=== PATIENT | female | born 1935 | race Caucasian/White ===

== ENCOUNTER → 2018-03-23 | Outpatient (CLI) | payer MEDICARE, MEDICAID ==
[2018-03-23 11:32] LABS: BASOPHILS % (AUTO) 1 % (0-10); EOSINOPHILS # (AUTO) 0.1 10^3/uL (0.0-0.3); EOSINOPHILS % (AUTO) 1 % (0-10); HEMATOCRIT 39 % (35-52); HEMOGLOBIN 13.6 G/DL (11.5-16.0); LYMPHOCYTES # (AUTO) 1.7 X 10^3 (1.0-4.0); LYMPHOCYTES % (AUTO) 26 % (12-44); MEAN CORPUSCULAR HEMOGLOBIN 33 PG (25-34); MEAN CORPUSCULAR HGB CONC 35 G/DL (32-36); MEAN CORPUSCULAR VOLUME 92 FL (80-99); MEAN PLATELET VOLUME 9.7 FL (7.4-10.4); MONOCYTES # (AUTO) 0.6 X 10^3 (0.0-1.0); MONOCYTES % (AUTO) 9 % (0-12); NEUTROPHILS # (AUTO) 4.2 X 10^3 (1.8-7.8); NEUTROPHILS % (AUTO) 63 % (42-75); PLATELET COUNT 306 10^3/uL (130-400); RED BLOOD COUNT 4.18 10^6/uL (4.35-5.85); RED CELL DISTRIBUTION WIDTH 12.8 % (10.0-14.5); WHITE BLOOD COUNT 6.6 10^3/uL (4.3-11.0)
[2018-03-23 11:45] LABS: CALCIUM 9.8 MG/DL (8.5-10.1); CREATININE SERUM 1.19 MG/DL (0.60-1.30); POTASSIUM 4.6 MMOL/L (3.6-5.0)
[2018-03-23 12:14] LABS: ERYTHROCYTE SEDIMENTATION RATE 47 MM/HR (0-30)
== END ==
LOC: LAB 11:07
PROVIDERS: ATTEND Nurse Practitioner
DX: E11.621 Type 2 diabetes mellitus with foot ulcer (principal); L97.514 Non-pressure chronic ulcer of other part of right foot with necrosis of bone
CPT/HCPCS: 36415; 80048; 83036; 85025; 85652

== ENCOUNTER → 2018-03-23 | Outpatient (CLI) | payer MEDICARE, OTHER, MEDICAID | LOC: WOUNDCARE 08:17 | PROVIDERS: ATTEND Nurse Practitioner | DX: E11.621 Type 2 diabetes mellitus with foot ulcer (principal); L97.514 Non-pressure chronic ulcer of other part of right foot with necrosis of bone | CPT/HCPCS: 11044; 87070; 87075; 87205 ==

== ENCOUNTER → 2018-03-30 | Outpatient (CLI) | payer MEDICARE, OTHER, MEDICAID | LOC: WOUNDCARE 10:44 | PROVIDERS: ATTEND Nurse Practitioner | DX: E11.621 Type 2 diabetes mellitus with foot ulcer (principal); L97.514 Non-pressure chronic ulcer of other part of right foot with necrosis of bone | CPT/HCPCS: 11042 ==

== ENCOUNTER → 2018-04-15 | Outpatient (CLI) | payer MEDICARE, OTHER, MEDICAID | LOC: WOUNDCARE 11:27 | PROVIDERS: ATTEND Nurse Practitioner | DX: E11.621 Type 2 diabetes mellitus with foot ulcer (principal); L97.514 Non-pressure chronic ulcer of other part of right foot with necrosis of bone; I70.235 Atherosclerosis of native arteries of right leg with ulceration of other part of foot | CPT/HCPCS: 11042 ==

== ENCOUNTER → 2018-04-22 | Outpatient (CLI) | payer MEDICARE, OTHER, MEDICAID | LOC: WOUNDCARE 10:56 | PROVIDERS: ATTEND Surgery | DX: E11.621 Type 2 diabetes mellitus with foot ulcer (principal); I70.235 Atherosclerosis of native arteries of right leg with ulceration of other part of foot; L97.514 Non-pressure chronic ulcer of other part of right foot with necrosis of bone | CPT/HCPCS: 99213 ==

== ENCOUNTER → 2018-04-29 | Outpatient (CLI) | payer MEDICARE, OTHER, MEDICAID | LOC: WOUNDCARE 10:47 | PROVIDERS: ATTEND Surgery | DX: E11.621 Type 2 diabetes mellitus with foot ulcer (principal); I70.235 Atherosclerosis of native arteries of right leg with ulceration of other part of foot; L97.514 Non-pressure chronic ulcer of other part of right foot with necrosis of bone | CPT/HCPCS: 99212 ==

== ENCOUNTER → 2018-05-06 | Outpatient (CLI) | payer MEDICARE, OTHER, MEDICAID | LOC: WOUNDCARE 10:35 | PROVIDERS: ATTEND Nurse Practitioner | DX: L97.512 Non-pressure chronic ulcer of other part of right foot with fat layer exposed (principal); I70.235 Atherosclerosis of native arteries of right leg with ulceration of other part of foot; E11.621 Type 2 diabetes mellitus with foot ulcer | CPT/HCPCS: 99212 ==

== ENCOUNTER → 2018-05-20 | Outpatient (CLI) | payer MEDICARE, OTHER, MEDICAID | LOC: WOUNDCARE 11:03 | PROVIDERS: ATTEND Nurse Practitioner | DX: E11.621 Type 2 diabetes mellitus with foot ulcer (principal); I70.235 Atherosclerosis of native arteries of right leg with ulceration of other part of foot; L97.512 Non-pressure chronic ulcer of other part of right foot with fat layer exposed | CPT/HCPCS: 99212 ==

== ENCOUNTER → 2018-06-24 | Outpatient (CLI) | payer MEDICARE, MEDICAID | LOC: LAB 11:53 | PROVIDERS: ATTEND Nurse Practitioner | DX: E11.621 Type 2 diabetes mellitus with foot ulcer (principal); L97.512 Non-pressure chronic ulcer of other part of right foot with fat layer exposed; I70.235 Atherosclerosis of native arteries of right leg with ulceration of other part of foot | CPT/HCPCS: 36415; 83036 ==

== ENCOUNTER → 2018-06-24 | Outpatient (CLI) | payer MEDICARE, OTHER, MEDICAID | LOC: WOUNDCARE 10:52 | PROVIDERS: ATTEND Nurse Practitioner | DX: L97.512 Non-pressure chronic ulcer of other part of right foot with fat layer exposed (principal); I70.235 Atherosclerosis of native arteries of right leg with ulceration of other part of foot; E11.621 Type 2 diabetes mellitus with foot ulcer | CPT/HCPCS: 97597 ==

== ENCOUNTER → 2018-06-29 | Outpatient (CLI) | payer MEDICARE, MEDICAID | LOC: RAD 08:40 | PROVIDERS: ATTEND Nurse Practitioner | DX: E11.621 Type 2 diabetes mellitus with foot ulcer (principal); L97.512 Non-pressure chronic ulcer of other part of right foot with fat layer exposed; I70.235 Atherosclerosis of native arteries of right leg with ulceration of other part of foot; Z53.8 Procedure and treatment not carried out for other reasons ==

== ENCOUNTER → 2018-07-01 | Outpatient (CLI) | payer MEDICARE, MEDICAID | LOC: WOUNDCARE 10:45 | PROVIDERS: ATTEND Nurse Practitioner | DX: E11.621 Type 2 diabetes mellitus with foot ulcer (principal); I70.235 Atherosclerosis of native arteries of right leg with ulceration of other part of foot; L97.512 Non-pressure chronic ulcer of other part of right foot with fat layer exposed | CPT/HCPCS: 99212 ==

== ENCOUNTER → 2018-07-22 | Outpatient (CLI) | payer MEDICARE, MEDICAID | LOC: WOUNDCARE 10:36 | PROVIDERS: ATTEND Nurse Practitioner | DX: E11.621 Type 2 diabetes mellitus with foot ulcer (principal); I70.235 Atherosclerosis of native arteries of right leg with ulceration of other part of foot; L97.512 Non-pressure chronic ulcer of other part of right foot with fat layer exposed | CPT/HCPCS: 99213 ==

== ENCOUNTER → 2018-08-05 | Outpatient (CLI) | payer MEDICARE, MEDICAID | LOC: WOUNDCARE 10:58 | PROVIDERS: ATTEND Nurse Practitioner | DX: E11.621 Type 2 diabetes mellitus with foot ulcer (principal); L97.512 Non-pressure chronic ulcer of other part of right foot with fat layer exposed; I70.235 Atherosclerosis of native arteries of right leg with ulceration of other part of foot | CPT/HCPCS: 99213 ==

== ENCOUNTER → 2018-08-11 | Outpatient (CLI) | payer MEDICARE, MEDICAID ==
[~2018-08-11] VITALS: Ht 172.7 cm; Wt 75.3 kg
[~2018-08-11] MED LIST: ALBU18HF2 IH; AMLO5TAB7 PO; APIX5TAB PO; ASPI-586 PO; ATOR80TA76 PO; CATHETER FLUSH 10 ML SYR IV PRN; CHOL100045 PO; CLOP75TA28 PO; DILT180C PO; DOXY100C2 PO; ESOM40CA52 PO; INSU100V SQ; LEVO50TA6 PO; LISI-556 PO; METF500T8 PO; NORT25CA PO; OMEG1CAP58 PO; REGADENOSON 0.4 MG/5 ML SYR (LEXISCAN) IV ONE; VITA100T8 PO
[2018-08-11 09:40] VITALS: BP 154/91
[2018-08-11 09:41] VITALS: BP 145/88
--- NOTE | 2018-08-11 16:31 | STRESS TEST ---
DATE OF SERVICE: 08/11/2018 LEXISCAN MYOVIEW STRESS TEST REPORT Baseline heart rate is 96. Baseline blood pressure 154/91. Baseline EKG is sinus rhythm with occasional APCs with no ischemic changes. In summary, the patient received 10.16 mCi of technetium-99 Myoview and the resting images were obtained. Then, the patient received 0.4 mg of Lexiscan followed by 30.1 mCi of technetium-99 Myoview. Throughout the test, there were no EKG changes. The resting and stress images were reviewed and compared in the short axis, horizontal long axis, and vertical long axis views. Review of the images showed good radiotracer uptake, breast attenuation with mild decreased uptake at the mid to apical anterolateral wall with subtle reversibility. SSS is 4, SDS 2, TID value 1.37, which is elevated for this patient's age. On the gated images, the left ventricle appeared to be in normal size with normal contractility. Calculated ejection fraction 52%. CONCLUSION: 1. The patient tolerated Lexiscan well. 2. Transient ischemic dilatation with TID value 1.37. 3. Normal left ventricular size with breast attenuation, mild ischemia involving the mid to apical anterolateral wall. Job ID: [id number] DocumentID: [id number] Dictated Date: 08/11/2018 15:19:14 Lathe Hand Date: 08/11/2018 16:31:05 Dictated By: GURWINDER CHINCHILLA MD
== END ==
LOC: CARD 08:03
PROVIDERS: ATTEND Internal Medicine Cardiovascular Disease
DX: E11.9 Type 2 diabetes mellitus without complications (principal); I10 Essential (primary) hypertension; E78.2 Mixed hyperlipidemia; I73.9 Peripheral vascular disease, unspecified
CPT/HCPCS: 78452; 93017; 93306

== ENCOUNTER 2018-08-18 07:58 | Day surgery (SDC) | payer MEDICARE, OTHER, MEDICAID ==
[~2018-08-18] VITALS: Ht 172.7 cm; Wt 75.3 kg
[2018-08-18] VITALS (10 sets, daily range): BP systolic 97–162; BP diastolic 73–100
[2018-08-18] MEDS ORDERED: HEParin (CATH LAB) 2,000 ML IV ONE (08:04)
[2018-08-18] MEDS ORDERED: LIDOCAINE 1% INJ 20 ML 20 ML VIAL ONE (08:04)
[2018-08-18] MEDS ORDERED: NS IV 1000 ML 1,000 ML ONE (08:04)
[2018-08-18 08:28] LABS: HEMOGLOBIN 12.2 G/DL (11.5-16.0); MEAN PLATELET VOLUME 9.9 FL (7.4-10.4); RED BLOOD COUNT 3.88 10^6/uL (4.35-5.85); RED CELL DISTRIBUTION WIDTH 13.1 % (10.0-14.5); WHITE BLOOD COUNT 7.5 10^3/uL (4.3-11.0)
--- NOTE | 2018-08-18 08:36 | Diagnostic Imaging Report ---
INDICATION: abn stress, non healing wound, htn, dm COMPARISON: None FINDINGS: Single frontal view of the chest demonstrates normal heart size and pulmonary vascularity. The lungs are well aerated and clear. No large pleural effusion or pneumothorax is seen. The visualized osseous structures show no acute abnormalities. There is calcified aortic atherosclerosis. IMPRESSION: 1. No acute cardiopulmonary process. Dictated by: Dictated on workstation # [id number]
[2018-08-18 08:43] LABS: PROTHROMBIN TIME PATIENT 13.4 SEC (12.2-14.7)
[2018-08-18 08:47] LABS: ALANINE AMINOTRANSFERASE 12 U/L (0-55); ALKALINE PHOSPHATASE 84 U/L (40-136); BILIRUBIN,TOTAL 0.7 MG/DL (0.1-1.0); BUN/CREATININE RATIO 17; CALCIUM 9.5 MG/DL (8.5-10.1); CARBON DIOXIDE 28 MMOL/L (21-32); CHLORIDE 99 MMOL/L (98-107); CHOLESTEROL 120 MG/DL (< 200); CREATININE SERUM 0.86 MG/DL (0.60-1.30); GFR ESTIMATED > 60; GLUCOSE 239 MG/DL (70-105); HDL CHOLESTEROL 38 MG/DL (40-60); POTASSIUM 3.3 MMOL/L (3.6-5.0); SODIUM 141 MMOL/L (135-145); TOTAL PROTEIN 7.8 GM/DL (6.4-8.2); TRIGLYCERIDES 165 MG/DL (<150); VLDL CHOLESTEROL 33 MG/DL (5-40)
[2018-08-18] MEDS ORDERED: OMEG1CAP58 PO (09:24)
[2018-08-18] MEDS ORDERED: DILT180C PO (09:25)
[2018-08-18] MEDS ORDERED: ESOM40CA52 PO (09:25)
[2018-08-18] MEDS ORDERED: ATOR80TA76 PO (09:25)
[2018-08-18] MEDS ORDERED: DOXY100C2 PO (09:26)
[2018-08-18] MEDS ORDERED: LEVO50TA6 PO (09:27)
[2018-08-18] MEDS ORDERED: AMLO5TAB7 PO (09:27)
[2018-08-18] MEDS ORDERED: ASPI-586 PO (09:28)
[2018-08-18] MEDS ORDERED: VITA100T8 PO (09:28)
[2018-08-18] MEDS ORDERED: NORT25CA PO (09:28)
[2018-08-18] MEDS ORDERED: CHOL100045 PO (09:29)
[2018-08-18] MEDS ORDERED: INSU100V SQ (09:30)
[2018-08-18] MEDS ORDERED: NS IV 1000 ML 1,000 ML IV SCH ×2 (09:30→12:17)
[2018-08-18] MEDS ORDERED: LISI-556 PO (09:31)
[2018-08-18] MEDS ORDERED: ALBU18HF2 IH (09:31)
[2018-08-18] MEDS ORDERED: METF500T8 PO (09:31)
[2018-08-18] MEDS ORDERED: APIX5TAB PO (09:32)
--- NOTE | 2018-08-18 09:51 | Cardiac Procedure Note-CS/ASA ---
Pre-Procedure Note Pre-Op Procedure Note H&P Reviewed The H&P was reviewed, patient examined and no changes noted. Date H&P Reviewed: Aug 18, 2018 Time H&P Reviewed: 09:51 Conscious Sedation Pre-Proced Time 09:51 ASA Score 3 For ASA 3 and 4: Consider anesthesia and medical clearance. Also, for patients with a history of failed moderate sedation consider anesthesia. Airway Lungs Heart ASA score ASA 1: a normal healthy patient ASA 2: a patient with a mild systemic disease (mid diabetes, controlled hypertension, obesity x ASA 3: a patient with a severe systemic disease that limits activity (angina , COPD, prior Myocardial infarction) ASA 4: a patient with an incapacitating disease that is a constant threat to life (CHF, renal failure) ASA 5: a moribund patient not expected to survive 24 hrs. (ruptured aneurysm) ASA 6: a declared brain patient whose organs are being harvested. For emergent operations, add the letter E after the classification Mallampati Classification Grade 3 Sedation Plan Analgesia, Amnesia, Plan communicated to team members, Discussed options with patient/fam, Discussed risks with patient/fam The patient is an appropriate candidate to undergo the planned procedure, sedation, and anesthesia. The patient immediately re-assessed prior to indication. GURWINDER CHINCHILLA MD Aug 18, 2018 09:51
[2018-08-18] MEDS ORDERED: MIDAZOLAM 5 MG/5 ML (VERSED) VIAL ONE (09:56)
[2018-08-18] MEDS ORDERED: fentaNYL INJECTION 100 MCG/2 ML AMP ONE ×2 (09:56→11:31)
[2018-08-18] MEDS ORDERED: HEParin 1000 UNIT/ML (10ML VIAL) FOR BOLUS ONE (10:35)
[2018-08-18] MEDS ORDERED: NITRO DRIP 25000 MCG/D5W 250 ML IV ONE (11:29)
[2018-08-18] MEDS ORDERED: MIDAZOLAM 2 MG/2 ML (VERSED) VIAL ONE (11:58)
[2018-08-18] MEDS ORDERED: CLOPIDOGREL 300 MG (PLAVIX) TABLET PO ONE (12:20)
[2018-08-18] MEDS ORDERED: ASPIRIN 325 MG (5 GR) TABLET ONE (12:20)
--- NOTE | 2018-08-18 12:29 | Cardiac Cath Report ---
Cardiac Cath Report Physician (s)/Liquor Commissioner (s) Physician GURWINDER CHINCHILLA MD Pre-Procedure Diagnosis Pre-Procedure Diagnosis: Coronary artery disease, peripheral arterial disease Post-Procedure Note Procedure Start Date: Aug 18, 2018 Name of Procedure: Left heart catheterization Bilateral lower extremity runoff Third order Additional imaging with selective angiogram to the anterior tibial artery and popliteal and peroneal artery Balloon angioplasty to the anterior tibial artery Balloon angioplasty to the peroneal artery Findings/Procedure Note PROCEDURE NOTE: After explaining the procedure to the patient, all pros and cons were explained , all questions were answered. The patient signed the consent and then she was placed on the cardiac catheterization laboratory. Groin was prepped SL fashion local anesthesia was used. Sheath placed in the left femoral artery. Xavier right and left catheter were used to access the coronary system. Pigtail was used to access the left ventricular cavity. Pressure was measured no left ventricular gram was done, pullback LV to aorta was done. Pigtail was placed in the abdominal aorta above the bifurcation and bilateral runoff to the lower extremities were done Patient was given 5000 units of heparin, I had difficulties time crossing from the left groin to the right iliac artery, the successful catheter was UF, Glidewire was used then I advanced straight catheter to the popliteal artery and did angiogram to the right lower extremity then exchanged the sheath over a stork wire into a long 6 [place] sheath. I was able to advance command 14 wire to the anterior tibial artery that was totally occluded, multiple angioplasty were done, no significant improvement, actually initially there was no flow in the anterior tibial artery reintroduce command 18 wire and did balloon angioplasty again with 2.5 then 3.0 balloon improvement in the flow, still have some haziness at the proximal portion of the anterior tibial artery beyond the midportion the artery is occluded. The peroneal artery has sluggish flow, I was able to advance the balloon to the distal peroneal artery. Injected through the balloon and showed disease distally, without significant improvement distally. The balloon was pulled back and angiogram showed no complication. The peroneal artery has a small thrombus at its ostium. I will continue with anticoagulation at this time and monitor closely. The sheath was exchanged again into short 6 [place]i sheath, placed the pigtail catheter back in the abdominal aorta and the small injection showed no complication. ACT was 190 after a total of 8000 units of heparin At the end of the procedure the sheath was removed. Closure device was used FINDINGS: Hemodynamics LV 147/7, end-diastolic pressure of 7 Aorta 144/65 mean of 97 ANATOMY: Left Main has mild disease Left Anterior Descending has 90 percent lesion at the midportion at a trifurcation point involving diagonal and septal branches Left Circumflex has mild disease nonobstructive disease Right Coronory Artery has mild disease nonobstructive disease Left lower extremity: Tortuous artery with mild left common iliac artery disease , the SFA is patent with calcified artery, below the trifurcation it appear to have small vessel disease severe disease Right lower extremity: Tortuous artery, total occlusion of the anterior tibial artery, successful balloon angioplasty with improvement in the artery at its ostium and proximally, distally the artery is still occluded. Severe stenosis at the distal peroneal artery, no significant improvement after angioplasty. The posterior tibial artery has also severe disease which would be treated medically CONCLUSION: 1. 90 percent stenosis at the mid LAD at a trifurcation point involving diagonal and septal branches 2. Total occlusion of the right anterior tibial artery proximally, balloon angioplasty improved the proximal portion, unable to do angioplasty to the distal anterior tibial artery 3. Severe stenosis at the distal right peroneal artery, angioplasty was done, there was small thrombus at the ostium of the peroneal artery 4. Severe stenosis at the distal right posterior tibial artery 5. Heavily calcified SFA bilaterally, severe stenosis below the trifurcation at the left lower extremity DISCUSSION AND RECOMMENDATION: I will continue maximizing medical therapy, patient will need to have an intervention to the LAD which I prefer to refer her to a tertiary care center for evaluation Hospital course Patient was admitted to the floor, started on IV fluid, has been feeling well, I discussed with her the management plan recommended intervention on the LAD with close monitoring to her peripheral arterial disease. She is maintained on aspirin, Eliquis, she will require to be on Plavix once she has the LAD stent. Patient expressed that she is ready and prefer to go as soon as possible to [place]. Arrangement were made with Dr. Daugherty to transfer her to [facility]. Final diagnosis Nonhealing foot ulcer Peripheral arterial disease Coronary artery disease Hypertension Hyperlipidemia Anesthesia Type: Conscious Sedation Estimated blood loss (mL): 50 ml Contrast Amount: 114 ml Total Radiation Dose: 719 mGy Post-Procedure Diagnosis Post-operative diagnosis: Nonhealing foot ulcer Coronary artery disease Peripheral arterial disease Hypertension Hyperlipidemia Diabetes mellitus GURWINDER CHINCHILLA MD Aug 18, 2018 12:29
[2018-08-18] MEDS ORDERED: RT-ALBUTEROL SULF 2.5 MG/3 ML PRE-MIX VIAL IH PRN (12:30)
[2018-08-18] MEDS ORDERED: PATIENT MAY USE OWN MEDS, ALL PO SCH (12:30)
[2018-08-18] MEDS ORDERED: CLOP75TA28 PO (15:13)
[2018-08-18] MEDS ORDERED: NON-FORMULARY MEDICATION 1 EA EA (Insulin Lispro (Humalog) 10 UNIT) SQ SCH (16:00)
[2018-08-18] MEDS ORDERED: inSUlin ASPART (NovoLOG) 1 UNIT/0.01 ML (CHARGE PER UNIT) SC SCH (16:00)
[2018-08-18] MEDS ORDERED: ATORVASTATIN 80 MG (LIPITOR) TABLET PO SCH (21:00)
[2018-08-18] MEDS ORDERED: NORTRIPTYLINE 25 MG (PAMELOR) CAP PO SCH (21:00)
[2018-08-18] MEDS ORDERED: APIXABAN 5 MG (ELIQUIS) TABLET PO SCH (21:00)
[2018-08-18] MEDS ORDERED: NON-FORMULARY MEDICATION 1 EA EA (Amlodipine Besylate 5 MG) PO SCH (21:00)
[2018-08-18] MEDS ORDERED: Doxycycline Hyclate 100 MG CAPSULE PO SCH (21:00)
[2018-08-18] MEDS ORDERED: amLODIPine 5 MG (NORVASC) TAB PO SCH (21:00)
[2018-08-19] MEDS ORDERED: PANTOPRAZOLE 40 MG (PROTONIX) TAB PO SCH (07:00)
[2018-08-19] MEDS ORDERED: OMEGA 3 (FISH OIL) 1000 MG CAP PO SCH (07:00)
[2018-08-19] MEDS ORDERED: NON-FORMULARY MEDICATION 1 EA EA (Esomeprazole Magnesium 40 MG) PO SCH (09:00)
[2018-08-19] MEDS ORDERED: ASPIRIN E.C. 81 MG (ECOTRIN) TAB PO SCH (09:00)
[2018-08-19] MEDS ORDERED: CLOPIDOGREL 75 MG (PLAVIX) TABLET PO SCH (09:00)
[2018-08-19] MEDS ORDERED: DILTIAZEM 180 MG (CARDIZEM CD) CAP PO SCH (09:00)
[2018-08-19] MEDS ORDERED: lisINopril 5 MG (PRINIVIL) TABLET PO SCH (09:00)
[2018-08-19] MEDS ORDERED: NON-FORMULARY MEDICATION 1 EA EA (Diltiazem HCl (Diltiazem 24Hr ER) 180 MG) PO SCH (09:00)
[2018-08-19] MEDS ORDERED: LEVOTHYROXINE 50 MCG (LEVOTHROID) TAB PO SCH (09:00)
== END 2018-08-18 16:45 | disposition short-term general hospital (02) ==
LOC: CATH 07:58 → ICU 14:50 → CATH 16:45
PROVIDERS: ATTEND Internal Medicine Cardiovascular Disease
DX: L97.509 Non-pressure chronic ulcer of other part of unspecified foot with unspecified severity (principal); I25.10 Atherosclerotic heart disease of native coronary artery without angina pectoris; I70.203 Unspecified atherosclerosis of native arteries of extremities, bilateral legs; I10 Essential (primary) hypertension; E78.5 Hyperlipidemia, unspecified; E11.621 Type 2 diabetes mellitus with foot ulcer; Z79.4 Long term (current) use of insulin; Z79.899 Other long term (current) drug therapy; Z79.01 Long term (current) use of anticoagulants; R09.89 Other specified symptoms and signs involving the circulatory and respiratory systems
CPT/HCPCS: 36415; 71045; 75716; 80053; 80061; 82962; 85027; 85610; 85730; 87081; 93458

== ENCOUNTER → 2018-08-26 | Outpatient (CLI) | payer MEDICARE, OTHER, MEDICAID ==
[~2018-08-26] MED LIST changes: -CATHETER FLUSH 10 ML SYR IV PRN; -REGADENOSON 0.4 MG/5 ML SYR (LEXISCAN) IV ONE
== END ==
LOC: WOUNDCARE 14:24
PROVIDERS: ATTEND Orthopaedic Surgery Hand Surgery
DX: E11.621 Type 2 diabetes mellitus with foot ulcer (principal); E11.52 Type 2 diabetes mellitus with diabetic peripheral angiopathy with gangrene; I70.235 Atherosclerosis of native arteries of right leg with ulceration of other part of foot; L97.518 Non-pressure chronic ulcer of other part of right foot with other specified severity
CPT/HCPCS: 99213

== ENCOUNTER 2018-09-07 12:14 | Emergency (ER) | payer MEDICARE, OTHER, MEDICAID ==
[~2018-09-07] VITALS: Ht 172.7 cm; Wt 73.5 kg
--- NOTE | 2018-09-07 14:06 | Diagnostic Imaging Report ---
Clinical indication: The patient fell going to bathroom last night and now has left foot pain. Range of motion is intact. Patient states foot hurts all over. Exam: X-ray of the left foot, 3 views. Comparison: None. Findings: There is diffuse osteopenia. There is a curvilinear sclerotic line seen overlying the anterior aspect of the talar head/neck region. It appears as though this is related to overlapping bony cortical regions, but a sclerotic fracture line cannot be completely excluded. There is also a sclerotic area on the inferior aspect of the calcaneus seen on lateral view and a fracture line cannot be completely excluded. There is hypertrophic calcaneal spur at the Achilles attachment. The spurring of the dorsal midfoot. There is joint space narrowing of the talonavicular region. There is spurring of the first MTP joint. Impression: 1: There are sclerotic lines seen involving the anterior aspect of the talar head/neck junction region and calcaneus on lateral view. These areas may be related to bony excrescence and overlapping bony structures, but a sclerotic fracture line cannot be completely excluded. If there is continued concern for fracture, then CT scan would better evaluate. 2: There is degenerative disease of the foot and ankle. Dictated by: Dictated on workstation # [id number]
--- NOTE | 2018-09-07 14:34 | Diagnostic Imaging Report ---
INDICATION: Fall and pain in left ribs. TIME OF EXAMINATION: 02:31 p.m. FINDINGS: Multiple views of the left ribs were obtained. No displaced rib fracture is seen. No parenchymal contusion, effusion or pneumothorax is seen. IMPRESSION: No displaced rib fractures detected. Dictated by: Dictated on workstation # [id number]
--- NOTE | 2018-09-07 14:50 | ED Lower Extremity ---
General Chief Complaint: Lower Extremity Stated Complaint: FALL;L FOOT PAIN Nursing Triage Note: PT ARRIVED POV WITH DAUGHTER TO ED ET BROUGHT BACK TO ED IN WC. PT STATES SHE FELL GOING TO BATHROOM LAST NIGHT ET SHE NOW HAS LEFT FOOT PAIN. ROM INTACT Nursing Sepsis Screen: No Definite Risk History of Present Illness Date Seen by Provider: Sep 07, 2018 Time Seen by Provider: 13:15 Initial Comments 82-year-old female presents for left foot pain. She reports last evening that she tripped in her doorway getting up to go to the bathroom. She sustained an injury to her left foot and left ribs. She is recently been hospitalized for cardiac procedures. In addition she wears a rehabilitation shoe on her right foot for a healing diabetic ulcer. She denies any head injury at the time of her fall or loss of consciousness. She is on Eliquis. She uses a walker or wheelchair at all times. Onset: this morning Pain/Injury Location: left foot Method of Injury: fell Modifying Factors: Improves With Rest Allergies and Home Medications Allergies Coded Allergies: No Allergy Information Available (Unverified , 04/05/18) Home Medications Albuterol Sulfate 18 Gm Hfa.aer.ad, 2 PUFF IH PRN, (Reported) Amlodipine Besylate 5 Mg Tablet, 5 MG PO HS, (Reported) Apixaban 5 Mg Tablet, 5 MG PO BID, (Reported) Aspirin 81 Mg Tablet.dr, 81 MG PO DAILY, (Reported) Atorvastatin Calcium 80 Mg Tablet, 80 MG PO HS, (Reported) Cholecalciferol (Vitamin D3) 1,000 Unit Tablet, 1,000 UNIT PO DAILY, (Reported) Clopidogrel Bisulfate 75 Mg Tablet, 75 MG PO DAILY Prescribed by: GURWINDER CHINCHILLA on 08/18/18 1513 Diltiazem HCl 180 Mg Cap.er.24h, 180 MG PO DAILY, (Reported) Doxycycline Hyclate 100 Mg Capsule, 100 MG PO BID, (Reported) Esomeprazole Magnesium 40 Mg Capsule.dr, 40 MG PO DAILY, (Reported) Insulin Lispro 100 Unit/1 Ml Vial, 10 UNIT SQ TIDAC, (Reported) Levothyroxine Sodium 50 Mcg Tablet, 50 MCG PO DAILY, (Reported) Lisinopril 5 Mg Tablet, 5 MG PO DAILY, (Reported) Metformin HCl 500 Mg Tab.er.24h, 1,000 MG PO BID, (Reported) Nortriptyline HCl 25 Mg Capsule, 25 MG PO HS, (Reported) [place]-3 Fatty Acids/Fish Oil 1 Each Capsule, 1 EACH PO DAILY, (Reported) Vitamin E Mixed 100 Unit Tablet, 100 UNIT PO DAILY, (Reported) Patient Home Medication List Home Medication List Reviewed: Yes Review of Systems Constitutional: no symptoms reported, see HPI Respiratory: see HPI, other (left anterior rib pain, no crepitus or ecchymosis noted) Musculoskeletal: see HPI, joint pain (left foot) All Other Systems Reviewed Negative Unless Noted: Yes Past Oobynot-Lxsjsy-Znkzyz Hx Past Med/Social Hx: Reviewed Nursing Past Med/Soc Hx Patient Social History Type Used: Cigarettes Former Smoker, Quit: Aug 18, 1962 Recent Foreign Travel: No Contact w/Someone Who Travel: No Recent Infectious Disease Expo: No Physical Abuse: No Sexual Abuse: No Mistreated: No Immunizations Up To Date Date of Influenza Vaccine: Jun 28, 2018 Past Medical History Hysterectomy, Orthopedic Atrial Fibrillation, High Cholesterol, Hypertension Physical Exam Vital Signs Vital Signs - First Documented 09/07/18 12:45 Temp 98.7 Pulse 98 Resp 18 B/P (MAP) 148/74 (98) Pulse Ox 98 O2 Delivery Room Air Capillary Refill : Less Than 3 Seconds Height, Weight, BMI Height: 5'8.00" Weight: 162lbs. 0.0oz. 73.698517ql; 25.2 BMI Method:Stated General Appearance: WD/WN, no apparent distress Neck: non-tender, full range of motion, supple, normal inspection Cardiovascular: normal peripheral pulses, regular rate, rhythm, no murmur, other (pedal pulses 2+ and symmetric) Respiratory: No chest non-tender; lungs clear, normal breath sounds, no respiratory distress, no accessory muscle use, other (tenderness to palpation anterior left chest wall) Gastrointestinal: normal bowel sounds, non tender, soft Ankles: left ankle normal inspection, left ankle normal range of motion, left ankle no evidence of injury, left ankle soft tissue tenderness Feet: left foot normal inspection, left foot normal range of motion, left foot soft tissue tenderness Neurologic/Psychiatric: no motor/sensory deficits, alert, normal mood/affect, oriented x 3 Skin: normal color, warm/dry Progress/Results/Core Measures Results/Orders My Orders Orders - ALLA ENCARNACION Foot, Left, 3 Views (09/07/18 13:05) Ribs, Left 2-3 Views (09/07/18 13:53) Vital Signs/I&O 09/07/18 09/07/18 12:45 14:54 Temp 98.7 98.3 Pulse 98 81 Resp 18 18 B/P (MAP) 148/74 (98) 136/72 (93) Pulse Ox 98 100 O2 Delivery Room Air Room Air Blood Pressure Mean: 98 Diagnostic Imaging Diagonstic Imaging: Xray Plain Films/CT/US/NM/MRI: other (left ribs) Comments NAME: FILI NEGRETE [facility] REC#: [id number] PT STATUS: REG ER : 1935 PHYSICIAN: ALLA ENCARNACION ADMIT DATE: 09/07/18/ER Draft Date of Exam:09/07/18 RIBS, LEFT 2-3 VIEWS INDICATION: Fall and pain in left ribs. TIME OF EXAMINATION: 02:31 p.m. FINDINGS: Multiple views of the left ribs were obtained. No displaced rib fracture is seen. No parenchymal contusion, effusion or pneumothorax is seen. IMPRESSION: No displaced rib fractures detected. Dictated on workstation # [id number] Dict: 09/07/18 1428 Trans: 09/07/18 1433 [facility] [id number] Interpreted by: TENZIN PALOMARES MD Electronically signed by: Diagonstic Imaging: Xray Plain Films/CT/US/NM/MRI: ankle Comments NAME: FILI NEGRETE [facility] REC#: [id number] PT STATUS: REG ER : 1935 PHYSICIAN: ALLA ENCARNACION ADMIT DATE: 09/07/18/ER Draft Date of Exam:09/07/18 FOOT, LEFT, 3 VIEWS Clinical indication: The patient fell going to bathroom last night and now has left foot pain. Range of motion is intact. Patient states foot hurts all over. Exam: X-ray of the left foot, 3 views. Comparison: None. Findings: There is diffuse osteopenia. There is a curvilinear sclerotic line seen overlying the anterior aspect of the talar head/neck region. It appears as though this is related to overlapping bony cortical regions, but a sclerotic fracture line cannot be completely excluded. There is also a sclerotic area on the inferior aspect of the calcaneus seen on lateral view and a fracture line cannot be completely excluded. There is hypertrophic calcaneal spur at the Achilles attachment. The spurring of the dorsal midfoot. There is joint space narrowing of the talonavicular region. There is spurring of the first MTP joint. Impression: 1: There are sclerotic lines seen involving the anterior aspect of the talar head/neck junction region and calcaneus on lateral view. These areas may be related to bony excrescence and overlapping bony structures, but a sclerotic fracture line cannot be completely excluded. If there is continued concern for fracture, then CT scan would better evaluate. 2: There is degenerative disease of the foot and ankle. Dictated on workstation # [id number] Dict: 09/07/18 1337 Trans: 09/07/18 1406 CV [id number] Interpreted by: YURI VELA MD Electronically signed by: Reviewed: Reviewed by Me Departure Impression Primary Impression: Fall Qualified Codes: W19.XXXA - Unspecified fall, initial encounter Additional Impression: Ankle sprain Qualified Codes: S93.492A - Sprain of other ligament of left ankle, initial encounter Disposition: 01 HOME, SELF-CARE Condition: Improved Departure-Patient Inst. Decision time for Depature: 14:20 Referrals: NO,LOCAL PHYSICIAN (PCP/Family) Primary Care Physician Patient Instructions: Ankle Sprain (DC) Add. Discharge Instructions: Ice and elevate left ankle. Use Osvaldo wrap for support. You may take Tylenol 650 mg every 6 hours as needed for pain. Follow-up with your primary care provider if symptoms are not improving or worsen. Return to emergency department for new, acute injuries. All discharge instructions reviewed with patient and/or family. Voiced understanding. ALLA ENCARNACION Sep 07, 2018 14:50
[2018-09-07 14:54] VITALS: BP 136/72
== END 2018-09-07 14:55 | disposition home or self-care (01) ==
LOC: EDUNIT# 12:14 → ER 12:15
DX: S93.492A Sprain of other ligament of left ankle, initial encounter (principal); R07.81 Pleurodynia; E11.621 Type 2 diabetes mellitus with foot ulcer; L97.519 Non-pressure chronic ulcer of other part of right foot with unspecified severity; I48.91 Unspecified atrial fibrillation; I10 Essential (primary) hypertension; E78.00 Pure hypercholesterolemia, unspecified; Z79.82 Long term (current) use of aspirin; Z79.01 Long term (current) use of anticoagulants; Z79.4 Long term (current) use of insulin; Z87.891 Personal history of nicotine dependence; W01.0XXA Fall on same level from slipping, tripping and stumbling without subsequent striking against object, initial encounter; Y92.002 Bathroom of unspecified non-institutional (private) residence as the place of occurrence of the external cause
CPT/HCPCS: 71100; 73630

== ENCOUNTER → 2018-09-07 | Outpatient (CLI) | payer MEDICARE, OTHER, MEDICAID | LOC: WOUNDCARE 10:52 | PROVIDERS: ATTEND Nurse Practitioner | DX: E11.621 Type 2 diabetes mellitus with foot ulcer (principal); L97.518 Non-pressure chronic ulcer of other part of right foot with other specified severity; E11.52 Type 2 diabetes mellitus with diabetic peripheral angiopathy with gangrene; I70.361 Atherosclerosis of unspecified type of bypass graft(s) of the extremities with gangrene, right leg | CPT/HCPCS: 99213 ==

== ENCOUNTER → 2018-09-28 | Outpatient (CLI) | payer MEDICARE, OTHER, MEDICAID | LOC: WOUNDCARE 10:48 | PROVIDERS: ATTEND Nurse Practitioner | DX: E11.621 Type 2 diabetes mellitus with foot ulcer (principal); L97.518 Non-pressure chronic ulcer of other part of right foot with other specified severity; E11.52 Type 2 diabetes mellitus with diabetic peripheral angiopathy with gangrene; I70.361 Atherosclerosis of unspecified type of bypass graft(s) of the extremities with gangrene, right leg | CPT/HCPCS: 99212 ==

== ENCOUNTER → 2018-10-07 | Outpatient (CLI) | payer MEDICARE, OTHER, MEDICAID ==
[2018-10-07 14:34] LABS: BASOPHILS % (AUTO) 0 % (0-10); EOSINOPHILS # (AUTO) 0.1 10^3/uL (0.0-0.3); EOSINOPHILS % (AUTO) 0 % (0-10); HEMATOCRIT 34 % (35-52); HEMOGLOBIN 10.9 G/DL (11.5-16.0); LYMPHOCYTES # (AUTO) 1.3 X 10^3 (1.0-4.0); LYMPHOCYTES % (AUTO) 9 % (12-44); MEAN CORPUSCULAR HEMOGLOBIN 30 PG (25-34); MEAN CORPUSCULAR HGB CONC 32 G/DL (32-36); MEAN CORPUSCULAR VOLUME 92 FL (80-99); MEAN PLATELET VOLUME 9.3 FL (7.4-10.4); MONOCYTES % (AUTO) 7 % (0-12); NEUTROPHILS # (AUTO) 12.2 X 10^3 (1.8-7.8); NEUTROPHILS % (AUTO) 84 % (42-75); PLATELET COUNT 482 10^3/uL (130-400); RED BLOOD COUNT 3.65 10^6/uL (4.35-5.85); RED CELL DISTRIBUTION WIDTH 14.2 % (10.0-14.5); WHITE BLOOD COUNT 14.6 10^3/uL (4.3-11.0)
[2018-10-07 15:18] LABS: BAND NEUTROPHILS 1 %; BASOPHILS % (MANUAL) 0 %; EOSINOPHILS % (MANUAL) 1 %; LYMPHOCYTES % (MANUAL) 6 %; MONOCYTES % (MANUAL) 6 %; NEUTROPHILS % (MANUAL) 86 %; RBC MORPH NORMAL
== END ==
LOC: LAB 14:19
PROVIDERS: ATTEND Internal Medicine Cardiovascular Disease
DX: E11.9 Type 2 diabetes mellitus without complications (principal); E78.2 Mixed hyperlipidemia; I10 Essential (primary) hypertension; I73.9 Peripheral vascular disease, unspecified
CPT/HCPCS: 36415; 85007; 85027

== ENCOUNTER 2018-10-14 09:02 | Inpatient (IN) | payer MEDICARE, OTHER, MEDICAID ==
[~2018-10-14] VITALS: Ht 172.7 cm; Wt 73.7 kg
[2018-10-14] MEDS ORDERED: LOPERAMIDE 2 MG (IMODIUM) CAP PO PRN (09:15)
[2018-10-14] MEDS ORDERED: DOCUSATE SODIUM 100 MG (COLACE) CAP PO PRN (09:15)
[2018-10-14] MEDS ORDERED: CALCIUM CARBONATE 500 MG (TUMS) TAB.CHEW PO PRN (09:15)
[2018-10-14] MEDS ORDERED: ACETAMINOPHEN 500 MG TAB (TYLENOL) PO PRN (09:15)
[2018-10-14] MEDS ORDERED: MELATONIN 3 MG TABLET PO PRN (09:15)
[2018-10-14] MEDS ORDERED: diphenhydrAMINE 25 MG TAB (BENADRYL) PO PRN (09:15)
[2018-10-14] MEDS ORDERED: ONDANSETRON 4 MG/2 ML (SDV) Z0FRAN IVP PRN (09:15)
[2018-10-14 09:47] LABS: BASOPHILS % (AUTO) 0 % (0-10); EOSINOPHILS % (AUTO) 0 % (0-10); HEMATOCRIT 30 % (35-52); HEMOGLOBIN 9.5 G/DL (11.5-16.0); LYMPHOCYTES % (AUTO) 7 % (12-44); MEAN CORPUSCULAR HEMOGLOBIN 30 PG (25-34); MEAN CORPUSCULAR HGB CONC 32 G/DL (32-36); MEAN CORPUSCULAR VOLUME 92 FL (80-99); MEAN PLATELET VOLUME 8.8 FL (7.4-10.4); MONOCYTES # (AUTO) 0.8 X 10^3 (0.0-1.0); MONOCYTES % (AUTO) 6 % (0-12); NEUTROPHILS # (AUTO) 12.5 X 10^3 (1.8-7.8); NEUTROPHILS % (AUTO) 87 % (42-75); PLATELET COUNT 643 10^3/uL (130-400); RED BLOOD COUNT 3.22 10^6/uL (4.35-5.85); RED CELL DISTRIBUTION WIDTH 14.8 % (10.0-14.5); WHITE BLOOD COUNT 14.3 10^3/uL (4.3-11.0)
[2018-10-14] MEDS ORDERED: PIPERACILLIN/TAZO 4.5 GM/NS 100 ML IV NR ×2 (10:00)
--- NOTE | 2018-10-14 10:00 | NUR ---
FILI CADEN admitted to room 429-1, with an admitting diagnosis of WOUND TO RIGHT GREAT TOE, on 10/14/[address] JARA'S OFFICE via W/C, accompanied by DAUGHTER.FILI NEGRETE introduced to surroundings, call light, bed controls, phone, TV, temperature control, lights, meal times, smoking policy, visitor policy, side rail policy, bathrooms and showers. Patient Rights given to patient in the handbook.FILI NEGRETE verbalizes understanding that [facility] is not responsible for the loss or damage to any personal effects or valuables that are kept in the patients posession during their hospitalization. The following Patient Care Plans were discussed with the PT: Discharge Planning, PAIN CONTROL,IV MEDS AND IV THERAPY, and TESTS AND PROCEDURES. FILI NEGRETE verbalizes understanding of Interdisciplinary Patient Education. Patient and/or family were informed about the Rapid Response Team and its purpose.
[2018-10-14 10:07] LABS: ALANINE AMINOTRANSFERASE 15 U/L (0-55); ALBUMIN 3.5 GM/DL (3.2-4.5); ALKALINE PHOSPHATASE 114 U/L (40-136); BILIRUBIN,TOTAL 0.4 MG/DL (0.1-1.0); BUN/CREATININE RATIO 17; CARBON DIOXIDE 25 MMOL/L (21-32); CHLORIDE 104 MMOL/L (98-107); GFR ESTIMATED > 60; GLUCOSE 230 MG/DL (70-105); POTASSIUM 3.4 MMOL/L (3.6-5.0); SODIUM 139 MMOL/L (135-145); TOTAL PROTEIN 7.2 GM/DL (6.4-8.2)
[2018-10-14 10:08] LABS: ANISOCYTOSIS SLIGHT; BAND NEUTROPHILS 0 %; BASOPHILS % (MANUAL) 0 %; EOSINOPHILS % (MANUAL) 0 %; LYMPHOCYTES % (MANUAL) 4 %; MONOCYTES % (MANUAL) 5 %; NEUTROPHILS % (MANUAL) 91 %; POIKILOCYTOSIS SLIGHT
[2018-10-14 10:09] LABS: ELLIPT/OVALOCYTES SLIGHT
--- NOTE | 2018-10-14 10:27 | History & Physical-Hospitalist ---
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 Saenz's office. She was sent over for definitive treatment for diabetic foot ulcer with infection and gangrene that was in need of some sort of amputation. He recommended vascular evaluation and would be available to do any type of surgery on the fat when Dr. Tolbert was consulted and knew the patient very well since unsuccessfully performed peripheral revascularization through stent and intervention who then was referred to [facility] who could not be successful at the intervention either so a right below the knee amputation was recommended by multiple physicians and Dr. Garcia so recommended general surgery to perform this since it was above the ankle for his podiatry specialty. Patient is a very poor historian she obviously has some sort of memory deficit versus dementia and I obtained most of the information by reviewing her home medication. At this current time patient does report pain but she has had some side effects from pain medication in the past that makes her sleep walk and become confused. I spoke with who will see her in consultation for bloody stools that she is reporting and arrange for right below the knee amputation on Thursday. Source: patient Exam Limitations: other (dementia) Date Seen 10/14/18 Time Seen by a Provider: 10:30 Attending Physician Flores Nava DO PCP No,Local Physician Referring Physician Date of Admission Oct 14, 2018 at 09:11 Home Medications & Allergies Home Medications Reviewed patient Home Medication Reconciliation performed by pharmacy medication reconciliations sterile supply technician and/or nursing. Patients Allergies have been reviewed. Allergies Allergies Coded Allergies No Allergy Information Available (Unverified04/05/18) Past Bcrkjpo-Jefevg-Cvcqvb Hx Past Med/Social Hx: Reviewed Nursing Past Med/Soc Hx, Reviewed and Corrections made Patient Social History Marrital Status: single Alcohol Use: Denies Use Smoking Status: Former Smoker Former Smoker, Quit: Aug 18, 1962 Type Used: Cigarettes Recent Foreign Travel: No Contact w/other who traveled: No Immunizations Up To Date Date of Influenza Vaccine: Jun 28, 2018 Past Medical History Surgeries: Hysterectomy, Orthopedic Respiratory: Asthma, COPD Cardiac: Atrial Fibrillation, Coronary Artery Disease, High Cholesterol, Hypertension, Valvular Heart Disease Neurological: Dementia, Neuropathy Genitourinary: Bladder Infection Gastrointestinal: Chronic Constipation Musculoskeletal: Arthritis Endocrine: Diabetes, Insulin dep, Hypothyroidsim Family History Hypertension Review of Systems Constitutional: see HPI, dizziness, weakness EENTM: no symptoms reported Respiratory: no symptoms reported Cardiovascular: no symptoms reported Gastrointestinal: loss of appetite, melena Genitourinary: no symptoms reported Musculoskeletal: joint pain Skin: no symptoms reported Psychiatric/Neurological: No Symptoms Reported All Other Systems Reviewed Negative Unless Noted: Yes Physical Exam Physical Exam Vital Signs Vital Signs - First Documented 10/14/18 12:00 Temp 97.0 Pulse 98 Resp 18 B/P (MAP) 164/84 (110) Pulse Ox 98 O2 Delivery Room Air Capillary Refill : Height, Weight, BMI Height: 5'8.00" Weight: 162lbs. 0.0oz. 73.286973tw; 25.2 BMI Method:Stated General Appearance: No Apparent Distress, WD/WN, Chronically ill Eyes: Bilateral Eye Normal Inspection, Bilateral Eye PERRL HEENT: PERRL/EOMI, Normal ENT Inspection, Pharynx Normal Neck: Full Range of Motion, Normal Inspection, Non Tender, Supple, Carotid Bruit Respiratory: Chest Non Tender, Lungs Clear, Normal Breath Sounds, No Accessory Muscle Use, No Respiratory Distress Cardiovascular: Regular Rate, Rhythm, No Edema, No Gallop, No JVD, Normal Peripheral Pulses, Systolic Murmur, Irregularly Irregular Gastrointestinal: Normal Bowel Sounds, No Organomegaly, No Pulsatile Mass, Non Tender, Soft Back: Normal Inspection, No CVA Tenderness, No Vertebral Tenderness Extremity: Normal Capillary Refill, Normal Inspection, Normal Range of Motion, Non Tender, No Calf Tenderness, No Pedal Edema, Pedal Edema (left), Other (dark area of right first toe that extendes down the medial side of the right food with blister to plantar aspect of right medial foot. multiple healing scabs to bilateral LE) Neurologic/Psychiatric: Alert, No Motor/Sensory Deficits, Normal Mood/Affect, Disoriented Skin: Normal Color, Warm/Dry Lymphatic: No Adenopathy Results Results/Procedures Labs Laboratory Tests 10/14/18 09:40 Patient resulted labs reviewed. Assessment/Plan Admission Diagnosis Assessment: Right acute infected diabetic ulcer of the right foot with gangrene in need of below the knee amputation due to unsuccessful intervention for vascular compromise Chronic atrial fibrillation on anticoagulation Valvular heart disease with systolic murmur Hypertension Diabetes mellitus Hyperlipidemia Anemia Bloody stools consulting general surgery Hypothyroidism Dementia Plan: Appreciate Dr. Garcia help with below the knee amputation Thursday and evaluation of bloody stools Hold anticoagulation in preparation for amputation Blood sugar checks Check labs IV antibiotics Home meds otherwise Pain control Admission Status: Inpatient Order (span 2 midnights) Reason for Inpatient Admission: Gangrenous right foot with acute infection will require 5 days of hospital stay Diagnosis/Problems Diagnosis/Problems (1) Gangrene of right foot Status: Acute (2) Diabetes mellitus Status: Chronic Qualifiers: Diabetes mellitus type: type 2 Diabetes mellitus buttermaker continuous churn insulin use: with buttermaker continuous churn use Diabetes mellitus complication status: with circulatory complication Diabetes mellitus complication detail: with other circulatory complications Qualified Codes: E11.59 - Type 2 diabetes mellitus with other circulatory complications; Z79.4 - buttermaker continuous churn (current) use of insulin (3) Atrial fibrillation Status: Chronic Qualifiers: Atrial fibrillation type: chronic Qualified Codes: I48.2 - Chronic atrial fibrillation (4) Hypertension Status: Chronic Qualifiers: Hypertension type: essential hypertension Qualified Codes: I10 - Essential (primary) hypertension (5) Hyperlipemia Status: Chronic Qualifiers: Hyperlipidemia type: mixed hyperlipidemia Qualified Codes: E78.2 - Mixed hyperlipidemia (6) Hypothyroidism (7) Anemia Status: Acute Qualifiers: Anemia type: iron deficiency Iron deficiency anemia type: chronic blood loss Qualified Codes: D50.0 - Iron deficiency anemia secondary to blood loss ( chronic) (8) Melena Status: Acute (9) COPD (chronic obstructive pulmonary disease) Status: Chronic Qualifiers: COPD type: unspecified COPD Qualified Codes: J44.9 - Chronic obstructive pulmonary disease, unspecified (10) CHF (congestive heart failure) Status: Chronic Qualifiers: Heart failure type: unspecified Heart failure chronicity: unspecified Qualified Codes: I50.9 - Heart failure, unspecified (11) Right foot ulcer Status: Acute Qualifiers: Non-pressure ulcer stage: with necrosis of bone Qualified Codes: L97.514 - Non-pressure chronic ulcer of other part of right foot with necrosis of bone JAMEL ELMORE A MEDICAL STUDENT 10/14/18 1033: History of Present Illness HPI/Chief Complaint This is an 82 year old female with Hx of HTN and DM who was a direct admit from Dr Saenz for right foot ulcer. Pt states that this has been progressivly worsening over the last 13 months. Pt states it started as a blister of her right first toe and has continued to spread and worsen and become darker. Pt states she saw a wound care doctor in [place]. Pt states the pain is a 10/10 and that nothing makes the pain better or worse. Pt states she has tried IBU which has not helped. Pt also c/o GI bleed that she states has been going on, pt states over the weekend she noticed some red blood in the toilet and states that she has episodes of this. Pt also states that she has felt slightly SOB this last week. Pt denies any fever, chills, CP, LIMON, abd pain, N/V/D, constipation, cough. Source: patient Exam Limitations: no limitations Time Seen by a Provider: 10:05 Home Medications & Allergies Allergies Codeine Past Nqnasaf-Fbnodw-Otovrk Hx Patient Social History Alcohol Use: Denies Use Smoking Status: Former Smoker Family History Diabetes Review of Systems Constitutional: no symptoms reported; No chills, No fever EENTM: No ear pain, No throat pain Respiratory: short of breath (occasional) Gastrointestinal: No abdominal pain, No constipation, No diarrhea, No nausea, No vomiting Physical Exam Physical Exam General Appearance: No Apparent Distress, WD/WN Eyes: Bilateral Eye EOMI Neck: Full Range of Motion Respiratory: Lungs Clear, Normal Breath Sounds, No Accessory Muscle Use, No Respiratory Distress Cardiovascular: Systolic Murmur, Other (2+ DP of right foot) Gastrointestinal: Non Tender, Soft Extremity: Pedal Edema (left), Other (dark area of right first toe that extendes down the medial side of the right food with blister to plantar aspect of right medial foot. multiple healing scabs to bilateral LE) Neurologic/Psychiatric: Alert, Oriented x3 Assessment/Plan Assessment and Plan Right foot ulcer 1/3 - will start pt on IV Abx Peripheral Arterial disease 1/3 - will obtain US or RLE to assess arterial flow Gas Gangrene 1/3 - Start pt on IV abx Anemia 1/3 - suspected to be secondary to GI bleed and anticoagulation History of diabetes 1/3 - will start pt on sliding scale insulin History of Afib 1/3 - currently stable DVT prophylaxis 1/3 - SCD except on RLE FLORES NAVA DO Oct 14, 2018 10:27 JAMEL ELMORE MEDICAL STUDENT Oct 14, 2018 10:33
[2018-10-14] MEDS ORDERED: ENOXAPARIN 40 MG/0.4 ML (LOVENOX) SYR SC SCH (10:30)
[2018-10-14] MEDS ORDERED: VANCOMYCIN INJECTION 1,500 MG in NS IV 500 ML 500 ML IV NR (10:30)
--- NOTE | 2018-10-14 10:43 | NUR ---
VANCOMYCIN DOSING SCR 0.7 (USED 1.0); CRCL ~ 43; BOLUS VANC 20 MG/KG X 74 KG ~ 1500 MG THEN VANC 15 MG/KG ~ 1250 MG Q24H CHECK TROUGH LEVEL 10/16 AT 0930 HOLD DOSE AND CONTACT PHARMACY IF LEVEL IS GREATER THAN 20
[2018-10-14] MEDS: HYDROcodone/APAP 5 MG/325 MG (LORTAB) TAB PO PRN ×3 (10:52→20:56)
[2018-10-14] MEDS: NS IV 1000 ML 1,000 ML IV SCH ×2 (10:52→23:33)
[2018-10-14] MEDS: inSUlin ASPART (NovoLOG) 1 UNIT/0.01 ML (CHARGE PER UNIT) SC SCH ×3 (11:17→20:56)
[2018-10-14] MEDS ORDERED: INSU100I23 SQ (11:49)
[2018-10-14] MEDS ORDERED: CLOP75TA69 PO (11:49)
[2018-10-14] MEDS ORDERED: FERR-84 PO (11:53)
[2018-10-14] MEDS ORDERED: CHOL20003 PO (11:53)
[2018-10-14] MEDS ORDERED: ACET-2267 PO (11:53)
[2018-10-14] MEDS ORDERED: ASCO-262 PO (11:53)
[2018-10-14] MEDS ORDERED: PYRI100T2 PO (11:53)
[2018-10-14] MEDS ORDERED: VITA200C60 PO (11:53)
[2018-10-14] MEDS ORDERED: IBUP-30 PO (11:53)
--- NOTE | 2018-10-14 11:55 | Diagnostic Imaging Report ---
Right lower extremity arterial Doppler. Indication: Right foot ulcer. Spectral color flow imaging of the arterial system of the right lower extremity was performed. There are no prior studies available for comparison. There is fairly good arterial blood flow in the common femoral, superficial femoral and popliteal arteries. Biphasic waveforms were seen and there is no abrupt alteration of the velocities to suggest a hemodynamically significant stenosis. However the waveform does change to monophasic in the trifurcation arteries. There is no abrupt alteration of velocities but I suspect that there is some diminished arterial blood flow to the right lower extremity due to trifurcation disease. If further imaging is desired, then CT of the aorta with bilateral runoffs would be recommended. 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 Recommendations as above. Dictated by: Dictated on workstation # [id number]
[2018-10-14] MEDS ORDERED: RT-ALBUINH IH (11:56)
[2018-10-14 12:00] VITALS: BP 164/84
--- NOTE | 2018-10-14 12:01 | NUR ---
Pt is Jain but does not have a local arc air operator and has not been able to attend adventist at home because of health issues. Children Counselor responded to a request through RN. Pt spoke of her ongoing health issues related to diabetes and has been told that at least part of her foot will need to be amputated. She expressed acceptance of this and a desire to get it over with. She has many children and grandchildren. A daughter lives with ehr and helps care for her. Pt spoke of her daily prayer life and a sense of God;s presence with her. Children Counselor listened, provided encouragement, affirmed and offered prayer.
[2018-10-14] MEDS ORDERED: PANTOPRAZOLE 40 MG (PROTONIX) TAB PO NR (12:15)
--- NOTE | 2018-10-14 12:32 | Diagnostic Imaging Report ---
INDICATION: COPD PA and lateral chest Heart size and pulmonary vascularity are normal. Lungs are clear. There are no effusions or pneumothoraces. IMPRESSION: Negative chest. Dictated by: Dictated on workstation # [id number]
[2018-10-14] MEDS: fentaNYL INJECTION 100 MCG/2 ML AMP IVP PRN ×2 (12:36→18:04)
[2018-10-14] MEDS ORDERED: LACTATED RINGERS 1,000 ML IV PRN (12:42)
--- NOTE | 2018-10-14 12:49 | Diagnostic Imaging Report ---
Clinical indication: Patient had a blister on the foot that would not heal. Great toe is effected. Exam: X-ray of the right foot, AP lateral views. Comparison: None. Findings: There is diffuse osteopenia and vascular calcification seen. There is no bony erosive or destructive process seen on this exam. There is dressing or bandage seen adjacent to the first toe. There is soft tissue swelling in the region of the first toe and first distal metatarsal region. There is no radiodense foreign object. There is moderately hypertrophic spurs involving the dorsal midfoot and hypertrophic calcaneal spurs at the plantar and Achilles attachment. Impression: 1: There is no acute fracture or dislocation. 2: There is no bony erosive or destructive process. 3: There is soft tissue swelling adjacent to the first toe and distal first metatarsal region. There is no radiodense foreign object. 4: Degenerative disease of the right foot and ankle. Dictated by: Dictated on workstation # [id number]
--- NOTE | 2018-10-14 13:23 | NUR ---
HAD A LIST FAXED OVER FROM [facility] IN [facility]. 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 SHE STATES SHE USES 10 UNITS WITH MEALS IF HER BLOOD SUGAR IS ABOVE 150, IF IT IS BELOW 150 SHE DOES NOT USE INSULIN. SHE ALSO STATES SHE TAKES SOME OTC MEDICATIONS BUT NOT ASPIRIN. ASPIRIN WAS NOT LISTED TO THE MED LIST FROM [facility] EITHER SO I DID NOT INCLUDE IT ON THE MED REC. [facility] FILLED: 10-07-18 PLAVIX 75MG DAILY #90 (NOT ON [facility] MED LIST BUT FAIRLY NEW SCRIPT) 09-22-18 LEVOTHYROXINE 50MCG DAILY #30 09-22-18 METFORMIN ER 500MG 2 TABS BID #360 09-22-18 HUMALOG KWIKPEN 10 UNITS PLUS SLIDING SCALE TID MAX 50 (USES 10 FOR BS>150) 09-20-18 LISINOPRIL 5MG EVENING #90 09-03-18 ESOMEPRAZOLE 40MG DAILY #90 07-19-18 ELIQUIS 5MG BID #180 07-09-18 AMLODIPINE 5MG EVENING #90 06-24-18 ATORVASTATIN 80MG HS #90 06-11-18 DILTIAZEM ER 180MG CAP DAILY #90 06-11-18 NORTRIPTYLINE 25MG HS #90 PROAIR NO ON FILE BUT IS ON [facility] MED LIST PRN OTC MEDS: ADVIL PRN TYLENOL PRN VITAMIN C DAILY VITAMIN D DAILY IRON DAILY FISH OIL DAILY (LISTED LOVAZA ON [facility] LIST HOWEVER LOVAZA NOT FILLED RECENTLY) B 6 DAILY VITAMIN E DAILY
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
[2018-10-14] MEDS: ALPRAZolam 0.25 MG (XANAX) TAB PO PRN (13:52)
[2018-10-14] MEDS: RT-ALBUTEROL/IPRATROPIUM 3 ML (DUONEB) VIAL INH SCH ×2 (15:20→20:01)
[2018-10-14 16:31] VITALS: BP 159/74
[2018-10-14] MEDS: PIPERACILLIN SODIUM/TAZOBACTAM 4.5 GM in NS (IVPB) 100 ML IV SCH (16:40)
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
[2018-10-14 19:40] VITALS: BP 147/78
[2018-10-14] MEDS ORDERED: NON-FORMULARY MEDICATION 1 EA EA (Insulin Lispro (Humalog Kwikpen) 10 UNIT) SQ PRN (20:00)
[2018-10-14] MEDS ORDERED: inSUlin ASPART (NovoLOG) 1 UNIT/0.01 ML (CHARGE PER UNIT) SC PRN (20:15)
[2018-10-14] MEDS: lisINopril 5 MG (PRINIVIL) TABLET PO SCH (20:52)
[2018-10-14] MEDS: amLODIPine 5 MG (NORVASC) TAB PO SCH (20:52)
[2018-10-14] MEDS: NORTRIPTYLINE 25 MG (PAMELOR) CAP PO SCH (20:52)
[2018-10-14] MEDS ORDERED: NON-FORMULARY MEDICATION 1 EA EA (Amlodipine Besylate 5 MG) PO SCH (21:00)
[2018-10-15] VITALS (7 sets, daily range): BP systolic 140–179; BP diastolic 75–85
[2018-10-15] MEDS: PIPERACILLIN SODIUM/TAZOBACTAM 4.5 GM in NS (IVPB) 100 ML IV SCH ×4 (00:12→23:18)
[2018-10-15] MEDS: HYDROcodone/APAP 5 MG/325 MG (LORTAB) TAB PO PRN ×4 (03:13→18:17)
[2018-10-15] MEDS: PANTOPRAZOLE 40 MG (PROTONIX) TAB PO SCH (06:16)
[2018-10-15] MEDS: LEVOTHYROXINE 50 MCG (LEVOTHROID) TAB PO SCH (06:16)
[2018-10-15] MEDS: inSUlin ASPART (NovoLOG) 1 UNIT/0.01 ML (CHARGE PER UNIT) SC SCH ×4 (06:16→20:54)
[2018-10-15 06:53] LABS: BASOPHILS % (AUTO) 0 % (0-10); EOSINOPHILS # (AUTO) 0.1 10^3/uL (0.0-0.3); EOSINOPHILS % (AUTO) 1 % (0-10); HEMATOCRIT 28 % (35-52); HEMOGLOBIN 8.9 G/DL (11.5-16.0); LYMPHOCYTES # (AUTO) 1.3 X 10^3 (1.0-4.0); LYMPHOCYTES % (AUTO) 11 % (12-44); MEAN CORPUSCULAR HEMOGLOBIN 30 PG (25-34); MEAN CORPUSCULAR HGB CONC 32 G/DL (32-36); MEAN CORPUSCULAR VOLUME 92 FL (80-99); MEAN PLATELET VOLUME 9.2 FL (7.4-10.4); MONOCYTES # (AUTO) 0.8 X 10^3 (0.0-1.0); MONOCYTES % (AUTO) 6 % (0-12); NEUTROPHILS # (AUTO) 10.1 X 10^3 (1.8-7.8); NEUTROPHILS % (AUTO) 82 % (42-75); PLATELET COUNT 625 10^3/uL (130-400); RED BLOOD COUNT 3.01 10^6/uL (4.35-5.85); WHITE BLOOD COUNT 12.3 10^3/uL (4.3-11.0)
[2018-10-15] MEDS: NS IV 1000 ML 1,000 ML IV SCH ×2 (07:00→21:02)
[2018-10-15 07:18] LABS: ALANINE AMINOTRANSFERASE 12 U/L (0-55); ALKALINE PHOSPHATASE 90 U/L (40-136); BILIRUBIN,TOTAL 0.4 MG/DL (0.1-1.0); BUN/CREATININE RATIO 12; CALCIUM 8.5 MG/DL (8.5-10.1); CARBON DIOXIDE 23 MMOL/L (21-32); CHLORIDE 104 MMOL/L (98-107); CREATININE SERUM 0.65 MG/DL (0.60-1.30); GFR ESTIMATED > 60; GLUCOSE 167 MG/DL (70-105); POTASSIUM 3.3 MMOL/L (3.6-5.0); SODIUM 139 MMOL/L (135-145); TOTAL PROTEIN 6.4 GM/DL (6.4-8.2)
[2018-10-15] MEDS ORDERED: NON-FORMULARY MEDICATION 1 EA EA (Esomeprazole Magnesium 40 MG) PO SCH (09:00)
[2018-10-15] MEDS: RT-ALBUTEROL/IPRATROPIUM 3 ML (DUONEB) VIAL INH SCH ×3 (09:30→19:42)
--- NOTE | 2018-10-15 10:00 | NUR ---
PT REPORTS TO THIS NURSE THAT SHE HAS NO HEAT IN HOUSE EXCEPT KITCHEN STOVE. SOCIAL SERVICE CONSULT INITIATED.
--- NOTE | 2018-10-15 10:13 | Progress Note-Hospitalist ---
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 Saenz's office. She was sent over for definitive treatment for diabetic foot ulcer with infection and gangrene that was in need of some sort of amputation. He recommended vascular evaluation and would be available to do any type of surgery on the fat when Dr. Tolbert was consulted and knew the patient very well since unsuccessfully performed peripheral revascularization through stent and intervention who then was referred to [facility] who could not be successful at the intervention either so a right below the knee amputation was recommended by multiple physicians and Dr. Garcia so recommended general surgery to perform this since it was above the ankle for his podiatry specialty. Patient is a very poor historian she obviously has some sort of memory deficit versus dementia and I obtained most of the information by reviewing her home medication. At this current time patient does report pain but she has had some side effects from pain medication in the past that makes her sleep walk and become confused. I spoke with who will see her in consultation for bloody stools that she is reporting and arrange for right below the knee amputation on Thursday. Subjective/Events-last exam Patient doing well today Doesn't have any pain Spoke with Dr. Tolbert and he recommended placing back on antiplatelet agents due to her recent stent placed in the LAD August this year Ready for right below the knee amputation on Thursday We'll obtain EGD and colonoscopy on Thursday also to evaluate the source of the GI bleeding Stop anticoagulation orally and placed on DVT prophylaxis for Lovenox and she is immobile Objective Exam Vital Signs Vital Signs Date Time Temp Pulse Resp B/P (MAP) Pulse Ox O2 Delivery O2 Flow Rate FiO2 10/15/18 09:30 93 Nasal Cannula 2.00 10/15/18 08:00 97.8 97 18 157/77 (103) Capillary Refill : General Appearance: No Apparent Distress, WD/WN, Chronically ill Respiratory: Chest Non Tender, Lungs Clear, Normal Breath Sounds, No Accessory Muscle Use, No Respiratory Distress Cardiovascular: No Edema, No Gallop, No JVD, Normal Peripheral Pulses, Systolic Murmur, Irregularly Irregular Extremity: Other (gangrene right foot) Neurologic/Psychiatric: Alert, Oriented x3, No Motor/Sensory Deficits, Normal Mood/Affect Results/Procedures Lab Laboratory Tests 10/15/18 06:15 Patient resulted labs reviewed. Assessment/Plan Assessment and Plan Assess & Plan/Chief Complaint Assessment: Right acute infected diabetic ulcer of the right foot with gangrene in need of below the knee amputation due to unsuccessful intervention for vascular compromise Chronic atrial fibrillation on anticoagulation CAD w/stent placed 08/29 so must remain on antiplatelet meds Valvular heart disease with systolic murmur Hypertension Diabetes mellitus Hyperlipidemia Anemia Bloody stools consulting general surgery Hypothyroidism Dementia Plan: Gentle IV fluids Empiric IV antibiotics Lovenox DVT prophylaxis and discontinue oral anticoagulation preparation for right [id number] amputation on Thursday Endoscopy for Thursday Maintain antiplatelet agents due to recent stent placed August of this year by Dr. 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 of insulin (3) Atrial fibrillation Status: Chronic Qualifiers: Atrial fibrillation type: chronic Qualified Codes: I48.2 - Chronic atrial fibrillation (4) Hypertension Status: Chronic Qualifiers: Hypertension type: essential hypertension Qualified Codes: I10 - Essential (primary) hypertension (5) Hyperlipemia Status: Chronic Qualifiers: Hyperlipidemia type: mixed hyperlipidemia Qualified Codes: E78.2 - Mixed hyperlipidemia (6) Hypothyroidism Status: Chronic Qualifiers: Hypothyroidism type: acquired Qualified Codes: E03.9 - Hypothyroidism, unspecified (7) Anemia Status: Acute Qualifiers: Anemia type: iron deficiency Iron deficiency anemia type: chronic blood loss Qualified Codes: D50.0 - Iron deficiency anemia secondary to blood loss ( chronic) (8) Melena Status: Acute (9) COPD (chronic obstructive pulmonary disease) Status: Chronic Qualifiers: COPD type: unspecified COPD Qualified Codes: J44.9 - Chronic obstructive pulmonary disease, unspecified (10) CHF (congestive heart failure) Status: Chronic Qualifiers: Heart failure type: unspecified Heart failure chronicity: unspecified Qualified Codes: I50.9 - Heart failure, unspecified (11) Right foot ulcer Status: Acute Qualifiers: Non-pressure ulcer stage: with necrosis of bone Qualified Codes: L97.514 - Non-pressure chronic ulcer of other part of right foot with necrosis of bone (12) Presence of stent in coronary artery in patient with coronary artery disease Status: Chronic Clinical Quality Measures DVT/VTE Risk/Contraindication: Risk Factor Score Per Nursin RFS Level Per Nursing on Admit: 4+=Very High JAMEL ELMORE MEDICAL STUDENT 10/15/18 1148: Subjective Subjective/Events-last exam Pt states she has no pain in her foot currently. Surgery on her foot currently scheduled for 10/18/18 Objective Exam General Appearance: No Apparent Distress, WD/WN Respiratory: Lungs Clear, Normal Breath Sounds, No Respiratory Distress Cardiovascular: Regular Rate, Rhythm Assessment/Plan Assessment and Plan Assess & Plan/Chief Complaint Right foot ulcer 1/3 - will start pt on IV Abx 10/15 - continue Vanc and Zosyn Peripheral Arterial disease 10/14 - will obtain US or RLE to assess arterial flow 10/15 - US showed diminised arterial flow to R lower extremity due to trifurcation disease, no evidence of hemodynamically significant stenosis Gas Gangrene 3 - Start pt on IV abx 10/15 - surgery scheduled for right foot on 10/18 Anemia 10/14 - suspected to be secondary to GI bleed and anticoagulation 10/15 - will continue to moniter History of diabetes 10/14 - will start pt on sliding scale insulin 10/15 - will continue meds History of Afib 10/14 - currently stable 10/15 - currently stable DVT prophylaxis 10/14 - SCD except on RLE 10/14 - continue CHUCK NAVA DO Oct 15, 2018 10:13 JAMEL ELMORE MEDICAL STUDENT Oct 15, 2018 11:48
--- NOTE | 2018-10-15 10:22 | Progress Note ---
Subjective Time Seen by a Provider: 09:52 Subjective/Events-last exam Pt seen and examined, denies abdominal pain and has not seen any more bleeding from rectum. She states the pain in her foot is improved. Review of Systems General: No Chills, No Night Sweats Pulmonary: No Dyspnea, No Cough Cardiovascular: No: Chest Pain, Palpitations Gastrointestinal: No: Nausea, Vomiting, Diarrhea Objective Exam Vital Signs Date Time Temp Pulse Resp B/P (MAP) Pulse Ox O2 Delivery O2 Flow Rate FiO2 10/15/18 09:30 93 Nasal Cannula 2.00 10/15/18 03:10 98.8 103 20 165/84 (111) 95 Nasal Cannula 2.00 10/15/18 00:20 97.7 98 20 156/76 (102) 93 Room Air 10/14/18 20:02 85 Room Air 10/14/18 20:00 Nasal Cannula 2.00 10/14/18 19:40 99.2 104 20 147/78 (101) 91 Room Air 10/14/18 16:31 98.9 100 20 159/74 (102) 91 Room Air 10/14/18 14:11 98 Room Air 10/14/18 12:00 97.0 98 18 164/84 (110) 98 Room Air I & O 10/15/18 07:00 Intake Total 2075 ml Output Total 1300 ml Balance 775 ml Capillary Refill : General Appearance: No Apparent Distress, Chronically ill HEENT: PERRL/EOMI, Pharynx Normal Respiratory: Chest Non Tender, Lungs Clear, Normal Breath Sounds, No Accessory Muscle Use, No Respiratory Distress Cardiovascular: No Edema, Systolic Murmur, Irregularly Irregular Gastrointestinal: normal bowel sounds, non tender, soft, no organomegaly, no pulsatile mass Extremity: No Calf Tenderness, Pedal Edema (left), Other (dark area of right first toe that extendes down the medial side of the right food with blister to plantar aspect of right medial foot. multiple healing scabs to bilateral LE) Neurologic/Psychiatric: Alert, No Motor/Sensory Deficits, machine stoppage frequency checker II-XII Norm as Tested Results Lab Laboratory Tests 10/14/18 11:11: Glucometer 217H 10/14/18 16:31: Glucometer 166H 10/14/18 20:50: Glucometer 255H 10/15/18 06:08: Glucometer 192H 10/15/18 06:15: White Blood Count 12.3H, Red Blood Count 3.01L, Hemoglobin 8.9L, Hematocrit 28L , Mean Corpuscular Volume 92, Mean Corpuscular Hemoglobin 30, Mean Corpuscular Hemoglobin Concent 32, Red Cell Distribution Width 15.0H, Platelet Count 625H, Mean Platelet Volume 9.2, Neutrophils (%) (Auto) 82H, Lymphocytes (%) (Auto) 11L , Monocytes (%) (Auto) 6, Eosinophils (%) (Auto) 1, Basophils (%) (Auto) 0, Neutrophils # (Auto) 10.1H, Lymphocytes # (Auto) 1.3, Monocytes # (Auto) 0.8, Eosinophils # (Auto) 0.1, Basophils # (Auto) 0.0, Sodium Level 139, Potassium Level 3.3L, Chloride Level 104, Carbon Dioxide Level 23, Anion Gap 12, Blood Urea Nitrogen 8, Creatinine 0.65, Estimat Glomerular Filtration Rate > 60, BUN/ Creatinine Ratio 12, Glucose Level 167H, Calcium Level 8.5, Corrected Calcium 9.3, Total Bilirubin 0.4, Aspartate Amino Transf (AST/SGOT) 18, Alanine Aminotransferase (ALT/SGPT) 12, Alkaline Phosphatase 90, Total Protein 6.4, Albumin 3.0L Assessment/Plan Assessment/Plan Assessment/Plan Anemia GI Bleed Wet Gangrene right foot CAD, DM, HTN Plan is to D/C Eliquis today and plan to do EGD/Colonscopy and Right BKA on Thursday. Unfortunately she will need to stay on ASA and Plavix because of the stent in her LAD. She will bleed more than normal from her BKA because we must keep her on some of the anti-coagulation. Will get consent today. Prep will be sent to pharmacy to be entered into computer. I have already discussed with the pt the upper and lower endoscopy and went over risks and complications; not limited to pain, bleeding, infection and possible intestinal rupture. We also discussed the BKA a little bit; most of the same risks, plus scar, damage to vessels and need for further procedure. Clinical Quality Measures DVT/VTE Risk/Contraindication: Risk Factor Score Per Nursin RFS Level Per Nursing on Admit: 4+=Very High KIKE JACOBO DO Oct 15, 2018 10:22
[2018-10-15] MEDS ORDERED: VANCOMYCIN 1250 MG/NS 250 ML IVPB IV SCH ×2 (10:30)
--- NOTE | 2018-10-15 11:00 | NUR ---
CONSENT FOR THURSDAY OR DONE. SURGERY SCHEDULED.
[2018-10-15] MEDS: ENOXAPARIN 40 MG/0.4 ML (LOVENOX) SYR SC SCH (11:55)
[2018-10-15] MEDS: CLOPIDOGREL 75 MG (PLAVIX) TABLET PO SCH (11:56)
--- NOTE | 2018-10-15 12:00 | NUR ---
HYDROCODONE PO FOR FOOT PAIN.
[2018-10-15] MEDS ORDERED: KCL 10 MEQ TAB (MICRO K) PO NR (12:30)
--- NOTE | 2018-10-15 13:38 | Cardiology Progress Note ---
Subjective Date Seen by Provider: Oct 15, 2018 Time Seen by Provider: 13:36 Subjective/Events-last exam patient is laying down in bed, still having pain in her toe. No chest pain Review of Systems General: No Chills, No Night Sweats, No Fatigue, No Malaise, No Appetite, No Other HEENT: No Head Aches, No Visual Changes, No Eye Pain, No Ear Pain, No Dysphasia , No Sinus Congestion, No Post Nasal Drip, No Sore Throat, No Other Pulmonary: Dyspnea; No Cough, No Pleuritic Chest Pain, No Other Cardiovascular: No: Chest Pain, Palpitations, Orthopnea, Paroxysmal Noc. Dyspnea, Edema, Lt Headedness, Other Objective-Cardiology Exam Last Set of Vital Signs Vital Signs 10/15/18 10/15/18 08:00 09:30 Temp 97.8 Pulse 97 Resp 18 B/P (MAP) 157/77 (103) Pulse Ox 93 O2 Delivery Nasal Cannula O2 Flow Rate 2.00 Capillary Refill : I&O Intake and Output 10/15/18 00:00 Intake Total 1325 ml Output Total 200 ml Balance 1125 ml Intake Oral 710 ml IV Total 615 ml Output Urine Total 200 ml Daily Weight Change No General: Alert, Oriented X3, Cooperative HEENT: Atraumatic, PERRLA Neck: Supple, No JVD, No Thyromegaly Lungs: Clear to Auscultation, Normal Air Movement Heart: Regular Rate, Normal S1, Normal S2, No Murmurs Abdomen: Normal Bowel Sounds, Soft, No Tenderness, No Hepatosplenomegaly, No Masses Extremities: No Clubbing, No Cyanosis, No Edema, Normal Pulses, No Tenderness/ Swelling Skin: No Rashes, No Breakdown, No Significant Lesion Neuro: Normal Gait, Normal Speech, Strength at 5/5 X4 Ext, Normal Tone, Sensation Intact Psych/Mental Status: Mental Status NL, Mood NL Results Lab Laboratory Tests 10/15/18 06:15 A/P-Cardiology Admission Diagnosis Gangrene of toe Peripheral arterial disease Coronary artery disease Hypertension Assessment/Plan Nonhealing foot ulcer on the first great toe of the right leg for the past 10- 11 months. Severe peripheral arterial disease, underwent unsuccessful intervention to the anterior tibial artery, had atherectomy and balloon angioplasty to the right peroneal and posterior tibial artery, still progressed into full necrosis and gangrene of her right toe, having significant pain. scheduled for right BKA on Thursday Coronary artery disease, status post drug-eluting stent deployment using 2 stents to the LAD Promus Premier 3.012 mm and 3.58 mm, done by Dr. Clements. Patient is on aspirin and Eliquis and Plavix. Continue to monitor Aortic stenosis murmur, no significant gradient across the aortic valve during coronary angiogram Patient is maintained on Eliquis, probably had atrial fibrillation, currently in sinus rhythm with frequent APCs. Not sure about her history. I will try to obtain copy of her records. Hypertension, maintained on multiple medication, monitor blood pressure Hyperlipidemia, maintained on Crestor and Zetia, continue to monitor lipids Moderate bilateral carotid stenosis, diffuse atherosclerotic plaques will need to have workup done in the future regarding her carotids Diabetes mellitus, followed and managed by primary care physician History of heart disease. Questionable GI bleed on aggressive anticoagulation. I will send her to the emergency room for evaluation. Okay for stopping Eliquis for 48 hours prior to the procedure, I recommend maintaining the patient on aspirin and Plavix due to the recent LAD stent deployment. Risk of bleeding is higher. Overall patient is considered at intermediate to high risk for perioperative cardiovascular complications, decision regarding the surgery, risks versus benefits is deferred to the surgeon Clinical Quality Measures DVT/VTE Risk/Contraindication: Risk Factor Score Per Nursin RFS Level Per Nursing on Admit: 4+=Very High GURWINDER CHINCHILLA MD Oct 15, 2018 13:38
--- NOTE | 2018-10-15 14:25 | NUR ---
PRE-OP NASAL MRSA SWAB DONE.
[2018-10-15] MEDS: lisINopril 5 MG (PRINIVIL) TABLET PO SCH (20:14)
[2018-10-15] MEDS: NORTRIPTYLINE 25 MG (PAMELOR) CAP PO SCH (20:14)
[2018-10-15] MEDS: amLODIPine 5 MG (NORVASC) TAB PO SCH (20:14)
[2018-10-15] MEDS: fentaNYL INJECTION 100 MCG/2 ML AMP IVP PRN (20:19)
[2018-10-15] MEDS: ALPRAZolam 0.25 MG (XANAX) TAB PO PRN (20:54)
[2018-10-16 04:17] VITALS: BP 134/76
[2018-10-16] MEDS: LEVOTHYROXINE 50 MCG (LEVOTHROID) TAB PO SCH (05:36)
[2018-10-16] MEDS: PANTOPRAZOLE 40 MG (PROTONIX) TAB PO SCH (05:36)
[2018-10-16] MEDS: inSUlin ASPART (NovoLOG) 1 UNIT/0.01 ML (CHARGE PER UNIT) SC SCH ×4 (05:36→20:33)
[2018-10-16] MEDS: KCL 10 MEQ TAB (MICRO K) PO SCH (05:36)
[2018-10-16] MEDS: RT-ALBUTEROL/IPRATROPIUM 3 ML (DUONEB) VIAL INH SCH ×3 (07:07→20:04)
[2018-10-16 08:00] VITALS: BP 157/71
[2018-10-16] MEDS ORDERED: TROUGH ORDER-PHARMACY XX NR (09:30)
[2018-10-16] MEDS: CLOPIDOGREL 75 MG (PLAVIX) TABLET PO SCH (09:34)
[2018-10-16] MEDS: HYDROcodone/APAP 5 MG/325 MG (LORTAB) TAB PO PRN ×2 (09:35→18:54)
[2018-10-16] MEDS: NS IV 1000 ML 1,000 ML IV SCH (09:37)
[2018-10-16] MEDS: PIPERACILLIN SODIUM/TAZOBACTAM 4.5 GM in NS (IVPB) 100 ML IV SCH ×3 (09:38→23:25)
[2018-10-16] MEDS: ASPIRIN 81 MG CHEW (CHILDREN'S ASA) PO SCH (10:29)
[2018-10-16] MEDS: ENOXAPARIN 40 MG/0.4 ML (LOVENOX) SYR SC SCH (10:29)
[2018-10-16] MEDS: VANCOMYCIN 1,750 MG/NS 500 ML IVPB IV SCH ×2 (10:29)
--- NOTE | 2018-10-16 10:47 | Cardiology Progress Note ---
Subjective Date Seen by Provider: Oct 16, 2018 Time Seen by Provider: 10:45 Subjective/Events-last exam patient is in bed, still having pain in her foot. Generalized weakness Review of Systems General: No Chills, No Night Sweats, No Fatigue, No Malaise, No Appetite, No Other HEENT: No Head Aches, No Visual Changes, No Eye Pain, No Ear Pain, No Dysphasia , No Sinus Congestion, No Post Nasal Drip, No Sore Throat, No Other Pulmonary: No Dyspnea, No Cough, No Pleuritic Chest Pain, No Other Cardiovascular: No: Chest Pain, Palpitations, Orthopnea, Paroxysmal Noc. Dyspnea, Edema, Lt Headedness, Other Objective-Cardiology Exam Last Set of Vital Signs Vital Signs 10/16/18 08:00 Temp 97.6 Pulse 107 Resp 18 B/P (MAP) 157/71 (99) Pulse Ox 92 O2 Delivery Nasal Cannula O2 Flow Rate 2.00 Capillary Refill : Less Than 3 Seconds I&O Intake and Output 10/16/18 00:00 Intake Total 3302.5 ml Output Total 2250 ml Balance 1052.5 ml Intake Oral 1840 ml IV Total 1462.5 ml Output Urine Total 2250 ml General: Alert, Oriented X3, Cooperative HEENT: Atraumatic, PERRLA Neck: Supple, No JVD, No Thyromegaly Lungs: Clear to Auscultation, Normal Air Movement Heart: Regular Rate, Normal S1, Normal S2, Other (systolic murmur at the left sternal border) Abdomen: Normal Bowel Sounds, Soft, No Tenderness, No Hepatosplenomegaly, No Masses Extremities: Other (gangrenous foot, absent pulse) Skin: Other (gangrenous foot and wet gangrene on the heel) Neuro: Normal Speech, Normal Tone, Sensation Intact Psych/Mental Status: Mental Status NL, Mood NL Results Lab Laboratory Tests Test 10/15/18 11:23 10/15/18 15:53 10/15/18 20:48 10/16/18 05:35 Range/Units Glucometer 222 H 92 202 H 184 H 70-110 MG/DL Test 10/16/18 09:25 Range/Units Vancomycin Level Trough 8.2 L 10.0-20.0 UG/ML A/P-Cardiology Admission Diagnosis Gangrene of toe Peripheral arterial disease Coronary artery disease Hypertension Assessment/Plan Nonhealing foot ulcer on the first great toe of the right leg for the past 10- 11 months. Severe peripheral arterial disease, underwent unsuccessful intervention to the anterior tibial artery, had atherectomy and balloon angioplasty to the right peroneal and posterior tibial artery, still progressed into full necrosis and gangrene of her right toe, having significant pain. scheduled for right BKA on Thursday Coronary artery disease, status post drug-eluting stent deployment using 2 stents to the LAD Promus Premier 3.012 mm and 3.58 mm, done by Dr. Clements. Patient is on aspirin and Eliquis and Plavix. Continue to monitor Aortic stenosis murmur, no significant gradient across the aortic valve during coronary angiogram Patient is maintained on Eliquis, probably had atrial fibrillation, currently in sinus rhythm with frequent APCs. Not sure about her history. I will try to obtain copy of her records. Hypertension, maintained on multiple medication, monitor blood pressure Hyperlipidemia, maintained on Crestor and Zetia, continue to monitor lipids Moderate bilateral carotid stenosis, diffuse atherosclerotic plaques will need to have workup done in the future regarding her carotids Diabetes mellitus, followed and managed by primary care physician History of heart disease. Questionable GI bleed on aggressive anticoagulation. I will send her to the emergency room for evaluation. Okay for stopping Eliquis for 48 hours prior to the procedure, I recommend maintaining the patient on aspirin and Plavix due to the recent LAD stent deployment. Risk of bleeding is higher. Overall patient is considered at intermediate to high risk for perioperative cardiovascular complications, decision regarding the surgery, risks versus benefits is deferred to the surgeon Clinical Quality Measures DVT/VTE Risk/Contraindication: Risk Factor Score Per Nursin RFS Level Per Nursing on Admit: 4+=Very High GURWINDER CHINCHILLA MD Oct 16, 2018 10:47
--- NOTE | 2018-10-16 11:41 | Progress Note-Hospitalist ---
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 Saenz's office. She was sent over for definitive treatment for diabetic foot ulcer with infection and gangrene that was in need of some sort of amputation. He recommended vascular evaluation and would be available to do any type of surgery on the fat when Dr. Tolbert was consulted and knew the patient very well since unsuccessfully performed peripheral revascularization through stent and intervention who then was referred to [facility] who could not be successful at the intervention either so a right below the knee amputation was recommended by multiple physicians and Dr. Garcia so recommended general surgery to perform this since it was above the ankle for his podiatry specialty. Patient is a very poor historian she obviously has some sort of memory deficit versus dementia and I obtained most of the information by reviewing her home medication. At this current time patient does report pain but she has had some side effects from pain medication in the past that makes her sleep walk and become confused. I spoke with who will see her in consultation for bloody stools that she is reporting and arrange for right below the knee amputation on Thursday. Subjective/Events-last exam Patient doing well Family at the bedside today Sees a nurse practitioner who works at [facility] Tick out of IV accidentally Patient appears to have very poor recall but appears to be baseline Iron level X so will initiate iron infusions Set for colon prep tomorrow for EGD and colonoscopy and right below the knee amputation Denies any pain except for the right gangrenous foot Review of Systems General: Fatigue Musculoskeletal: leg pain Neurological: Confusion Objective Exam Vital Signs Vital Signs Date Time Temp Pulse Resp B/P (MAP) Pulse Ox O2 Delivery O2 Flow Rate FiO2 10/16/18 08:00 97.6 107 18 157/71 (99) 92 Nasal Cannula 2.00 Capillary Refill : Less Than 3 Seconds General Appearance: No Apparent Distress, WD/WN, Chronically ill Respiratory: Chest Non Tender, Lungs Clear, Normal Breath Sounds, No Accessory Muscle Use, No Respiratory Distress Cardiovascular: No Edema, No Gallop, No JVD, Normal Peripheral Pulses, Systolic Murmur, Irregularly Irregular Neurologic/Psychiatric: Alert, No Motor/Sensory Deficits, Normal Mood/Affect, Disoriented Results/Procedures Lab Patient resulted labs reviewed. Assessment/Plan Assessment and Plan Assess & Plan/Chief Complaint Assessment: Right acute infected diabetic ulcer of the right foot with gangrene in need of below the knee amputation due to unsuccessful intervention for vascular compromise Chronic atrial fibrillation on anticoagulation holding for surgery CAD w/stent placed 08/29 so must remain on antiplatelet meds Valvular heart disease with systolic murmur Hypertension Diabetes mellitus Hyperlipidemia Anemia iron def Bloody stools consulting general surgery Hypothyroidism Dementia Plan: Gentle IV fluids Empiric IV antibiotics Lovenox DVT prophylaxis and discontinue oral anticoagulation preparation for right cocov-qcq-ando amputation on Thursday Endoscopy for Thursday Maintain antiplatelet agents due to recent stent placed August of this year by Dr. Didi Rendon infusion Diagnosis/Problems Diagnosis/Problems (1) Gangrene of right foot Status: Acute (2) Diabetes mellitus Status: Chronic Qualifiers: Diabetes mellitus type: type 2 Diabetes mellitus usp insulin use: with usp use Diabetes mellitus complication status: with circulatory complication Diabetes mellitus complication detail: with other circulatory complications Qualified Codes: E11.59 - Type 2 diabetes mellitus with other circulatory complications; Z79.4 - alf (current) use of insulin (3) Atrial fibrillation Status: Chronic Qualifiers: Atrial fibrillation type: chronic Qualified Codes: I48.2 - Chronic atrial fibrillation (4) Hypertension Status: Chronic Qualifiers: Hypertension type: essential hypertension Qualified Codes: I10 - Essential (primary) hypertension (5) Hyperlipemia Status: Chronic Qualifiers: Hyperlipidemia type: mixed hyperlipidemia Qualified Codes: E78.2 - Mixed hyperlipidemia (6) Hypothyroidism Status: Chronic Qualifiers: Hypothyroidism type: acquired Qualified Codes: E03.9 - Hypothyroidism, unspecified (7) Anemia Status: Acute Qualifiers: Anemia type: iron deficiency Iron deficiency anemia type: chronic blood loss Qualified Codes: D50.0 - Iron deficiency anemia secondary to blood loss ( chronic) (8) Melena Status: Acute (9) COPD (chronic obstructive pulmonary disease) Status: Chronic Qualifiers: COPD type: unspecified COPD Qualified Codes: J44.9 - Chronic obstructive pulmonary disease, unspecified (10) CHF (congestive heart failure) Status: Chronic Qualifiers: Heart failure type: unspecified Heart failure chronicity: unspecified Qualified Codes: I50.9 - Heart failure, unspecified (11) Right foot ulcer Status: Acute Qualifiers: Non-pressure ulcer stage: with necrosis of bone Qualified Codes: L97.514 - Non-pressure chronic ulcer of other part of right foot with necrosis of bone (12) Presence of stent in coronary artery in patient with coronary artery disease Status: Chronic Clinical Quality Measures DVT/VTE Risk/Contraindication: Risk Factor Score Per Nursin RFS Level Per Nursing on Admit: 4+=Very High CHUCK NAVA DO Oct 16, 2018 11:41
[2018-10-16 12:00] VITALS: BP 154/77
[2018-10-16] MEDS: ALPRAZolam 0.25 MG (XANAX) TAB PO PRN ×2 (13:04→20:33)
[2018-10-16] MEDS: IRON SUCROSE 200 MG/10 ML (VENOFER) VIAL IV SCH (13:16)
--- NOTE | 2018-10-16 13:53 | Progress Note ---
Subjective Date Seen by a Provider: Oct 16, 2018 Time Seen by a Provider: 11:11 Subjective/Events-last exam patient with right foot pain. she states she is doing about the same as yesterday. hgb slight drop 9.5 to 8.9. Denies n/v fever sweats chills shortness of breath or chest pain. Objective Exam Vital Signs Date Time Temp Pulse Resp B/P (MAP) Pulse Ox O2 Delivery O2 Flow Rate FiO2 10/16/18 08:00 97.6 107 18 157/71 (99) 92 Nasal Cannula 2.00 10/16/18 07:07 94 Nasal Cannula 6.00 10/16/18 04:17 99.4 106 20 134/76 (95) 92 Nasal Cannula 2.00 10/15/18 23:42 99.1 91 16 140/81 (100) 92 Nasal Cannula 2.00 10/15/18 20:15 Nasal Cannula 0.50 10/15/18 20:00 99.0 105 18 157/75 (102) 93 Nasal Cannula 2.00 10/15/18 19:42 95 Nasal Cannula 2.00 10/15/18 16:00 98.9 96 18 179/85 (116) 96 Nasal Cannula 2.00 10/15/18 16:00 94 Nasal Cannula 2.00 I & O 10/16/18 07:00 Intake Total 2802.5 ml Output Total 1450 ml Balance 1352.5 ml Capillary Refill : Less Than 3 Seconds General Appearance: No Apparent Distress, WD/WN, Chronically ill HEENT: PERRL/EOMI, Pharynx Normal Respiratory: Chest Non Tender, Lungs Clear, Normal Breath Sounds, No Accessory Muscle Use, No Respiratory Distress Cardiovascular: Irregularly Irregular Gastrointestinal: normal bowel sounds, non tender, soft, no organomegaly, no pulsatile mass Extremity: Other (gangrene right foot) Neurologic/Psychiatric: Alert, No Motor/Sensory Deficits, Normal Mood/Affect, Disoriented Skin: Warm/Dry (gangrene change to right foot) Results Lab Laboratory Tests 10/15/18 15:53: Glucometer 92 10/15/18 20:48: Glucometer 202H 10/16/18 05:35: Glucometer 184H 10/16/18 09:25: Vancomycin Level Trough 8.2L 10/16/18 11:14: Glucometer 195H Assessment/Plan Assessment/Plan Assessment/Plan Anemia GI Bleed Wet Gangrene right foot CAD, DM, HTN Plan is to D/C Wanda and plan to do EGD/Colonscopy and Right BKA on Thursday. She will need to stay on ASA and Plavix because of the stent in her LAD. She will bleed more than normal from her BKA because we must keep her on some of the anti-coagulation. No new changes No family at bedside. Clinical Quality Measures DVT/VTE Risk/Contraindication: Risk Factor Score Per Nursin RFS Level Per Nursing on Admit: 4+=Very High MARCE PADRON DO Oct 16, 2018 13:52
[2018-10-16 15:35] VITALS: BP 138/80
[2018-10-16] MEDS: RT-ALBUTEROL SULF 2.5 MG/3 ML PRE-MIX VIAL IH PRN (19:10)
[2018-10-16 19:21] VITALS: BP 151/87
[2018-10-16] MEDS: NORTRIPTYLINE 25 MG (PAMELOR) CAP PO SCH (20:33)
[2018-10-16] MEDS: lisINopril 5 MG (PRINIVIL) TABLET PO SCH (20:33)
[2018-10-16] MEDS: amLODIPine 5 MG (NORVASC) TAB PO SCH (20:33)
[2018-10-16 23:30] VITALS: BP 149/80
[2018-10-17] VITALS (19 sets, daily range): BP systolic 100–159; BP diastolic 46–96
[2018-10-17] MEDS: RT-ALBUTEROL SULF 2.5 MG/3 ML PRE-MIX VIAL IH PRN (04:36)
[2018-10-17 05:31] LABS: ABG BASE EXCESS 1.9 MMOL/L (-2.5-2.5); ABG OXYGEN SATURATION 96 % (94-100); ABG PCO2 39 MMHG (35-45); ABG PH 7.44 (7.37-7.43); ABG PO2 66 MMHG (79-93); ABG TCO2 27.1 MMOL/L (21.0-31.0)
[2018-10-17 05:40] LABS: ALLENS TEST POSITIVE; INSPIRED O2 10; PATIENT TEMP 97.6; VENTILATOR YES
--- NOTE | 2018-10-17 05:59 | Pulmonary Consultation ---
History of Present Illness History of Present Illness Date of Consultation 10/17/18 05:54 Time Seen by Provider: 06:03 Date of Admission Reason for Visit: right foot gangrene Allergies and Home Medications Allergies Coded Allergies: codeine (Verified Allergy, Unknown, 10/16/18) Home Medications Acetaminophen 500 Mg Tablet, 1,000 MG PO Q6H PRN for PAIN-MILD, (Reported) Albuterol Sulfate 1 Puff Puff, 2 PUFF IH Q4H PRN for SHORTNESS OF BREATH, ( Reported) 1 PUFF = 90 MCG Amlodipine Besylate 5 Mg Tablet, 5 MG PO HS, (Reported) Apixaban 5 Mg Tablet, 5 MG PO BID, (Reported) Ascorbate Calcium 500 Mg Tablet, 500 MG PO DAILY, (Reported) Atorvastatin Calcium 80 Mg Tablet, 80 MG PO HS, (Reported) Cholecalciferol (Vitamin D3) 2,000 Unit Capsule, 2,000 UNIT PO DAILY, (Reported) Clopidogrel Bisulfate 75 Mg Tablet, 75 MG PO DAILY, (Reported) Diltiazem HCl 180 Mg Cap.er.24h, 180 MG PO DAILY, (Reported) LAST FILLED #90 06-11-18 Esomeprazole Magnesium 40 Mg Capsule.dr, 40 MG PO DAILY, (Reported) Ferrous Sulfate 325 Mg Tablet, 325 MG PO DAILY, (Reported) Ibuprofen 200 Mg Tablet, 200 MG PO Q4H PRN for PAIN-MILD, (Reported) Insulin Lispro 100 Unit/1 Ml Insuln.pen, 10 UNIT SQ TIDAC PRN for BS > 150, ( Reported) Levothyroxine Sodium 50 Mcg Tablet, 50 MCG PO DAILY, (Reported) Lisinopril 5 Mg Tablet, 5 MG PO HS, (Reported) Metformin HCl 500 Mg Tab.er.24h, 1,000 MG PO BID, (Reported) TAKES 2 (500MG) TABLETS Nortriptyline HCl 25 Mg Capsule, 25 MG PO HS, (Reported) LAST FILLED #90 06-11-18 [place]-3 Fatty Acids/Fish Oil 1 Each Capsule, 1 CAP PO DAILY, (Reported) Pyridoxine HCl 100 Mg Tablet, 100 MG PO DAILY, (Reported) Vitamin E (Dl,Tocopheryl Acet) 200 Unit Capsule, 200 UNIT PO DAILY, (Reported) Past Gkwhntp-Wmmatf-Qeuhon Hx Past Med/Social Hx: Reviewed Nursing Past Med/Soc Hx, Reviewed and Corrections made Patient Social History Alcohol Use: Denies Use Recreational Drug Use: No Smoking Status: Former Smoker Type Used: Cigarettes Former Smoker, Quit: Aug 18, 1962 Recent Foreign Travel: No Contact w/Someone Who Travel: No Immunizations Up To Date Date of Influenza Vaccine: Jun 28, 2018 Past Medical History Surgeries: Yes Hysterectomy, Orthopedic Respiratory: No Cardiac: Yes Atrial Fibrillation, Coronary Artery Disease, High Cholesterol, Hypertension, Valvular Heart Disease Neurological: Yes Dementia, Neuropathy Genitourinary: No Bladder Infection Gastrointestinal: No Chronic Constipation Musculoskeletal: Yes Arthritis Endocrine: Yes Diabetes, Insulin dep, Hypothyroidsim HEENT: Yes (BLOODY NOSE) 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 0.0oz. 76.728813xc; 25.1 BMI Method:Stated Exam Exam Vital Signs Date Time Temp Pulse Resp B/P (MAP) Pulse Ox O2 Delivery O2 Flow Rate FiO2 10/17/18 05:10 97.3 96 24 146/89 (108) 91 High Flow N/C 10.00 10/17/18 05:04 97 10/17/18 04:34 86 Nasal Cannula 6.00 10/16/18 23:30 97.1 92 18 149/80 (103) 94 Nasal Cannula 6.00 10/16/18 20:06 89 Nasal Cannula 4.00 10/16/18 20:00 Nasal Cannula 4.00 10/16/18 19:21 98.2 112 18 151/87 (108) 91 Nasal Cannula 4.00 10/16/18 19:10 87 Nasal Cannula 4.00 10/16/18 15:35 96.7 94 14 138/80 (99) 90 Nasal Cannula 4.00 10/16/18 15:26 90 Nasal Cannula 4.00 10/16/18 12:00 97.2 93 20 154/77 (102) Nasal Cannula 2.00 10/16/18 08:00 97.6 107 18 157/71 (99) 92 Nasal Cannula 2.00 10/16/18 08:00 Nasal Cannula 4.00 10/16/18 07:07 94 Nasal Cannula 6.00 I & O 10/17/18 06:59 Intake Total 3067.5 ml Output Total 1000 ml Balance 2067.5 ml Height & Weight Height: 5'8.00" Weight: 169lbs. 0.0oz. 76.165761dc; 25.1 BMI Method:Stated General Appearance: No Apparent Distress, WD/WN, Chronically ill HEENT: PERRL/EOMI, Pharynx Normal Respiratory: Chest Non Tender, Lungs Clear, Normal Breath Sounds, No Accessory Muscle Use, No Respiratory Distress Cardiovascular: Irregularly Irregular Gastrointestinal: normal bowel sounds, non tender, soft, no organomegaly, no pulsatile mass Extremity: Other (gangrene right foot) Neurologic/Psychiatric: Alert, No Motor/Sensory Deficits, Normal Mood/Affect, Disoriented Skin: Warm/Dry (gangrene change to right foot) Results Lab Laboratory Tests 10/15/18 06:15 Assessment/Plan Assessment/Plan Acute Respiratory distress -Transfer to ICU -GIve 40mg of Lasix x1 -Give 125solumedrol X 1 -Check ABG, CXR -Check troponin, EKG COPDAE -increase SVN to Q6 -add advair -solumedrol 125mg X 1 Moderate to severe aortic stenosis -Cardiology following Pulmonary HTN group II Afib - -Pt has been anticoagulated -Cardiology following IDDM LILLIAN GONZALES DO Oct 17, 2018 05:59
[2018-10-17] MEDS ORDERED: FUROSEMIDE 40 MG/4 ML INJ (LASIX) IVP ONE (06:00)
[2018-10-17] MEDS ORDERED: methylPREDNISolone 40 MG/ML (Solu-MEDROL) VIAL IV ONE (06:00)
--- NOTE | 2018-10-17 06:05 | NUR ---
At 0420 this RN entered pt room to take 4am VS. Pt was slumped down in bed so this RN got assistance to help boost pt in bed. VS taken were 98.1 91 16 159/80 83% on 6L NC. This RN called RT at 0428 to attempt breathing treatment as pt did sound wheezy. RT gave breathing tx and started high flow NC with 10L o2. Pt O2 sats continue to stay at 91%. Dr. Selby called by this RN at [phone] to report this information, this RN received TORB to send pt to ICU and consult Dr. Cartwright. [facility] called at 0445 to get a bed for pt. 0500 pt brought up to ICU via bed/cart and report given to ICU nurse. ICU nurse to consult with Dr. Cartwright as he is on the floor already. 0559 this RN attempted to call pt daughter Teresa and left a voicemail with number to call back.
--- NOTE | 2018-10-17 06:28 | NUR ---
This RN received call back from pt daughter Teresa who was informed of pt condition upon being transferred up to ICU.
[2018-10-17 06:31] LABS: BASOPHILS % (AUTO) 0 % (0-10); EOSINOPHILS # (AUTO) 0.1 10^3/uL (0.0-0.3); EOSINOPHILS % (AUTO) 1 % (0-10); HEMATOCRIT 27 % (35-52); HEMOGLOBIN 8.5 G/DL (11.5-16.0); LYMPHOCYTES # (AUTO) 1.4 X 10^3 (1.0-4.0); LYMPHOCYTES % (AUTO) 10 % (12-44); MEAN CORPUSCULAR HEMOGLOBIN 30 PG (25-34); MEAN CORPUSCULAR HGB CONC 32 G/DL (32-36); MEAN CORPUSCULAR VOLUME 93 FL (80-99); MEAN PLATELET VOLUME 9.2 FL (7.4-10.4); MONOCYTES # (AUTO) 1.2 X 10^3 (0.0-1.0); MONOCYTES % (AUTO) 9 % (0-12); NEUTROPHILS # (AUTO) 11.5 X 10^3 (1.8-7.8); NEUTROPHILS % (AUTO) 81 % (42-75); PLATELET COUNT 607 10^3/uL (130-400); RED BLOOD COUNT 2.87 10^6/uL (4.35-5.85); WHITE BLOOD COUNT 14.1 10^3/uL (4.3-11.0)
[2018-10-17] MEDS ORDERED: methylPREDNISolone 40 MG/ML (Solu-MEDROL) VIAL ONE (06:33)
[2018-10-17] MEDS ORDERED: FUROSEMIDE 40 MG/4 ML INJ (LASIX) ONE (06:33)
[2018-10-17] MEDS ORDERED: methylPREDNISolone 125 MG (Solu-MEDROL) VIAL ONE (06:39)
[2018-10-17] MEDS: LEVOTHYROXINE 50 MCG (LEVOTHROID) TAB PO SCH (06:43)
[2018-10-17] MEDS: KCL 10 MEQ TAB (MICRO K) PO SCH (06:43)
[2018-10-17] MEDS: inSUlin ASPART (NovoLOG) 1 UNIT/0.01 ML (CHARGE PER UNIT) SC SCH ×4 (06:43→21:38)
[2018-10-17] MEDS: PANTOPRAZOLE 40 MG (PROTONIX) TAB PO SCH (06:44)
[2018-10-17 06:56] LABS: ALANINE AMINOTRANSFERASE 9 U/L (0-55); ALKALINE PHOSPHATASE 116 U/L (40-136); BILIRUBIN,TOTAL 0.3 MG/DL (0.1-1.0); BUN/CREATININE RATIO 10; CALCIUM 8.6 MG/DL (8.5-10.1); CARBON DIOXIDE 22 MMOL/L (21-32); CHLORIDE 102 MMOL/L (98-107); CREATININE SERUM 0.69 MG/DL (0.60-1.30); GFR ESTIMATED > 60; GLUCOSE 166 MG/DL (70-105); MAGNESIUM 1.2 MG/DL (1.8-2.4); PHOSPHORUS 2.9 MG/DL (2.3-4.7); POTASSIUM 3.4 MMOL/L (3.6-5.0); SODIUM 138 MMOL/L (135-145); TOTAL PROTEIN 6.3 GM/DL (6.4-8.2)
[2018-10-17] MEDS ORDERED: RT-ALBUTEROL/IPRATROPIUM 3 ML (DUONEB) VIAL INH PRN (07:30)
[2018-10-17] MEDS ORDERED: RT-ADVAIR HFA 115/21 MCG PER PUFF IH SCH (08:00)
[2018-10-17] MEDS: CLOPIDOGREL 75 MG (PLAVIX) TABLET PO SCH (08:22)
[2018-10-17] MEDS: PIPERACILLIN SODIUM/TAZOBACTAM 4.5 GM in NS (IVPB) 100 ML IV SCH ×2 (08:22→17:17)
[2018-10-17] MEDS: ASPIRIN 81 MG CHEW (CHILDREN'S ASA) PO SCH (08:23)
[2018-10-17 08:24] LABS: BILIRUBIN,URINE NEGATIVE (NEGATIVE); CLARITY,URINE CLEAR; COLOR,URINE YELLOW; GLUCOSE, URINE (UA) NEGATIVE (NEGATIVE); KETONES,URINE NEGATIVE (NEGATIVE); LEUKOCYTE ESTERASE ,URINE NEGATIVE (NEGATIVE); NITRITE,URINE NEGATIVE (NEGATIVE); PH,URINE 5 (5-9); PROTEIN,URINE 2+ (NEGATIVE); UROBILINOGEN,URINE NORMAL (NORMAL)
[2018-10-17 08:30] LABS: BACTERIA,URINE MODERATE /HPF; WBC,URINE RARE /HPF
[2018-10-17] MEDS: MAGNESIUM 1 GM/100 ML IVPB 100 ML IV SCH ×4 (08:40→11:37)
[2018-10-17] MEDS: POTASSIUM CL 10MEQ/50ML IVPB 50 ML IV SCH ×2 (08:40→09:57)
--- NOTE | 2018-10-17 08:42 | Cardiology Progress Note ---
Subjective Date Seen by Provider: Oct 17, 2018 Time Seen by Provider: 08:37 Subjective/Events-last exam patient is in bed, transfer to intensive care unit secondary to acute respiratory failure and shortness of breath, still having some dyspnea, denied any chest pain Review of Systems General: No Chills, No Night Sweats; Fatigue; No Malaise, No Appetite, No Other HEENT: No Head Aches, No Visual Changes, No Eye Pain, No Ear Pain, No Dysphasia , No Sinus Congestion, No Post Nasal Drip, No Sore Throat, No Other Pulmonary: Dyspnea; No Cough, No Pleuritic Chest Pain, No Other Cardiovascular: Edema; No: Chest Pain, Palpitations, Orthopnea, Paroxysmal Noc. Dyspnea, Lt Headedness, Other Objective-Cardiology Exam Last Set of Vital Signs Vital Signs 10/17/18 05:10 Temp 97.3 Pulse 96 Resp 24 B/P (MAP) 146/89 (108) Pulse Ox 91 O2 Delivery High Flow N/C O2 Flow Rate 10.00 Capillary Refill : Less Than 3 Seconds I&O Intake and Output 10/17/18 00:00 Intake Total 3317.5 ml Output Total 1300 ml Balance 2017.5 ml Intake Oral 1700 ml IV Total 1617.5 ml Output Urine Total 1300 ml General: Alert, Oriented X3, Cooperative, Moderate Distress HEENT: Atraumatic, PERRLA Neck: Supple, No Thyromegaly Lungs: Normal Air Movement, Other (bilateral wheezing, rhonchi) Heart: Regular Rate, Normal S1, Normal S2, Other (systolic murmur at the left sternal border) Abdomen: Normal Bowel Sounds, Soft, No Tenderness, No Hepatosplenomegaly, No Masses Extremities: Other (gangrenous foot, absent pulse) Skin: Other (gangrenous foot and wet gangrene on the heel) Neuro: Normal Speech, Normal Tone, Sensation Intact Psych/Mental Status: Mental Status NL, Mood NL Results Lab Laboratory Tests 10/17/18 06:04 A/P-Cardiology Admission Diagnosis Gangrene of toe Peripheral arterial disease Coronary artery disease Hypertension Assessment/Plan Acute respiratory failure, transferred to intensive care unit, started on IV Lasix and Solu-Medrol, still having wheezing. Still having some shortness of breath. Continue with diuretics and monitor. Next Nonhealing foot ulcer on the first great toe of the right leg for the past 10- 11 months. Severe peripheral arterial disease, underwent unsuccessful intervention to the anterior tibial artery, had atherectomy and balloon angioplasty to the right peroneal and posterior tibial artery, still progressed into full necrosis and gangrene of her right toe, having significant pain. scheduled for right BKA on Thursday Anemia, slightly worse, workup is done by Dr. Barnett. Coronary artery disease, status post drug-eluting stent deployment using 2 stents to the LAD Promus Premier 3.012 mm and 3.58 mm, done by Dr. Clements. Patient is on aspirin and Plavix. Continue to monitor Aortic stenosis, echocardiogram showed normal LV size and function with ejection fraction 50-55 percent, moderate aortic valve stenosis with valve area 1.0 cm, severe pulmonary hypertension with PA pressure of 50 mmHg. Continue to monitor Patient was on Eliquis, currently in sinus rhythm with frequent APCs. Not sure about her history. currently off Eliquis, maintained on aspirin and Plavix. Continue to monitor Hypertension, continue to monitor blood pressure Hyperlipidemia, maintained on Crestor and Zetia, continue to monitor lipids Moderate bilateral carotid stenosis, diffuse atherosclerotic plaques will need to have workup done in the future regarding her carotids Diabetes mellitus, followed and managed by primary care physician History of heart disease. I recommend maintaining the patient on aspirin and Plavix due to the recent LAD stent deployment. Risk of bleeding is higher. Overall patient is considered at intermediate to high risk for perioperative cardiovascular complications, decision regarding the surgery, risks versus benefits is deferred to the surgeon Clinical Quality Measures DVT/VTE Risk/Contraindication: Risk Factor Score Per Nursin RFS Level Per Nursing on Admit: 4+=Very High GURWINDER CHINCHILLA MD Oct 17, 2018 08:42
[2018-10-17] MEDS: RT-ALBUTEROL/IPRATROPIUM 3 ML (DUONEB) VIAL INH SCH ×3 (09:13→20:44)
--- NOTE | 2018-10-17 09:19 | Diagnostic Imaging Report ---
INDICATION: Shortness of breath COMPARISON is made to 10/14/2018 FINDINGS: There is cardiomegaly. There is central pulmonary venous congestion. There are patchy bibasilar infiltrates. There is no pneumothorax. The mediastinum is unremarkable. IMPRESSION: Cardiomegaly and moderate central pulmonary venous congestion with patchy bibasilar infiltrates. \ Dictated by: Dictated on workstation # [id number]
[2018-10-17] MEDS: ADVAIR HFA 115/21 MCG INHALER 8 GM IH SCH ×2 (09:22→20:44)
[2018-10-17] MEDS: VANCOMYCIN 1,750 MG/NS 500 ML IVPB IV SCH ×2 (11:19)
[2018-10-17] MEDS ORDERED: BISACODYL 5 MG (DULCOLAX) TABLET PO NR (12:00)
--- NOTE | 2018-10-17 12:50 | Progress Note-Hospitalist ---
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 Saenz's office. She was sent over for definitive treatment for diabetic foot ulcer with infection and gangrene that was in need of some sort of amputation. He recommended vascular evaluation and would be available to do any type of surgery on the fat when Dr. Tolbert was consulted and knew the patient very well since unsuccessfully performed peripheral revascularization through stent and intervention who then was referred to [facility] who could not be successful at the intervention either so a right below the knee amputation was recommended by multiple physicians and Dr. Garcia so recommended general surgery to perform this since it was above the ankle for his podiatry specialty. Patient is a very poor historian she obviously has some sort of memory deficit versus dementia and I obtained most of the information by reviewing her home medication. At this current time patient does report pain but she has had some side effects from pain medication in the past that makes her sleep walk and become confused. I spoke with who will see her in consultation for bloody stools that she is reporting and arrange for right below the knee amputation on Thursday. Subjective/Events-last exam Patient required ICU transfer due to an abrupt onset of acute respiratory failure Appreciate Dr. Cartwright's prompt evaluation when she arrived in the ICU ABG noted Acute exacerbation of CHF is responding to Lasix Exacerbation of COPD is responding to Solu-Medrol also Tachypnea is noted very mild but she cannot undergo the right below the knee amputation with EGD and colonoscopy as planned and I updated Dr. Garcia and he agrees No pain is reported Maintain on IV antibiotics Lovenox maintained for DVT prophylaxis since immobile Review of Systems Pulmonary: Dyspnea Objective Exam Vital Signs Vital Signs Date Time Temp Pulse Resp B/P (MAP) Pulse Ox O2 Delivery O2 Flow Rate FiO2 10/17/18 14:00 87 18 141/85 (103) 100 High Flow N/C 8.00 10/17/18 12:00 98.6 Capillary Refill : Less Than 3 Seconds General Appearance: No Apparent Distress, WD/WN, Chronically ill Respiratory: Chest Non Tender, Accessory Muscle Use, Crackles, Decreased Breath Sounds, Wheezing Cardiovascular: Regular Rate, Rhythm, No Edema, No Gallop, No JVD, Normal Peripheral Pulses, Systolic Murmur Neurologic/Psychiatric: Alert, Oriented x3, No Motor/Sensory Deficits, Normal Mood/Affect, Disoriented Results/Procedures Lab Laboratory Tests 10/17/18 06:04 Patient resulted labs reviewed. Assessment/Plan Assessment and Plan Assess & Plan/Chief Complaint Assessment: Acute respiratory insufficiency due to exacerbation of congestive heart failure with volume overload given Lasix IV and placed in ICU with close monitoring and pulmonology consultation Right acute infected diabetic ulcer of the right foot with gangrene in need of below the knee amputation due to unsuccessful intervention for vascular compromise Chronic atrial fibrillation on anticoagulation holding for surgery but on DVT prophylaxis with Lovenox and meantime CAD w/stent placed 08/29 so must remain on antiplatelet meds Valvular heart disease with systolic murmur Hypertension Diabetes mellitus Hyperlipidemia Anemia iron def Bloody stools consulting general surgery Hypothyroidism Dementia Plan: Hep-locked IV fluid Maintain IV antibiotics for right foot gangrene and cellulitis Lovenox DVT prophylaxis and discontinue oral anticoagulation preparation for right [id number] amputation set for tomorrow but needed to reschedule due to ICU transfer and congestive heart failure exacerbation Endoscopy when able to undergo surgery Maintain antiplatelet agents due to recent stent placed August of this year by Dr. Tolbert Iron infusion Diagnosis/Problems Diagnosis/Problems (1) Respiratory insufficiency Status: Acute (2) Tachypnea Status: Acute (3) Hypoxemia Status: Acute (4) Gangrene of right foot Status: Acute (5) Diabetes mellitus Status: Chronic Qualifiers: Diabetes mellitus type: type 2 Diabetes mellitus termite treater insulin use: with fpc use Diabetes mellitus complication status: with circulatory complication Diabetes mellitus complication detail: with other circulatory complications Qualified Codes: E11.59 - Type 2 diabetes mellitus with other circulatory complications; Z79.4 - termite treater (current) use of insulin (6) Atrial fibrillation Status: Chronic Qualifiers: Atrial fibrillation type: chronic Qualified Codes: I48.2 - Chronic atrial fibrillation (7) Hypertension Status: Chronic Qualifiers: Hypertension type: essential hypertension Qualified Codes: I10 - Essential (primary) hypertension (8) Hyperlipemia Status: Chronic Qualifiers: Hyperlipidemia type: mixed hyperlipidemia Qualified Codes: E78.2 - Mixed hyperlipidemia (9) Hypothyroidism Status: Chronic Qualifiers: Hypothyroidism type: acquired Qualified Codes: E03.9 - Hypothyroidism, unspecified (10) Anemia Status: Acute Qualifiers: Anemia type: iron deficiency Iron deficiency anemia type: chronic blood loss Qualified Codes: D50.0 - Iron deficiency anemia secondary to blood loss ( chronic) (11) Melena Status: Acute (12) COPD (chronic obstructive pulmonary disease) Status: Chronic Qualifiers: COPD type: unspecified COPD Qualified Codes: J44.9 - Chronic obstructive pulmonary disease, unspecified (13) CHF (congestive heart failure) Status: Chronic Qualifiers: Heart failure type: unspecified Heart failure chronicity: unspecified Qualified Codes: I50.9 - Heart failure, unspecified (14) Right foot ulcer Status: Acute Qualifiers: Non-pressure ulcer stage: with necrosis of bone Qualified Codes: L97.514 - Non-pressure chronic ulcer of other part of right foot with necrosis of bone (15) Presence of stent in coronary artery in patient with coronary artery disease Status: Chronic Clinical Quality Measures DVT/VTE Risk/Contraindication: Risk Factor Score Per Nursin RFS Level Per Nursing on Admit: 4+=Very High CHUCK NAVA DO Oct 17, 2018 12:50
[2018-10-17] MEDS ORDERED: MAGNESIUM 1 GM/100 ML IVPB 100 ML IV SCH (13:15)
--- NOTE | 2018-10-17 13:47 | Progress Note ---
Subjective Date Seen by a Provider: Oct 17, 2018 Time Seen by a Provider: 13:42 Subjective/Events-last exam Patient with acute respiratory distress this morning and was transferred to the intensive care unit. Patient is alert but still seems somewhat fatigued. Patient has difficulty breathing. She sews complaints of pain to the right lower extremity. Patient denies any other complaints at this time. Family at bedside. She denies any nausea vomiting fever sweats chills or chest pain. Objective Exam Vital Signs Date Time Temp Pulse Resp B/P (MAP) Pulse Ox O2 Delivery O2 Flow Rate FiO2 10/17/18 12:00 98.6 10/17/18 12:00 92 26 142/94 (110) 100 High Flow N/C 8.00 10/17/18 11:00 85 22 136/85 (102) 96 High Flow N/C 8.00 10/17/18 10:00 93 26 151/77 (101) 100 High Flow N/C 8.00 10/17/18 09:25 High Flow N/C 8.00 10/17/18 09:22 High Flow N/C 8.00 10/17/18 09:14 100 High Flow N/C 10.00 10/17/18 09:00 85 27 152/96 (114) 100 High Flow N/C 10.00 10/17/18 08:00 98.3 10/17/18 08:00 High Flow N/C 10.00 10/17/18 08:00 89 27 152/88 (109) 95 High Flow N/C 10.00 10/17/18 07:03 100 10/17/18 07:00 89 20 100/46 (64) 95 High Flow N/C 10.00 10/17/18 05:10 97.3 96 24 146/89 (108) 91 High Flow N/C 10.00 10/17/18 05:04 97 10/17/18 04:50 91 High Flow N/C 10.00 10/17/18 04:34 86 Nasal Cannula 6.00 10/17/18 04:20 98.1 91 16 159/80 (106) 83 Nasal Cannula 6.00 10/16/18 23:30 97.1 92 18 149/80 (103) 94 Nasal Cannula 6.00 10/16/18 20:06 89 Nasal Cannula 4.00 10/16/18 20:00 Nasal Cannula 4.00 10/16/18 19:21 98.2 112 18 151/87 (108) 91 Nasal Cannula 4.00 10/16/18 19:10 87 Nasal Cannula 4.00 10/16/18 15:35 96.7 94 14 138/80 (99) 90 Nasal Cannula 4.00 10/16/18 15:26 90 Nasal Cannula 4.00 I & O 10/17/18 07:00 Intake Total 3067.5 ml Output Total 1750 ml Balance 1317.5 ml Capillary Refill : Less Than 3 Seconds General Appearance: No Apparent Distress, WD/WN, Chronically ill HEENT: PERRL/EOMI, Pharynx Normal Respiratory: Chest Non Tender, Lungs Clear, Normal Breath Sounds, No Accessory Muscle Use, No Respiratory Distress Cardiovascular: Irregularly Irregular Gastrointestinal: normal bowel sounds, non tender, soft, no organomegaly, no pulsatile mass Extremity: Other (gangrene right foot) Neurologic/Psychiatric: Alert, No Motor/Sensory Deficits, Normal Mood/Affect, Disoriented Skin: Warm/Dry (gangrene change to right foot) Results Lab Laboratory Tests 10/16/18 15:29: Glucometer 52*L 10/16/18 16:19: Glucometer 90 10/16/18 20:04: Glucometer 298H 10/16/18 23:29: Glucometer 198H 10/17/18 04:42: Glucometer 165H 10/17/18 05:20: Blood Gas Puncture Site RIGHT RADIAL, Blood Gas Patient Temperature 97.6, Arterial Blood pH 7.44H, Arterial Blood Partial Pressure CO2 39, Arterial Blood Partial Pressure O2 66L, Arterial Blood HCO3 26, Arterial Blood Total CO2 27.1, Arterial Blood Oxygen Saturation 96, Arterial Blood Base Excess 1.9, Jamey Test POSITIVE, Blood Gas Ventilator Setting YES, Blood Gas Inspired Oxygen 10 10/17/18 06:04: White Blood Count 14.1H, Red Blood Count 2.87L, Hemoglobin 8.5L, Hematocrit 27L , Mean Corpuscular Volume 93, Mean Corpuscular Hemoglobin 30, Mean Corpuscular Hemoglobin Concent 32, Red Cell Distribution Width 15.0H, Platelet Count 607H, Mean Platelet Volume 9.2, Neutrophils (%) (Auto) 81H, Lymphocytes (%) (Auto) 10L , Monocytes (%) (Auto) 9, Eosinophils (%) (Auto) 1, Basophils (%) (Auto) 0, Neutrophils # (Auto) 11.5H, Lymphocytes # (Auto) 1.4, Monocytes # (Auto) 1.2H, Eosinophils # (Auto) 0.1, Basophils # (Auto) 0.0, Sodium Level 138, Potassium Level 3.4L, Chloride Level 102, Carbon Dioxide Level 22, Anion Gap 14, Blood Urea Nitrogen 7, Creatinine 0.69, Estimat Glomerular Filtration Rate > 60, BUN/ Creatinine Ratio 10, Glucose Level 166H, Calcium Level 8.6, Corrected Calcium 9.4, Phosphorus Level 2.9, Magnesium Level 1.2L, Total Bilirubin 0.3, Aspartate Amino Transf (AST/SGOT) 19, Alanine Aminotransferase (ALT/SGPT) 9, Alkaline Phosphatase 116, Troponin I < 0.028, B-Type Natriuretic Peptide 452.0H, Total Protein 6.3L, Albumin 3.0L 10/17/18 06:20: Urine Color YELLOW, Urine Clarity CLEAR, Urine pH 5, Urine Specific [place] 1.015L, Urine Protein 2+H, Urine Glucose (UA) NEGATIVE, Urine Ketones NEGATIVE, Urine Nitrite NEGATIVE, Urine Bilirubin NEGATIVE, Urine Urobilinogen NORMAL, Urine Leukocyte Esterase NEGATIVE, Urine RBC (Auto) NEGATIVE, Urine RBC NONE, Urine WBC RARE, Urine Crystals NONE, Urine Bacteria MODERATEH, Urine Casts NONE , Urine Mucus SMALLH, Urine Culture Indicated NO 10/17/18 06:31: Glucometer 185H 10/17/18 11:21: Glucometer 213H 10/17/18 11:58: Troponin I < 0.028 Microbiology 10/15/18 MRSA Screen - Final, Complete MRSA not isolated Assessment/Plan Assessment/Plan Assessment/Plan Anemia GI Bleed Wet Gangrene right foot Acute restaurant distress CAD, DM, HTN Patient transferred to the intensive care unit. Would recommend optimization medically before proceeding. Patient slightly disoriented and would not be able to tolerate prep for colonoscopy. We'll hold off on procedures for now. Clinical Quality Measures DVT/VTE Risk/Contraindication: Risk Factor Score Per Nursin RFS Level Per Nursing on Admit: 4+=Very High MARCE PADRON DO Oct 17, 2018 13:47
[2018-10-17] MEDS: MAGNESIUM OXIDE (MAG-OX)400 MG TAB PO SCH (17:16)
[2018-10-17] MEDS ORDERED: POLYETHYLENE GLYCOL 17 GM (MIRALAX) PACK PO NR (18:00)
[2018-10-17] MEDS ORDERED: inSUlin ASPART (NovoLOG) 1 UNIT/0.01 ML (CHARGE PER UNIT) SC SCH (21:00)
[2018-10-17 21:36] LABS: ABG BASE EXCESS 3.2 MMOL/L (-2.5-2.5); ABG OXYGEN SATURATION 93 % (94-100); ABG PCO2 41 MMHG (35-45); ABG PH 7.43 (7.37-7.43); ABG PO2 59 MMHG (79-93); ABG TCO2 28.6 MMOL/L (21.0-31.0)
[2018-10-17 21:37] LABS: ALLENS TEST POSITIVE; INSPIRED O2 12L; PATIENT TEMP 97.4; VENTILATOR NO
[2018-10-17] MEDS: amLODIPine 5 MG (NORVASC) TAB PO SCH (21:57)
[2018-10-17] MEDS: lisINopril 5 MG (PRINIVIL) TABLET PO SCH (21:58)
[2018-10-17] MEDS: NORTRIPTYLINE 25 MG (PAMELOR) CAP PO SCH (21:58)
[2018-10-17 21:59] LABS: BUN/CREATININE RATIO 16; CALCIUM 8.6 MG/DL (8.5-10.1); CARBON DIOXIDE 24 MMOL/L (21-32); CHLORIDE 101 MMOL/L (98-107); CREATININE SERUM 0.85 MG/DL (0.60-1.30); GFR ESTIMATED > 60; MAGNESIUM 1.8 MG/DL (1.8-2.4); POTASSIUM 3.8 MMOL/L (3.6-5.0); SODIUM 135 MMOL/L (135-145)
[2018-10-17 22:07] LABS: GLUCOSE 421 MG/DL (70-105)
[2018-10-17] MEDS ORDERED: KCL 20 MEQ POWDER FOR ORAL SOLUTION PO ONE (22:30)
[2018-10-17] MEDS ORDERED: FUROSEMIDE 40 MG/4 ML INJ (LASIX) IV ONE (22:30)
[2018-10-17] MEDS: MAGNESIUM 1 GM/D5W 100 ML IVPB IV SCH (23:21)
[2018-10-18] VITALS (16 sets, daily range): BP systolic 115–156; BP diastolic 73–99
[2018-10-18] MEDS: MAGNESIUM 1 GM/D5W 100 ML IVPB IV SCH (01:02)
[2018-10-18] MEDS: PIPERACILLIN SODIUM/TAZOBACTAM 4.5 GM in NS (IVPB) 100 ML IV SCH ×3 (01:07→16:04)
[2018-10-18] MEDS: inSUlin ASPART (NovoLOG) 1 UNIT/0.01 ML (CHARGE PER UNIT) SC SCH ×6 (01:08→20:31)
[2018-10-18] MEDS: RT-ALBUTEROL/IPRATROPIUM 3 ML (DUONEB) VIAL INH SCH ×4 (03:18→19:27)
[2018-10-18 03:55] LABS: BASOPHILS % (AUTO) 0 % (0-10); EOSINOPHILS % (AUTO) 0 % (0-10); HEMATOCRIT 27 % (35-52); HEMOGLOBIN 8.5 G/DL (11.5-16.0); LYMPHOCYTES # (AUTO) 0.6 X 10^3 (1.0-4.0); LYMPHOCYTES % (AUTO) 4 % (12-44); MEAN CORPUSCULAR HEMOGLOBIN 30 PG (25-34); MEAN CORPUSCULAR HGB CONC 32 G/DL (32-36); MEAN CORPUSCULAR VOLUME 93 FL (80-99); MEAN PLATELET VOLUME 9.4 FL (7.4-10.4); MONOCYTES % (AUTO) 6 % (0-12); NEUTROPHILS # (AUTO) 15.2 X 10^3 (1.8-7.8); NEUTROPHILS % (AUTO) 90 % (42-75); PLATELET COUNT 588 10^3/uL (130-400); RED BLOOD COUNT 2.86 10^6/uL (4.35-5.85); WHITE BLOOD COUNT 16.8 10^3/uL (4.3-11.0)
[2018-10-18 04:18] LABS: BUN/CREATININE RATIO 17; CALCIUM 8.9 MG/DL (8.5-10.1); CARBON DIOXIDE 25 MMOL/L (21-32); CHLORIDE 102 MMOL/L (98-107); CREATININE SERUM 0.76 MG/DL (0.60-1.30); GFR ESTIMATED > 60; GLUCOSE 178 MG/DL (70-105); MAGNESIUM 2.3 MG/DL (1.8-2.4); PHOSPHORUS 2.1 MG/DL (2.3-4.7); POTASSIUM 3.4 MMOL/L (3.6-5.0); SODIUM 139 MMOL/L (135-145)
--- NOTE | 2018-10-18 05:20 | Pulmonary Progress Note ---
Subjective Time Seen by a Provider: 05:22 Subjective/Events-last exam on vapotherm high flow oxygen. C/O generalized pain and discomfort. Sepsis Event Evaluation Height, Weight, BMI Height: 5'8.00" Weight: 173lbs. 6.0oz. 78.674600ui; 25.1 BMI Method:Stated Exam Exam Vital Signs Date Time Temp Pulse Resp B/P (MAP) Pulse Ox O2 Delivery O2 Flow Rate FiO2 10/18/18 03:19 93 Vapotherm 25.00 50 10/18/18 03:00 81 22 130/74 (92) 95 Vapotherm 50.00 25.00 10/18/18 02:00 85 21 142/85 (104) 94 Vapotherm 50.00 25.00 10/18/18 01:00 87 10/18/18 01:00 93 22 129/75 (93) 93 Vapotherm 50.00 25.00 10/18/18 00:00 84 21 143/78 (99) 98 Vapotherm 50.00 25.00 10/17/18 23:00 92 13 145/87 (106) 96 Vapotherm 50.00 25.00 10/17/18 22:00 85 39 135/79 (97) 96 Vapotherm 50.00 25.00 10/17/18 21:57 100 Vapotherm 25.00 50 10/17/18 21:00 86 31 136/70 (92) 92 High Flow N/C 12.00 10/17/18 20:52 High Flow N/C 12.00 10/17/18 20:45 High Flow N/C 12.00 10/17/18 20:45 88 High Flow N/C 10.00 10/17/18 20:33 97.2 High Flow N/C 10.00 10/17/18 20:00 High Flow N/C 12.00 10/17/18 20:00 93 16 146/82 (103) 95 High Flow N/C 10.00 10/17/18 19:00 92 19 134/90 (105) 87 High Flow N/C 10.00 10/17/18 19:00 91 10/17/18 18:00 92 28 117/87 (97) 100 High Flow N/C 6.00 10/17/18 17:00 97 25 130/78 (95) 99 High Flow N/C 6.00 10/17/18 16:00 92 25 129/71 (90) 97 High Flow N/C 6.00 10/17/18 15:22 High Flow N/C 6.00 10/17/18 15:11 100 High Flow N/C 8.00 10/17/18 15:00 101 28 124/70 (88) 100 High Flow N/C 8.00 10/17/18 14:00 87 18 141/85 (103) 100 High Flow N/C 8.00 10/17/18 13:00 87 23 137/76 (96) 98 High Flow N/C 8.00 10/17/18 13:00 87 10/17/18 12:00 98.6 10/17/18 12:00 92 26 142/94 (110) 100 High Flow N/C 8.00 10/17/18 11:00 85 22 136/85 (102) 96 High Flow N/C 8.00 10/17/18 10:00 93 26 151/77 (101) 100 High Flow N/C 8.00 10/17/18 09:25 High Flow N/C 8.00 10/17/18 09:22 High Flow N/C 8.00 10/17/18 09:14 100 High Flow N/C 10.00 10/17/18 09:00 85 27 152/96 (114) 100 High Flow N/C 10.00 10/17/18 08:00 98.3 10/17/18 08:00 High Flow N/C 10.00 10/17/18 08:00 89 27 152/88 (109) 95 High Flow N/C 10.00 10/17/18 07:03 100 10/17/18 07:00 89 20 100/46 (64) 95 High Flow N/C 10.00 I & O 10/18/18 07:00 Intake Total 1500 ml Output Total 1975 ml Balance -475 ml Height & Weight Height: 5'8.00" Weight: 173lbs. 6.0oz. 78.817669ip; 25.1 BMI Method:Stated General Appearance: No Apparent Distress, WD/WN, Chronically ill HEENT: PERRL/EOMI, Pharynx Normal Respiratory: Chest Non Tender, Accessory Muscle Use, Crackles, Decreased Breath Sounds, Wheezing Cardiovascular: Regular Rate, Rhythm, No Edema, No Gallop, No JVD, Normal Peripheral Pulses, Systolic Murmur Gastrointestinal: normal bowel sounds, non tender, soft, no organomegaly, no pulsatile mass Extremity: Other (gangrene right foot) Neurologic/Psychiatric: Alert, Oriented x3, No Motor/Sensory Deficits, Normal Mood/Affect, Disoriented Skin: Warm/Dry (gangrene change to right foot) Results Lab Laboratory Tests 10/17/18 06:04 10/17/18 21:35 10/18/18 03:30 Assessment/Plan Assessment/Plan Acute Respiratory distress - CXR -Check troponin, EKG Pulmonary edema -Lasix and monitor COPDAE SVNs -advair Moderate to severe aortic stenosis -Cardiology following Pulmonary HTN group II Afib - -Pt has been anticoagulated -Cardiology following IDDM Son is at bedside. PT is very agitated secondary to pain and discomfortable. SHe states she is a DNR and does not want to be on vent or CPR done. Family is interested in hospice education. LILLIAN GONZALES DO Oct 18, 2018 05:19
[2018-10-18] MEDS ORDERED: POTASSIUM PHOSPHATE INJ 30 MM in NS (IVPB) 250 ML IV ONE (05:30)
[2018-10-18] MEDS ORDERED: KCL 10 MEQ TAB (MICRO K) PO ONE (05:30)
[2018-10-18] MEDS ORDERED: MAGNESIUM 1 GM/100 ML IVPB 100 ML IV SCH (06:00)
[2018-10-18] MEDS ORDERED: POTASSIUM CL 10MEQ/50ML IVPB 50 ML IV SCH (06:00)
[2018-10-18] MEDS ORDERED: morphine INJ 4 MG/ML 1 ML (VIAL/SYRINGE) ONE (06:00)
[2018-10-18] MEDS ORDERED: KCL 20 MEQ TAB (K-DUR) PO SCH (06:00)
[2018-10-18] MEDS: morphine INJ 4 MG/ML 1 ML (VIAL/SYRINGE) IVP PRN (06:13)
--- NOTE | 2018-10-18 07:16 | Diagnostic Imaging Report ---
INDICATION: Dyspnea Portable upright AP view of the chest is obtained. Since 10/17/2018, there has been slight overall improvement in aeration of the lungs with predominantly central airspace disease. There is also blunting of both costophrenic sulci. No pneumothorax is seen. IMPRESSION: Mild overall improvement in bilateral infiltrate and/or edema. There are probable small bilateral pleural effusions Dictated by: Dictated on workstation # [id number]
[2018-10-18] MEDS: PANTOPRAZOLE 40 MG (PROTONIX) TAB PO SCH (07:31)
[2018-10-18] MEDS: LEVOTHYROXINE 50 MCG (LEVOTHROID) TAB PO SCH (07:31)
[2018-10-18] MEDS: KCL 10 MEQ TAB (MICRO K) PO SCH (07:31)
[2018-10-18] MEDS: ASPIRIN 81 MG CHEW (CHILDREN'S ASA) PO SCH (09:00)
[2018-10-18] MEDS: FUROSEMIDE 40 MG/4 ML INJ (LASIX) IVP SCH (09:00)
[2018-10-18] MEDS: CLOPIDOGREL 75 MG (PLAVIX) TABLET PO SCH (09:01)
[2018-10-18] MEDS: MAGNESIUM OXIDE (MAG-OX)400 MG TAB PO SCH ×2 (09:01→17:45)
--- NOTE | 2018-10-18 09:01 | Diagnostic Imaging Report ---
INDICATION: PICC line placement Portable chest 8:51 AM Left upper extremity PICC line tip projects over the right atrium. There are infiltrates present in both lung bases. There is no appreciable effusion or pneumothorax. IMPRESSION: Bilateral basilar infiltrates unchanged from prior study. PICC line tip projects over the right atrium. Dictated by: Dictated on workstation # [id number]
[2018-10-18] MEDS ORDERED: TROUGH ORDER-PHARMACY XX NR (09:30)
[2018-10-18] MEDS: ADVAIR HFA 115/21 MCG INHALER 8 GM IH SCH ×2 (09:45→19:27)
--- NOTE | 2018-10-18 10:11 | NUR ---
VANCOMYCIN DOSING TROUGH LEVEL 16.7 - CONTINUE CURRENT DOSE OF VANC 1750 MG Q24H
[2018-10-18] MEDS: VANCOMYCIN 1,750 MG/NS 500 ML IVPB IV SCH ×2 (10:35)
--- NOTE | 2018-10-18 11:03 | Progress Note-Hospitalist ---
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 Saenz's office. She was sent over for definitive treatment for diabetic foot ulcer with infection and gangrene that was in need of some sort of amputation. He recommended vascular evaluation and would be available to do any type of surgery on the fat when Dr. Tolbert was consulted and knew the patient very well since unsuccessfully performed peripheral revascularization through stent and intervention who then was referred to [facility] who could not be successful at the intervention either so a right below the knee amputation was recommended by multiple physicians and Dr. Garcia so recommended general surgery to perform this since it was above the ankle for his podiatry specialty. Patient is a very poor historian she obviously has some sort of memory deficit versus dementia and I obtained most of the information by reviewing her home medication. At this current time patient does report pain but she has had some side effects from pain medication in the past that makes her sleep walk and become confused. I spoke with who will see her in consultation for bloody stools that she is reporting and arrange for right below the knee amputation on Thursday. Subjective/Events-last exam IV diuresis is helping. Vascular congestion of pulmonary region improved Weaned off Vapotherm now on high flow Very difficult to get the patient well enough to undergo a right below the knee amputation to avoid respiratory failure postoperatively Needs EGD and colonoscopy also for the bloody stools Maintained on DVT prophylaxis of Lovenox while she is off her oral anticoagulation Overall very difficult to manage considering severe comorbidities and advanced age DO NOT RESUSCITATE status obtained Patient reports that God is in control and will make the decisions and I told her that we would continue to support her that I agreed with that approach and outlook. Review of Systems General: Fatigue Pulmonary: Dyspnea Musculoskeletal: leg pain Objective Exam Vital Signs Vital Signs Date Time Temp Pulse Resp B/P (MAP) Pulse Ox O2 Delivery O2 Flow Rate FiO2 10/18/18 10:00 104 18 134/87 (103) 92 Vapotherm 50.00 15.00 10/18/18 09:43 50 10/18/18 08:00 97.0 Capillary Refill : Less Than 3 Seconds General Appearance: No Apparent Distress, WD/WN, Chronically ill Respiratory: Chest Non Tender, Normal Breath Sounds, No Accessory Muscle Use, No Respiratory Distress, Decreased Breath Sounds Cardiovascular: Regular Rate, Rhythm, No Edema, No Gallop, No JVD, No Murmur, Normal Peripheral Pulses Neurologic/Psychiatric: Alert, Oriented x3, No Motor/Sensory Deficits, Normal Mood/Affect Results/Procedures Lab Laboratory Tests 10/17/18 21:35 10/18/18 03:30 Patient resulted labs reviewed. Assessment/Plan Assessment and Plan Assess & Plan/Chief Complaint Assessment: Acute respiratory insufficiency due to exacerbation of congestive heart failure with volume overload given Lasix IV and placed in ICU with close monitoring and pulmonology consultation now moving to the floor today Right acute infected diabetic ulcer of the right foot with gangrene in need of below the knee amputation due to unsuccessful intervention for vascular compromise Chronic atrial fibrillation on anticoagulation holding for surgery but on DVT prophylaxis with Lovenox and meantime CAD w/stent placed 08/29 so must remain on antiplatelet meds Valvular heart disease with systolic murmur Hypertension Diabetes mellitus Hyperlipidemia Anemia iron def Bloody stools consulting general surgery Hypothyroidism Dementia DNR Plan: Hep-locked IV fluid Maintain IV antibiotics for right foot gangrene and cellulitis Lovenox DVT prophylaxis and discontinue oral anticoagulation preparation for right [id number] amputation set for tomorrow but needed to reschedule due to ICU transfer and congestive heart failure exacerbation Endoscopy when able to undergo surgery Maintain antiplatelet agents due to recent stent placed August of this year by Dr. Tolbert Iron infusion DNR Poor prognosis May not be able to get the patient well enough to undergo surgery and then patient will be a hospice candidate Diagnosis/Problems Diagnosis/Problems (1) Respiratory insufficiency Status: Acute (2) Tachypnea Status: Acute (3) Hypoxemia Status: Acute (4) Gangrene of right foot Status: Acute (5) Diabetes mellitus Status: Chronic Qualifiers: Diabetes mellitus type: type 2 Diabetes mellitus fci insulin use: with fci use Diabetes mellitus complication status: with circulatory complication Diabetes mellitus complication detail: with other circulatory complications Qualified Codes: E11.59 - Type 2 diabetes mellitus with other circulatory complications; Z79.4 - longterm (current) use of insulin (6) Atrial fibrillation Status: Chronic Qualifiers: Atrial fibrillation type: chronic Qualified Codes: I48.2 - Chronic atrial fibrillation (7) Hypertension Status: Chronic Qualifiers: Hypertension type: essential hypertension Qualified Codes: I10 - Essential (primary) hypertension (8) Hyperlipemia Status: Chronic Qualifiers: Hyperlipidemia type: mixed hyperlipidemia Qualified Codes: E78.2 - Mixed hyperlipidemia (9) Hypothyroidism Status: Chronic Qualifiers: Hypothyroidism type: acquired Qualified Codes: E03.9 - Hypothyroidism, unspecified (10) Anemia Status: Acute Qualifiers: Anemia type: iron deficiency Iron deficiency anemia type: chronic blood loss Qualified Codes: D50.0 - Iron deficiency anemia secondary to blood loss ( chronic) (11) Melena Status: Acute (12) COPD (chronic obstructive pulmonary disease) Status: Chronic Qualifiers: COPD type: unspecified COPD Qualified Codes: J44.9 - Chronic obstructive pulmonary disease, unspecified (13) CHF (congestive heart failure) Status: Chronic Qualifiers: Heart failure type: unspecified Heart failure chronicity: unspecified Qualified Codes: I50.9 - Heart failure, unspecified (14) Right foot ulcer Status: Acute Qualifiers: Non-pressure ulcer stage: with necrosis of bone Qualified Codes: L97.514 - Non-pressure chronic ulcer of other part of right foot with necrosis of bone (15) Presence of stent in coronary artery in patient with coronary artery disease Status: Chronic Clinical Quality Measures DVT/VTE Risk/Contraindication: Risk Factor Score Per Nursin RFS Level Per Nursing on Admit: 4+=Very High CHUCK NAVA DO Oct 18, 2018 11:03
[2018-10-18] MEDS: IRON SUCROSE 200 MG/10 ML (VENOFER) VIAL IV SCH (12:31)
--- NOTE | 2018-10-18 12:57 | Progress Note ---
Subjective Time Seen by a Provider: 11:48 Subjective/Events-last exam Patient seen and examined with her son in the room. She states that her pain in the foot is controlled; but was worse before she had the pain shot according to her son. Patient does not appear to be in any distress. Patient denies abdominal pain and has not seen any melena. Review of Systems General: No Chills, No Night Sweats Pulmonary: Dyspnea, Cough Cardiovascular: Palpitations; No: Chest Pain Objective Exam Vital Signs Date Time Temp Pulse Resp B/P (MAP) Pulse Ox O2 Delivery O2 Flow Rate FiO2 10/18/18 11:00 85 16 136/91 (106) 94 Vapotherm 50.00 15.00 10/18/18 10:00 104 18 134/87 (103) 92 Vapotherm 50.00 15.00 10/18/18 09:43 100 Vapotherm 25.00 50 10/18/18 09:00 98 12 133/93 (106) 90 Vapotherm 50.00 25.00 10/18/18 08:00 97.0 94 18 146/99 (115) 93 Vapotherm 50.00 25.00 10/18/18 08:00 Vapotherm 25.00 50 10/18/18 07:00 98 18 133/84 (100) 89 Vapotherm 50.00 25.00 10/18/18 07:00 95 10/18/18 06:00 84 25 133/89 (104) 94 Vapotherm 50.00 25.00 10/18/18 05:00 78 17 115/78 (90) 96 Vapotherm 50.00 25.00 10/18/18 04:00 80 25 131/78 (95) 93 Vapotherm 50.00 25.00 10/18/18 03:19 93 Vapotherm 25.00 50 10/18/18 03:00 81 22 130/74 (92) 95 Vapotherm 50.00 25.00 10/18/18 02:00 85 21 142/85 (104) 94 Vapotherm 50.00 25.00 10/18/18 01:00 87 10/18/18 01:00 93 22 129/75 (93) 93 Vapotherm 50.00 25.00 10/18/18 00:00 84 21 143/78 (99) 98 Vapotherm 50.00 25.00 10/17/18 23:00 92 13 145/87 (106) 96 Vapotherm 50.00 25.00 10/17/18 22:00 85 39 135/79 (97) 96 Vapotherm 50.00 25.00 10/17/18 21:57 100 Vapotherm 25.00 50 10/17/18 21:00 86 31 136/70 (92) 92 High Flow N/C 12.00 10/17/18 20:52 High Flow N/C 12.00 10/17/18 20:45 High Flow N/C 12.00 10/17/18 20:45 88 High Flow N/C 10.00 10/17/18 20:33 97.2 High Flow N/C 10.00 10/17/18 20:00 High Flow N/C 12.00 10/17/18 20:00 93 16 146/82 (103) 95 High Flow N/C 10.00 10/17/18 19:00 92 19 134/90 (105) 87 High Flow N/C 10.00 10/17/18 19:00 91 10/17/18 18:00 92 28 117/87 (97) 100 High Flow N/C 6.00 10/17/18 17:00 97 25 130/78 (95) 99 High Flow N/C 6.00 10/17/18 16:00 92 25 129/71 (90) 97 High Flow N/C 6.00 10/17/18 15:22 High Flow N/C 6.00 10/17/18 15:11 100 High Flow N/C 8.00 10/17/18 15:00 101 28 124/70 (88) 100 High Flow N/C 8.00 10/17/18 14:00 87 18 141/85 (103) 100 High Flow N/C 8.00 10/17/18 13:00 87 23 137/76 (96) 98 High Flow N/C 8.00 10/17/18 13:00 87 I & O 10/18/18 07:00 Intake Total 1900 ml Output Total 3075 ml Balance -1175 ml Capillary Refill : Less Than 3 Seconds General Appearance: No Apparent Distress, Chronically ill HEENT: PERRL/EOMI, Moist Mucous Membranes; No Pale Conjunctivae (L), No Pale Conjunctivae (R) Respiratory: Chest Non Tender, No Accessory Muscle Use, No Respiratory Distress , Crackles, Decreased Breath Sounds (at bases) Cardiovascular: Regular Rate, Rhythm, Systolic Murmur Gastrointestinal: normal bowel sounds, non tender, soft, no organomegaly, no pulsatile mass Extremity: Other (gangrene right foot) Neurologic/Psychiatric: Alert, Oriented x3 Results Lab Laboratory Tests 10/17/18 16:57: Glucometer 491*H 10/17/18 17:50: Troponin I < 0.028 10/17/18 21:16: Glucometer 395H 10/17/18 21:35: Sodium Level 135, Potassium Level 3.8, Chloride Level 101, Carbon Dioxide Level 24, Anion Gap 10, Blood Urea Nitrogen 14, Creatinine 0.85, Estimat Glomerular Filtration Rate > 60, BUN/Creatinine Ratio 16, Glucose Level 421*H, Calcium Level 8.6, Magnesium Level 1.8 10/18/18 00:53: Glucometer 311H 10/18/18 03:30: White Blood Count 16.8H, Red Blood Count 2.86L, Hemoglobin 8.5L, Hematocrit 27L , Mean Corpuscular Volume 93, Mean Corpuscular Hemoglobin 30, Mean Corpuscular Hemoglobin Concent 32, Red Cell Distribution Width 15.0H, Platelet Count 588H, Mean Platelet Volume 9.4, Neutrophils (%) (Auto) 90H, Lymphocytes (%) (Auto) 4L , Monocytes (%) (Auto) 6, Eosinophils (%) (Auto) 0, Basophils (%) (Auto) 0, Neutrophils # (Auto) 15.2H, Lymphocytes # (Auto) 0.6L, Monocytes # (Auto) 1.0, Eosinophils # (Auto) 0.0, Basophils # (Auto) 0.0, Sodium Level 139, Potassium Level 3.4L, Chloride Level 102, Carbon Dioxide Level 25, Anion Gap 12, Blood Urea Nitrogen 13, Creatinine 0.76, Estimat Glomerular Filtration Rate > 60, BUN/ Creatinine Ratio 17, Glucose Level 178H, Calcium Level 8.9, Phosphorus Level 2.1L, Magnesium Level 2.3 10/18/18 09:02: Glucometer 87 10/18/18 09:25: Vancomycin Level Trough 16.7 10/18/18 12:12: Glucometer 276H Microbiology 10/15/18 MRSA Screen - Final, Complete MRSA not isolated Assessment/Plan Assessment/Plan Assessment/Plan Anemia GI Bleed Wet Gangrene right foot Acute restaurant distress CAD, DM, HTN Pt was made a DNR and was thinking about hospice; however, her foot is hurting her too much to do nothing. I think the upper and lower endoscopies should be skipped, but still plan on BKA for pain control. Pt and her son agree and want the surgery. They understand that surgery comes with possible complications including . It would be unfair to the patient to not do surgery since he pain is not controlled. They understand there will be post-surgical pain. All questions answered to their satisfaction. Clinical Quality Measures DVT/VTE Risk/Contraindication: Risk Factor Score Per Nursin RFS Level Per Nursing on Admit: 4+=Very High KIKE JACOBO DO Oct 18, 2018 12:57
--- NOTE | 2018-10-18 13:50 | NUR ---
PT TO ROOM 432 VIA WC ACCOMPANIED BY THIS RN AND PT SON. PT PERSONAL BELONGINGS SENT WITH PT TO NEW ROOM. BEDSIDE REPORT GIVEN TO MARIE LIEBERMAN FOR CONTINUING CARE.
[2018-10-18] MEDS: HYDROcodone/APAP 5 MG/325 MG (LORTAB) TAB PO PRN (14:11)
--- NOTE | 2018-10-18 14:15 | NUR ---
PT TO ROOM 432 VIA W/C ACCOMPANIED BY Mel NINO RN AT 1350 ON [address] L[address] SIMPLE MASC. PT ALERT AND ORIENTED. SON AT BEDSIDE. MURRY TO D/D WITH DARK JOHANNY URINE NOTED. BREATH SOUNDS B/L ANTERIOR AND POSTERIORLY NOTED TO BE DIMINISHED AND COURSE. PT POSITIONED PER COMFORT, CALL LIGHT AND OTHER PERSONAL ITEMS WITHIN REACH WILL CONTINUE TO MONITOR.
--- NOTE | 2018-10-18 15:20 | NUR ---
CM/SS spoke with the patient and the family in regards to the SS consult. Patient was not able to go to surgery this day for amputation of foot, it should be tomorrow she believes. Patient states that lives with her daughter in an older home, it has no central heat and air due to home being over 100yrs old. They use furnaces in bedrooms and the bathroom, in attempts to keep heating costs down. Patient could be a candidate for IRF after surgery. Will continue to follow in EMR.
--- NOTE | 2018-10-18 16:33 | Cardiology Progress Note ---
Subjective Date Seen by Provider: Oct 18, 2018 Time Seen by Provider: 09:00 Subjective/Events-last exam patient was seen and evaluated with her son in the room then I returned with her son and daughter in the room had long discussion about her risks and benefits of the surgery, the increased risk of , the possibility of hospice and the possibility of DO NOT RESUSCITATE and the benefit of surgery Review of Systems General: No Chills, No Night Sweats, No Fatigue, No Malaise, No Appetite, No Other HEENT: No Head Aches, No Visual Changes, No Eye Pain, No Ear Pain, No Dysphasia , No Sinus Congestion, No Post Nasal Drip, No Sore Throat, No Other Pulmonary: Dyspnea; No Cough, No Pleuritic Chest Pain, No Other Cardiovascular: No: Chest Pain, Palpitations, Orthopnea, Paroxysmal Noc. Dyspnea, Edema, Lt Headedness, Other Objective-Cardiology Exam Last Set of Vital Signs Vital Signs 10/18/18 10/18/18 10/18/18 08:00 13:00 15:58 Temp 97.0 Pulse 98 Resp 17 B/P (MAP) 124/77 (93) Pulse Ox 92 O2 Delivery Vapotherm O2 Flow Rate 15.00 FiO2 50 Capillary Refill : Less Than 3 Seconds I&O Intake and Output 10/18/18 00:00 Intake Total 1500 ml Output Total 2725 ml Balance -1225 ml Intake Oral 1000 ml IV Total 500 ml Output Urine Total 2725 ml General: Alert, Oriented X3, Cooperative, Moderate Distress HEENT: Atraumatic, PERRLA Neck: Supple, No Thyromegaly Lungs: Normal Air Movement, Other (bilateral wheezing, rhonchi) Heart: Regular Rate, Normal S1, Normal S2, Other (systolic murmur at the left sternal border) Abdomen: Normal Bowel Sounds, Soft, No Tenderness, No Hepatosplenomegaly, No Masses Extremities: Other (gangrenous foot, absent pulse) Skin: Other (gangrenous foot and wet gangrene on the heel) Neuro: Normal Speech, Normal Tone, Sensation Intact Psych/Mental Status: Mental Status NL, Mood NL Results Lab Laboratory Tests 10/17/18 21:35 10/18/18 03:30 A/P-Cardiology Admission Diagnosis Gangrene of toe Peripheral arterial disease Coronary artery disease Hypertension Assessment/Plan Status post acute respiratory failure, better at this time, still on Vapotherm. Nonhealing foot ulcer on the first great toe of the right leg for the past 10- 11 months. Severe peripheral arterial disease, underwent unsuccessful intervention to the anterior tibial artery, had atherectomy and balloon angioplasty to the right peroneal and posterior tibial artery, still progressed into full necrosis and gangrene of her right toe, having significant pain. scheduled for right BKA, had a long discussion with the patient and her son and daughter regarding the risks and benefits of the surgery, she will discuss it with Dr. Garcia. Anemia, monitored by primary care physician. Transfuse as needed. Coronary artery disease, status post drug-eluting stent deployment using 2 stents to the LAD Promus Premier 3.012 mm and 3.58 mm, done by Dr. Clements. Patient is on aspirin and Plavix. Continue to monitor Aortic stenosis, echocardiogram showed normal LV size and function with ejection fraction 50-55 percent, moderate aortic valve stenosis with valve area 1.0 cm, severe pulmonary hypertension with PA pressure of 50 mmHg. Continue to monitor Patient was on Eliquis, currently in sinus rhythm with frequent APCs. Not sure about her history. currently off Eliquis, maintained on aspirin and Plavix. Continue to monitor Hypertension, continue to monitor blood pressure Hyperlipidemia, maintained on Crestor and Zetia, continue to monitor lipids Moderate bilateral carotid stenosis, diffuse atherosclerotic plaques will need to have workup done in the future regarding her carotids Diabetes mellitus, followed and managed by primary care physician History of heart disease. I recommend maintaining the patient on aspirin and Plavix due to the recent LAD stent deployment. Risk of bleeding is higher. Overall patient is considered at intermediate to high risk for perioperative cardiovascular complications, decision regarding the surgery, risks versus benefits is deferred to the surgeon Clinical Quality Measures DVT/VTE Risk/Contraindication: Risk Factor Score Per Nursin RFS Level Per Nursing on Admit: 4+=Very High GURWINDER CHINCHILLA MD Oct 18, 2018 16:33
[2018-10-18] MEDS: lisINopril 5 MG (PRINIVIL) TABLET PO SCH (20:31)
[2018-10-18] MEDS: amLODIPine 5 MG (NORVASC) TAB PO SCH (20:31)
[2018-10-18] MEDS: NORTRIPTYLINE 25 MG (PAMELOR) CAP PO SCH (20:31)
[2018-10-19] VITALS (8 sets, daily range): BP systolic 127–169; BP diastolic 73–90
[2018-10-19] MEDS: inSUlin ASPART (NovoLOG) 1 UNIT/0.01 ML (CHARGE PER UNIT) SC SCH ×6 (00:31→19:59)
[2018-10-19] MEDS: ALPRAZolam 0.25 MG (XANAX) TAB PO PRN ×2 (00:35→21:14)
[2018-10-19] MEDS: PIPERACILLIN SODIUM/TAZOBACTAM 4.5 GM in NS (IVPB) 100 ML IV SCH ×4 (00:35→23:53)
[2018-10-19] MEDS: RT-ALBUTEROL/IPRATROPIUM 3 ML (DUONEB) VIAL INH SCH ×4 (02:59→19:06)
[2018-10-19 05:37] LABS: BASOPHILS % (AUTO) 0 % (0-10); EOSINOPHILS # (AUTO) 0.1 10^3/uL (0.0-0.3); EOSINOPHILS % (AUTO) 0 % (0-10); HEMATOCRIT 27 % (35-52); HEMOGLOBIN 8.3 G/DL (11.5-16.0); LYMPHOCYTES # (AUTO) 1.8 X 10^3 (1.0-4.0); LYMPHOCYTES % (AUTO) 13 % (12-44); MEAN CORPUSCULAR HEMOGLOBIN 29 PG (25-34); MEAN CORPUSCULAR HGB CONC 31 G/DL (32-36); MEAN CORPUSCULAR VOLUME 95 FL (80-99); MONOCYTES % (AUTO) 7 % (0-12); NEUTROPHILS # (AUTO) 11.6 X 10^3 (1.8-7.8); NEUTROPHILS % (AUTO) 80 % (42-75); PLATELET COUNT 630 10^3/uL (130-400); RED BLOOD COUNT 2.83 10^6/uL (4.35-5.85); RED CELL DISTRIBUTION WIDTH 15.6 % (10.0-14.5); WHITE BLOOD COUNT 14.5 10^3/uL (4.3-11.0)
[2018-10-19 05:54] LABS: BUN/CREATININE RATIO 26; CALCIUM 8.5 MG/DL (8.5-10.1); CARBON DIOXIDE 27 MMOL/L (21-32); CHLORIDE 103 MMOL/L (98-107); CREATININE SERUM 0.73 MG/DL (0.60-1.30); GFR ESTIMATED > 60; GLUCOSE 175 MG/DL (70-105); MAGNESIUM 1.5 MG/DL (1.8-2.4); PHOSPHORUS 2.9 MG/DL (2.3-4.7); POTASSIUM 4.6 MMOL/L (3.6-5.0); SODIUM 140 MMOL/L (135-145)
[2018-10-19] MEDS: KCL 10 MEQ TAB (MICRO K) PO SCH ×2 (06:33→06:34)
[2018-10-19] MEDS: PANTOPRAZOLE 40 MG (PROTONIX) TAB PO SCH (06:44)
[2018-10-19] MEDS: LEVOTHYROXINE 50 MCG (LEVOTHROID) TAB PO SCH (06:44)
--- NOTE | 2018-10-19 07:16 | Pulmonary Progress Note ---
Subjective Time Seen by a Provider: 07:16 Subjective/Events-last exam Probable surgery today. Sepsis Event Evaluation Height, Weight, BMI Height: 5'8.00" Weight: 174lbs. 6.0oz. 79.556644gz; 25.1 BMI Method:Stated Exam Exam Vital Signs Date Time Temp Pulse Resp B/P (MAP) Pulse Ox O2 Delivery O2 Flow Rate FiO2 10/19/18 04:00 96.1 95 18 137/73 (94) 96 Vapotherm 50.00 15.00 10/19/18 02:59 98 Vapotherm 15.00 50 10/19/18 00:00 96.6 61 14 127/79 (95) 94 Vapotherm 50.00 15.00 10/18/18 20:15 97.2 94 20 156/73 (100) 96 Vapotherm 50.00 15.00 10/18/18 20:00 Vapotherm 15.00 50 10/18/18 19:28 93 Vapotherm 15.00 50 10/18/18 16:52 98.0 98 20 147/77 (100) 97 Vapotherm 50.00 15.00 10/18/18 15:58 92 Vapotherm 15.00 50 10/18/18 13:00 98 17 124/77 (93) 93 Vapotherm 50.00 15.00 10/18/18 12:56 85 10/18/18 12:00 89 22 116/87 (97) 94 Vapotherm 50.00 15.00 10/18/18 11:00 85 16 136/91 (106) 94 Vapotherm 50.00 15.00 10/18/18 10:00 104 18 134/87 (103) 92 Vapotherm 50.00 15.00 10/18/18 09:43 100 Vapotherm 25.00 50 10/18/18 09:00 98 12 133/93 (106) 90 Vapotherm 50.00 25.00 10/18/18 08:00 97.0 94 18 146/99 (115) 93 Vapotherm 50.00 25.00 10/18/18 08:00 Vapotherm 25.00 50 I & O 10/19/18 07:00 Intake Total 940 ml Output Total 725 ml Balance 215 ml Height & Weight Height: 5'8.00" Weight: 174lbs. 6.0oz. 79.738416zr; 25.1 BMI Method:Stated General Appearance: No Apparent Distress, Chronically ill HEENT: PERRL/EOMI, Moist Mucous Membranes; No Pale Conjunctivae (L), No Pale Conjunctivae (R) Respiratory: Chest Non Tender, No Accessory Muscle Use, No Respiratory Distress , Crackles, Decreased Breath Sounds (at bases) Cardiovascular: Regular Rate, Rhythm, Systolic Murmur Gastrointestinal: normal bowel sounds, non tender, soft, no organomegaly, no pulsatile mass Extremity: Other (gangrene right foot) Neurologic/Psychiatric: Alert, Oriented x3 Results Lab Laboratory Tests 10/17/18 21:35 10/18/18 03:30 10/19/18 05:30 Assessment/Plan Assessment/Plan Acute Respiratory distress - -Still requiring Vapotherm high flow oxygen Pulmonary edema -Lasix and monitor COPDAE SVNs -advair Moderate to severe aortic stenosis -Cardiology following Pulmonary HTN group II Afib - -Cardiology following IDDM LILLIAN GONZALES DO Oct 19, 2018 07:16
--- NOTE | 2018-10-19 07:35 | Cardiology Progress Note ---
Subjective Date Seen by Provider: Oct 19, 2018 Time Seen by Provider: 07:33 Subjective/Events-last exam patient is laying down in bed, scheduled for surgery today. No new complaint Review of Systems General: No Chills, No Night Sweats, No Fatigue, No Malaise, No Appetite, No Other HEENT: No Head Aches, No Visual Changes, No Eye Pain, No Ear Pain, No Dysphasia , No Sinus Congestion, No Post Nasal Drip, No Sore Throat, No Other Pulmonary: No Dyspnea, No Cough, No Pleuritic Chest Pain, No Other Cardiovascular: No: Chest Pain, Palpitations, Orthopnea, Paroxysmal Noc. Dyspnea, Edema, Lt Headedness, Other Objective-Cardiology Exam Last Set of Vital Signs Vital Signs 10/19/18 10/19/18 02:59 04:00 Temp 96.1 Pulse 95 Resp 18 B/P (MAP) 137/73 (94) Pulse Ox 96 O2 Delivery Vapotherm O2 Flow Rate 50.00 15.00 FiO2 50 Capillary Refill : Less Than 3 Seconds I&O Intake and Output 10/19/18 00:00 Intake Total 1240 ml Output Total 1825 ml Balance -585 ml Intake Oral 840 ml IV Total 400 ml Output Urine Total 1825 ml General: Alert, Oriented X3, Cooperative, Moderate Distress HEENT: Atraumatic, PERRLA Neck: Supple, No Thyromegaly Lungs: Normal Air Movement, Other (bilateral wheezing, rhonchi) Heart: Regular Rate, Normal S1, Normal S2, Other (systolic murmur at the left sternal border) Abdomen: Normal Bowel Sounds, Soft, No Tenderness, No Hepatosplenomegaly, No Masses Extremities: No Clubbing, Other (gangrenous foot, absent pulse) Skin: Other (gangrenous foot and wet gangrene on the heel) Neuro: Normal Speech, Normal Tone, Sensation Intact Psych/Mental Status: Mental Status NL, Mood NL Results Lab Laboratory Tests 10/19/18 05:30 A/P-Cardiology Admission Diagnosis Gangrene of toe Peripheral arterial disease Coronary artery disease Hypertension Assessment/Plan Status post acute respiratory failure, better at this time, still on Vapotherm, and continue on IV Lasix and monitor tolerance and response Nonhealing foot ulcer on the first great toe of the right leg for the past 10- 11 months. Severe peripheral arterial disease, underwent unsuccessful intervention to the anterior tibial artery, had atherectomy and balloon angioplasty to the right peroneal and posterior tibial artery, still progressed into full necrosis and gangrene of her right toe, having significant pain. scheduled for right BKA Anemia, monitored by primary care physician. Transfuse as needed. Coronary artery disease, status post drug-eluting stent deployment using 2 stents to the LAD Promus Premier 3.012 mm and 3.58 mm, done by Dr. Clements. Patient is on aspirin and Plavix. Continue to monitor Aortic stenosis, echocardiogram showed normal LV size and function with ejection fraction 50-55 percent, moderate aortic valve stenosis with valve area 1.0 cm, severe pulmonary hypertension with PA pressure of 50 mmHg. Continue to monitor Patient was on Eliquis, currently in sinus rhythm with frequent APCs. Not sure about her history. currently off Eliquis, maintained on aspirin and Plavix. Continue to monitor Hypertension, continue to monitor blood pressure Hyperlipidemia, maintained on Crestor and Zetia, continue to monitor lipids Moderate bilateral carotid stenosis, diffuse atherosclerotic plaques will need to have workup done in the future regarding her carotids Diabetes mellitus, followed and managed by primary care physician History of heart disease. I recommend maintaining the patient on aspirin and Plavix due to the recent LAD stent deployment. Risk of bleeding is higher. Overall patient is considered at intermediate to high risk for perioperative cardiovascular complications, decision regarding the surgery, risks versus benefits is deferred to the surgeon Clinical Quality Measures DVT/VTE Risk/Contraindication: Risk Factor Score Per Nursin RFS Level Per Nursing on Admit: 4+=Very High GURWINDER CHINCHILLA MD Oct 19, 2018 07:35
--- NOTE | 2018-10-19 09:17 | Progress Note-Hospitalist ---
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 Saenz's office. She was sent over for definitive treatment for diabetic foot ulcer with infection and gangrene that was in need of some sort of amputation. He recommended vascular evaluation and would be available to do any type of surgery on the fat when Dr. Tolbert was consulted and knew the patient very well since unsuccessfully performed peripheral revascularization through stent and intervention who then was referred to [facility] who could not be successful at the intervention either so a right below the knee amputation was recommended by multiple physicians and Dr. Garcia so recommended general surgery to perform this since it was above the ankle for his podiatry specialty. Patient is a very poor historian she obviously has some sort of memory deficit versus dementia and I obtained most of the information by reviewing her home medication. At this current time patient does report pain but she has had some side effects from pain medication in the past that makes her sleep walk and become confused. I spoke with who will see her in consultation for bloody stools that she is reporting and arrange for right below the knee amputation on Thursday. Subjective/Events-last exam Ready for surgery today IV abx maintained Optimized volume overload Review of Systems Pulmonary: Dyspnea Musculoskeletal: leg pain Objective Exam Vital Signs Vital Signs Date Time Temp Pulse Resp B/P (MAP) Pulse Ox O2 Delivery O2 Flow Rate FiO2 10/19/18 08:59 97.5 100 20 169/89 (115) 95 Vapotherm 50.00 15.00 10/19/18 02:59 50 Capillary Refill : Less Than 3 Seconds General Appearance: No Apparent Distress, WD/WN, Chronically ill Respiratory: Chest Non Tender, No Accessory Muscle Use, No Respiratory Distress , Crackles, Decreased Breath Sounds Cardiovascular: No Gallop, No JVD, No Murmur, Normal Peripheral Pulses, Systolic Murmur, Irregularly Irregular, Tachycardia Neurologic/Psychiatric: Alert, No Motor/Sensory Deficits, Normal Mood/Affect, Disoriented Results/Procedures Lab Laboratory Tests 10/19/18 05:30 Patient resulted labs reviewed. Assessment/Plan Assessment and Plan Assess & Plan/Chief Complaint Assessment: Acute respiratory insufficiency due to exacerbation of congestive heart failure with volume overload given Lasix IV and placed in ICU with close monitoring and pulmonology consultation now moving to the floor today Right acute infected diabetic ulcer of the right foot with gangrene in need of below the knee amputation due to unsuccessful intervention for vascular compromise Chronic atrial fibrillation on anticoagulation holding for surgery but on DVT prophylaxis with Lovenox and meantime CAD w/stent placed 08/29 so must remain on antiplatelet meds Valvular heart disease with systolic murmur Hypertension Diabetes mellitus Hyperlipidemia Anemia iron def Bloody stools consulting general surgery Hypothyroidism Dementia DNR Plan: Hep-locked IV fluid Maintain IV antibiotics for right foot gangrene and cellulitis Lovenox DVT prophylaxis and discontinue oral anticoagulation preparation for right [id number] amputation set for tomorrow but needed to reschedule due to ICU transfer and congestive heart failure exacerbation Endoscopy when able to undergo surgery Maintain antiplatelet agents due to recent stent placed August of this year by Dr. 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 Diabetes mellitus complication status: with circulatory complication Diabetes mellitus complication detail: with other circulatory complications Qualified Codes: E11.59 - Type 2 diabetes mellitus with other circulatory complications; 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 of 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 (6) Atrial fibrillation Status: Chronic Qualifiers: Atrial fibrillation type: chronic Qualified Codes: I48.2 - Chronic atrial fibrillation (7) Hypertension Status: Chronic Qualifiers: Hypertension type: essential hypertension Qualified Codes: I10 - Essential (primary) hypertension (8) Hyperlipemia Status: Chronic Qualifiers: Hyperlipidemia type: mixed hyperlipidemia Qualified Codes: E78.2 - Mixed hyperlipidemia (9) Hypothyroidism Status: Chronic Qualifiers: Hypothyroidism type: acquired Qualified Codes: E03.9 - Hypothyroidism, unspecified (10) Anemia Status: Acute Qualifiers: Anemia type: iron deficiency Iron deficiency anemia type: chronic blood loss Qualified Codes: D50.0 - Iron deficiency anemia secondary to blood loss ( chronic) (11) Melena Status: Acute (12) COPD (chronic obstructive pulmonary disease) Status: Chronic Qualifiers: COPD type: unspecified COPD Qualified Codes: J44.9 - Chronic obstructive pulmonary disease, unspecified (13) CHF (congestive heart failure) Status: Chronic Qualifiers: Heart failure type: unspecified Heart failure chronicity: unspecified Qualified Codes: I50.9 - Heart failure, unspecified (14) Right foot ulcer Status: Acute Qualifiers: Non-pressure ulcer stage: with necrosis of bone Qualified Codes: L97.514 - Non-pressure chronic ulcer of other part of right foot with necrosis of bone (15) Presence of stent in coronary artery in patient with coronary artery disease Status: Chronic Clinical Quality Measures DVT/VTE Risk/Contraindication: Risk Factor Score Per Nursin RFS Level Per Nursing on Admit: 4+=Very High JAMEL ELMORE MEDICAL STUDENT 10/19/18 0937: Subjective Subjective/Events-last exam Pt states pain of her foot is controlled by medication but continues to hurt when pain medication wears off Pt stable for surgery Right BKA scheduled with Dr Garcia today Objective Exam General Appearance: No Apparent Distress, WD/WN, Chronically ill HEENT: PERRL/EOMI Respiratory: No Accessory Muscle Use, No Respiratory Distress, Decreased Breath Sounds Cardiovascular: Regular Rate, Rhythm, Systolic Murmur Extremity: Normal Capillary Refill, Normal Inspection, Other (necrosis of right first toe with swelling and ecchymosis that spreads to medial aspect of right midfoot) Neurologic/Psychiatric: Alert CHUCK NAVA DO Oct 19, 2018 09:17 JAMEL ELMORE MEDICAL STUDENT Oct 19, 2018 09:37
[2018-10-19] MEDS: FUROSEMIDE 40 MG/4 ML INJ (LASIX) IVP SCH (09:44)
[2018-10-19] MEDS: MAGNESIUM OXIDE (MAG-OX)400 MG TAB PO SCH ×2 (09:54→18:16)
[2018-10-19] MEDS: CLOPIDOGREL 75 MG (PLAVIX) TABLET PO SCH (09:54)
[2018-10-19] MEDS: ASPIRIN 81 MG CHEW (CHILDREN'S ASA) PO SCH (09:54)
[2018-10-19] MEDS: VANCOMYCIN 1,750 MG/NS 500 ML IVPB IV SCH ×2 (10:05)
[2018-10-19] MEDS: ADVAIR HFA 115/21 MCG INHALER 8 GM IH SCH ×2 (10:11→19:06)
[2018-10-19] MEDS: morphine INJ 4 MG/ML 1 ML (VIAL/SYRINGE) IVP PRN ×3 (12:23→19:40)
[2018-10-19] MEDS ORDERED: fentaNYL INJECTION 100 MCG/2 ML AMP ONE ×2 (12:32→13:50)
--- NOTE | 2018-10-19 13:04 | NUR ---
PT TO OR VIA BED ACCOMPANIED BY OR STAFF AND FAMILY. PT TRANSFERRED ON 10 LITERS SIMPLE MASK
--- NOTE | 2018-10-19 13:09 | Progress Note-Pre Operative ---
Pre-Operative Progress Note H&P Reviewed The H&P was reviewed, patient examined and no changes noted. Time Seen by Provider: 13:06 Date H&P Reviewed: Oct 19, 2018 Time H&P Reviewed: 13:07 Pre-Operative Diagnosis: Wet gangrene right foot KIKE JACOBO DO Oct 19, 2018 13:09
[2018-10-19] MEDS ORDERED: proPOfol 200 MG/20 ML (DIPRIVAN) VIAL IV ONE (13:51)
[2018-10-19] MEDS ORDERED: SEVOFLURANE (ULTANE) 15 ML INHAL SOLN ONE ×4 (13:51→14:22)
[2018-10-19] MEDS ORDERED: LIDOCAINE PF 2% 5 ML (XYLOCAINE) VIAL ONE (13:51)
[2018-10-19] MEDS ORDERED: ONDANSETRON 4 MG/2 ML (SDV) Z0FRAN ONE (13:51)
[2018-10-19] MEDS ORDERED: morphine INJ 10 MG/ML 1ML (SYR OR VIAL) ONE (14:59)
--- NOTE | 2018-10-19 15:51 | Progress Note-Post Operative ---
Post-Operative Progess Note Surgeon (s)/Manager Commodities (s) Surgeon KIKE JACOBO DO Manager Commodities: Anibal Pre-Operative Diagnosis Wet gangrene right foot Post-Operative Diagnosis Same pending path Procedure & Operative Findings Date of Procedure 10/19/18 Procedure Performed/Findings Right BKA Anesthesia Type GET Estimated Blood Loss Estimated blood loss (mL): less than 40ml Specimens/Packing Specimens Removed right leg, below the knee KIKE JACOBO DO Oct 19, 2018 15:51
[2018-10-19] MEDS: HYDROcodone/APAP 5 MG/325 MG (LORTAB) TAB PO PRN ×2 (15:52→21:15)
--- NOTE | 2018-10-19 16:42 | NUR ---
1535 PT BACK TO ROOM 432 VIA BED ACCOMPANIED BY PAR NURSES. REPORT RECEIVED FROM Sruthi GERMAIN RN. DRESSING TO RIGHT STUMP D/I AND ELEVATED ON PILLOWS RT IN WITH PT AND PT PLACED BACK ON VAPOTHERM. MULTIPLE FAMILY MEMBERS AT BEDSIDE, CALL LIGHT AND OTHER PERSONAL ITEMS AT BEDSIDE WILL CONTINUE TO MONITOR. 1545 PT'S SA02 NOTED AT 88 RT NOTIFIED AND PER RT LISA INCREASED OXYGEN TO 65% AND 02 UP TO 90%. PT C/OF OF PAIN RATES PAIN AT "100" ON 0-10 SCALE. MORPHINE 2 MG GIVEN AND 1 LORTAB GIVEN. WILL CONTINUE TO MONITOR.
[2018-10-19] MEDS ORDERED: morphine INJ 10 MG/ML 1ML (SYR OR VIAL) IVP ONE (17:15)
[2018-10-19] MEDS: NORTRIPTYLINE 25 MG (PAMELOR) CAP PO SCH (21:14)
[2018-10-19] MEDS: lisINopril 5 MG (PRINIVIL) TABLET PO SCH (21:14)
[2018-10-19] MEDS: amLODIPine 5 MG (NORVASC) TAB PO SCH (21:15)
[2018-10-20] MEDS: inSUlin ASPART (NovoLOG) 1 UNIT/0.01 ML (CHARGE PER UNIT) SC SCH ×6 (00:07→20:21)
[2018-10-20] MEDS: RT-ALBUTEROL/IPRATROPIUM 3 ML (DUONEB) VIAL INH SCH ×4 (02:30→19:50)
[2018-10-20 04:00] VITALS: BP 159/79
[2018-10-20] MEDS: LEVOTHYROXINE 50 MCG (LEVOTHROID) TAB PO SCH (05:11)
[2018-10-20] MEDS: HYDROcodone/APAP 5 MG/325 MG (LORTAB) TAB PO PRN ×4 (05:11→20:18)
[2018-10-20] MEDS: PANTOPRAZOLE 40 MG (PROTONIX) TAB PO SCH (05:12)
[2018-10-20 05:20] LABS: BASOPHILS % (AUTO) 0 % (0-10); EOSINOPHILS # (AUTO) 0.1 10^3/uL (0.0-0.3); EOSINOPHILS % (AUTO) 0 % (0-10); HEMATOCRIT 28 % (35-52); HEMOGLOBIN 8.9 G/DL (11.5-16.0); LYMPHOCYTES # (AUTO) 0.9 X 10^3 (1.0-4.0); LYMPHOCYTES % (AUTO) 6 % (12-44); MEAN CORPUSCULAR HEMOGLOBIN 30 PG (25-34); MEAN CORPUSCULAR HGB CONC 31 G/DL (32-36); MEAN CORPUSCULAR VOLUME 95 FL (80-99); MONOCYTES # (AUTO) 1.7 X 10^3 (0.0-1.0); MONOCYTES % (AUTO) 10 % (0-12); NEUTROPHILS # (AUTO) 13.3 X 10^3 (1.8-7.8); NEUTROPHILS % (AUTO) 83 % (42-75); PLATELET COUNT 633 10^3/uL (130-400); RED CELL DISTRIBUTION WIDTH 15.5 % (10.0-14.5)
[2018-10-20 05:58] LABS: BAND NEUTROPHILS 3 %; BASOPHILS % (MANUAL) 0 %; EOSINOPHILS % (MANUAL) 0 %; LYMPHOCYTES % (MANUAL) 7 %; MONOCYTES % (MANUAL) 4 %; NEUTROPHILS % (MANUAL) 86 %
[2018-10-20 05:59] LABS: ANISOCYTOSIS SLIGHT; ELLIPT/OVALOCYTES SLIGHT; HYPOCHROMASIA SLIGHT; POIKILOCYTOSIS SLIGHT; TOXIC GRANULATION/VACUOLAZATIO 1+
[2018-10-20 06:20] LABS: BUN/CREATININE RATIO 18; CALCIUM 9.2 MG/DL (8.5-10.1); CARBON DIOXIDE 30 MMOL/L (21-32); CHLORIDE 94 MMOL/L (98-107); CREATININE SERUM 0.71 MG/DL (0.60-1.30); GFR ESTIMATED > 60; GLUCOSE 156 MG/DL (70-105); MAGNESIUM 1.4 MG/DL (1.8-2.4); POTASSIUM 3.7 MMOL/L (3.6-5.0); SODIUM 137 MMOL/L (135-145)
--- NOTE | 2018-10-20 06:52 | Pulmonary Progress Note ---
Subjective Time Seen by a Provider: 06:31 Subjective/Events-last exam post surgery. Pain is controlled. Family at bedside. Sepsis Event Evaluation Height, Weight, BMI Height: 5'8.00" Weight: 162lbs. 0.0oz. [id number]; 25.1 BMI Method:Stated Exam Exam Vital Signs Date Time Temp Pulse Resp B/P (MAP) Pulse Ox O2 Delivery O2 Flow Rate FiO2 10/20/18 04:00 97.5 109 20 159/79 (105) 91 Vapotherm 60.00 15.00 10/20/18 02:30 94 Vapotherm 15.00 60 10/19/18 23:47 97.5 97 14 166/87 (113) 95 Vapotherm 60.00 15.00 10/19/18 19:56 97.5 98 16 149/80 (103) 98 Vapotherm 10/19/18 19:40 Vapotherm 15.00 60 10/19/18 19:06 97 Vapotherm 15.00 65 10/19/18 16:14 96.9 105 14 160/90 (113) 90 10/19/18 15:41 Vapotherm 15.00 65 10/19/18 12:00 98.0 93 20 147/83 (104) 96 Vapotherm 50.00 15.00 10/19/18 10:05 90 Vapotherm 15.00 50 10/19/18 08:59 97.5 100 20 169/89 (115) 95 Vapotherm 50.00 15.00 10/19/18 08:25 Vapotherm 15.00 50 I & O 10/20/18 07:00 Intake Total 1500 ml Output Total 6025 ml Balance -4525 ml Height & Weight Height: 5'8.00" Weight: 162lbs. 0.0oz. [id number]; 25.1 BMI Method:Stated General Appearance: No Apparent Distress, WD/WN, Chronically ill HEENT: PERRL/EOMI Respiratory: Chest Non Tender, No Accessory Muscle Use, No Respiratory Distress , Crackles, Decreased Breath Sounds Cardiovascular: No Gallop, No JVD, No Murmur, Normal Peripheral Pulses, Systolic Murmur, Irregularly Irregular, Tachycardia Gastrointestinal: normal bowel sounds, non tender, soft, no organomegaly, no pulsatile mass Extremity: Normal Capillary Refill, Normal Inspection, Other (necrosis of right first toe with swelling and ecchymosis that spreads to medial aspect of right midfoot) Neurologic/Psychiatric: Alert, No Motor/Sensory Deficits, Normal Mood/Affect, Disoriented Results Lab Laboratory Tests 10/19/18 05:30 10/20/18 05:07 Assessment/Plan Assessment/Plan Acute Respiratory distress - -Still requiring Vapotherm high flow oxygen Pulmonary edema -Lasix and monitor COPDAE SVNs -advair 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
[2018-10-20] MEDS: ADVAIR HFA 115/21 MCG INHALER 8 GM IH SCH ×2 (07:40→19:51)
[2018-10-20 08:00] VITALS: BP 166/79
[2018-10-20] MEDS: KCL 10 MEQ TAB (MICRO K) PO SCH ×2 (08:42)
[2018-10-20] MEDS: MAGNESIUM 1 GM/100 ML IVPB 100 ML IV SCH ×2 (08:44→09:37)
[2018-10-20] MEDS: PIPERACILLIN SODIUM/TAZOBACTAM 4.5 GM in NS (IVPB) 100 ML IV SCH (08:44)
[2018-10-20] MEDS: ASPIRIN 81 MG CHEW (CHILDREN'S ASA) PO SCH (08:45)
[2018-10-20] MEDS: CLOPIDOGREL 75 MG (PLAVIX) TABLET PO SCH (08:45)
[2018-10-20] MEDS: MAGNESIUM OXIDE (MAG-OX)400 MG TAB PO SCH ×2 (08:46→16:05)
[2018-10-20] MEDS: FUROSEMIDE 40 MG/4 ML INJ (LASIX) IVP SCH (08:50)
--- NOTE | 2018-10-20 09:05 | Anesthesia-General Post-Op ---
General Patient Condition Mental Status/LOC: Same as Preop Cardiovascular: Satisfactory Nausea/Vomiting: Absent Respiratory: Satisfactory Pain: Controlled Complications: Absent Post Op Complications Complications None Follow Up Care/Instructions Patient Instructions None needed. Anesthesia/Patient Condition Patient Condition Patient is doing well, no complaints, stable vital signs, no apparent adverse anesthesia problems. No complications reported per nursing. MARSHA REARDON CRNA Oct 20, 2018 09:05
--- NOTE | 2018-10-20 10:17 | Cardiology Progress Note ---
Subjective Date Seen by Provider: Oct 20, 2018 Time Seen by Provider: 10:11 Subjective/Events-last exam Patient is in bed, complaining of right leg pain, rates it 3 out of 10. Denies any chest pain or dyspnea. Review of Systems General: No Night Sweats, No Fatigue, No Malaise HEENT: No Visual Changes, No Dysphasia Pulmonary: No Dyspnea, No Cough Cardiovascular: No: Chest Pain, Palpitations Gastrointestinal: No: Nausea, Vomiting Genitourinary: No Dysuria, No Frequency Musculoskeletal: No: neck pain, back pain Neurological: No: Weakness, Numbness Objective-Cardiology Exam Last Set of Vital Signs Vital Signs 10/20/18 10/20/18 07:40 08:00 Temp 97.6 Pulse 99 Resp 18 B/P (MAP) 166/79 (108) Pulse Ox 96 O2 Delivery Vapotherm O2 Flow Rate 60.00 15.00 FiO2 60 Capillary Refill : Less Than 3 Seconds I&O Intake and Output 10/20/18 00:00 Intake Total 1220 ml Output Total 5575 ml Balance -4355 ml Intake Oral 520 ml IV Total 700 ml Output Urine Total 5525 ml Estimated Blood Loss 50 ml General: Alert, Oriented X3, Cooperative, Moderate Distress HEENT: Atraumatic, PERRLA Neck: Supple, No Thyromegaly Lungs: Normal Air Movement, Other (bilateral wheezing, rhonchi) Heart: Regular Rate, Normal S1, Normal S2, Other (systolic murmur at the left sternal border) Abdomen: Normal Bowel Sounds, Soft, No Tenderness, No Hepatosplenomegaly, No Masses Extremities: No Clubbing, Other (R BKA dressing C/D/I) Skin: Other (gangrenous foot and wet gangrene on the heel) Neuro: Normal Speech, Normal Tone, Sensation Intact Psych/Mental Status: Mental Status NL, Mood NL Results Lab Laboratory Tests 10/20/18 05:07 A/P-Cardiology Admission Diagnosis Gangrene of toe Peripheral arterial disease Coronary artery disease Hypertension Assessment/Plan Status post acute respiratory failure, better at this time, still on Vapotherm, and continue on IV Lasix and monitor tolerance and response Nonhealing foot ulcer on the first great toe of the right leg for the past 10- 11 months. Severe peripheral arterial disease, underwent unsuccessful intervention to the anterior tibial artery, had atherectomy and balloon angioplasty to the right peroneal and posterior tibial artery, still progressed into full necrosis and gangrene of her right toe, s/p right BKA, POD #1 Anemia, monitored by primary care physician. Transfuse as needed. Coronary artery disease, status post drug-eluting stent deployment using 2 stents to the LAD Promus Premier 3.012 mm and 3.58 mm, done by Dr. Clements. Patient is on aspirin and Plavix. Continue to monitor Aortic stenosis, echocardiogram showed normal LV size and function with ejection fraction 50-55 percent, moderate aortic valve stenosis with valve area 1.0 cm, severe pulmonary hypertension with PA pressure of 50 mmHg. Continue to monitor Patient was on Eliquis, currently in sinus rhythm with frequent APCs. Not sure about her history. currently off Eliquis, maintained on aspirin and Plavix. Continue to monitor Hypertension, continue to monitor blood pressure Hyperlipidemia, maintained on Crestor and Zetia, continue to monitor lipids Moderate bilateral carotid stenosis, diffuse atherosclerotic plaques will need to have workup done in the future regarding her carotids Diabetes mellitus, followed and managed by primary care physician History of heart disease. Clinical Quality Measures DVT/VTE Risk/Contraindication: Risk Factor Score Per Nursin RFS Level Per Nursing on Admit: 4+=Very High FRAN TONY Oct 20, 2018 10:17
[2018-10-20] MEDS: VANCOMYCIN 1,750 MG/NS 500 ML IVPB IV SCH ×2 (10:48)
--- NOTE | 2018-10-20 11:22 | Progress Note-Hospitalist ---
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 Saenz's office. She was sent over for definitive treatment for diabetic foot ulcer with infection and gangrene that was in need of some sort of amputation. He recommended vascular evaluation and would be available to do any type of surgery on the fat when Dr. Tolbert was consulted and knew the patient very well since unsuccessfully performed peripheral revascularization through stent and intervention who then was referred to [facility] who could not be successful at the intervention either so a right below the knee amputation was recommended by multiple physicians and Dr. Garcia so recommended general surgery to perform this since it was above the ankle for his podiatry specialty. Patient is a very poor historian she obviously has some sort of memory deficit versus dementia and I obtained most of the information by reviewing her home medication. At this current time patient does report pain but she has had some side effects from pain medication in the past that makes her sleep walk and become confused. I spoke with who will see her in consultation for bloody stools that she is reporting and arrange for right below the knee amputation on Thursday. Subjective/Events-last exam Patient had an uneventful right below the knee amputation and she reports the pain is improved and she is feeling much better Spoke with the son at the bedside who lives in [place] and will be going home today but once 24 7 nursing facility placement but likely will need rehabilitation to navigate activities of daily living and then ultimately go to some sort of 24 7 facility Patient is groggy but no change in her memory deficit Reviewed labs No BM for 3 days so we'll initiate aggressive treatment Pain control is paramount Review of Systems General: Fatigue Objective Exam Vital Signs Vital Signs Date Time Temp Pulse Resp B/P (MAP) Pulse Ox O2 Delivery O2 Flow Rate FiO2 10/20/18 08:00 Vapotherm 15.00 60 10/20/18 08:00 97.6 99 18 166/79 (108) 96 Capillary Refill : Less Than 3 Seconds General Appearance: No Apparent Distress, WD/WN, Chronically ill Respiratory: Chest Non Tender, Lungs Clear, Normal Breath Sounds, No Accessory Muscle Use, No Respiratory Distress, Decreased Breath Sounds Cardiovascular: Regular Rate, Rhythm, No Edema, No Gallop, No JVD, No Murmur, Normal Peripheral Pulses Extremity: Other (Right below the knee amputation dressing in place) Neurologic/Psychiatric: Alert, Oriented x3, No Motor/Sensory Deficits, Normal Mood/Affect Results/Procedures Lab Laboratory Tests 10/20/18 05:07 Patient resulted labs reviewed. Assessment/Plan Assessment and Plan Assess & Plan/Chief Complaint Assessment: Acute respiratory insufficiency due to exacerbation of congestive heart failure with volume overload given Lasix IV and placed in ICU with close monitoring and pulmonology consultation now on the floor today Right acute infected diabetic ulcer of the right foot with gangrene in need of below the knee amputation due to unsuccessful intervention for vascular compromise status post uncomplicated amputation postop day #1 Chronic atrial fibrillation on anticoagulation holding for surgery but on DVT prophylaxis with Lovenox and meantime CAD w/stent placed 08/29 so must remain on antiplatelet meds Valvular heart disease with systolic murmur Hypertension Diabetes mellitus Hyperlipidemia Anemia iron def Bloody stools consulting general surgery Hypothyroidism Dementia DNR Constipation Plan: Hep-locked IV fluid DC abx Lovenox DVT prophylaxis Maintain antiplatelet agents due to recent stent placed August of this year by Dr. Tolbert Iron infusion DNR Inpatient rehabilitation then some sort of assisted living facility after that Diagnosis/Problems Diagnosis/Problems (1) Amputation of right lower extremity below knee Status: Acute (2) Gangrene of right foot Status: Acute (3) Respiratory insufficiency Status: Resolved Resolution Date/Time: 10/19/18 @ 10:06 (4) Tachypnea Status: Resolved Resolution Date/Time: 10/19/18 @ 10:06 (5) Hypoxemia Status: Chronic (6) Diabetes mellitus Status: Chronic Qualifiers: Diabetes mellitus type: type 2 Diabetes mellitus intermediate frame tender insulin use: with intermediate frame tender use Diabetes mellitus complication status: with circulatory complication Diabetes mellitus complication detail: with other circulatory complications Qualified Codes: E11.59 - Type 2 diabetes mellitus with other circulatory complications; Z79.4 - alf (current) use of insulin (7) Atrial fibrillation Status: Chronic Qualifiers: Atrial fibrillation type: chronic Qualified Codes: I48.2 - Chronic atrial fibrillation (8) Hypertension Status: Chronic Qualifiers: Hypertension type: essential hypertension Qualified Codes: I10 - Essential (primary) hypertension (9) Hyperlipemia Status: Chronic Qualifiers: Hyperlipidemia type: mixed hyperlipidemia Qualified Codes: E78.2 - Mixed hyperlipidemia (10) Hypothyroidism Status: Chronic Qualifiers: Hypothyroidism type: acquired Qualified Codes: E03.9 - Hypothyroidism, unspecified (11) Anemia Status: Acute Qualifiers: Anemia type: iron deficiency Iron deficiency anemia type: chronic blood loss Qualified Codes: D50.0 - Iron deficiency anemia secondary to blood loss ( chronic) (12) Melena Status: Acute (13) COPD (chronic obstructive pulmonary disease) Status: Chronic Qualifiers: COPD type: unspecified COPD Qualified Codes: J44.9 - Chronic obstructive pulmonary disease, unspecified (14) CHF (congestive heart failure) Status: Chronic Qualifiers: Heart failure type: unspecified Heart failure chronicity: unspecified Qualified Codes: I50.9 - Heart failure, unspecified (15) Right foot ulcer Status: Acute Qualifiers: Non-pressure ulcer stage: with necrosis of bone Qualified Codes: L97.514 - Non-pressure chronic ulcer of other part of right foot with necrosis of bone (16) Presence of stent in coronary artery in patient with coronary artery disease Status: Chronic Clinical Quality Measures DVT/VTE Risk/Contraindication: Risk Factor Score Per Nursin RFS Level Per Nursing on Admit: 4+=Very High CHUCK NAVA DO Oct 20, 2018 11:22
[2018-10-20 12:00] VITALS: BP 150/72
[2018-10-20] MEDS: IRON SUCROSE 200 MG/10 ML (VENOFER) VIAL IV SCH (12:49)
--- NOTE | 2018-10-20 13:43 | Cardiology Progress Note ---
Subjective Date Seen by Provider: Oct 20, 2018 Time Seen by Provider: 13:42 Subjective/Events-last exam patient is laying down in bed, still having pain at the amputation site Review of Systems General: No Chills, No Night Sweats, No Fatigue, No Malaise, No Appetite, No Other HEENT: No Head Aches, No Visual Changes, No Eye Pain, No Ear Pain, No Dysphasia , No Sinus Congestion, No Post Nasal Drip, No Sore Throat, No Other Pulmonary: No Dyspnea, No Cough, No Pleuritic Chest Pain, No Other Cardiovascular: No: Chest Pain, Palpitations, Orthopnea, Paroxysmal Noc. Dyspnea, Edema, Lt Headedness, Other Objective-Cardiology Exam Last Set of Vital Signs Vital Signs 10/20/18 08:00 Temp 97.6 Pulse 99 Resp 18 B/P (MAP) 166/79 (108) Pulse Ox 96 O2 Delivery Vapotherm O2 Flow Rate 15.00 FiO2 60 Capillary Refill : Less Than 3 Seconds I&O Intake and Output 10/20/18 00:00 Intake Total 1220 ml Output Total 5575 ml Balance -4355 ml Intake Oral 520 ml IV Total 700 ml Output Urine Total 5525 ml Estimated Blood Loss 50 ml General: Alert, Oriented X3, Cooperative, Moderate Distress HEENT: Atraumatic, PERRLA Neck: Supple, No Thyromegaly Lungs: Normal Air Movement, Other (bilateral wheezing, rhonchi) Heart: Regular Rate, Normal S1, Normal S2, Other (systolic murmur at the left sternal border) Abdomen: Normal Bowel Sounds, Soft, No Tenderness, No Hepatosplenomegaly, No Masses Extremities: No Clubbing, Other (R BKA dressing C/D/I) Skin: No Breakdown, Other (status post right BKA) Neuro: Normal Speech, Normal Tone, Sensation Intact Psych/Mental Status: Mental Status NL, Mood NL Results Lab Laboratory Tests 10/20/18 05:07 A/P-Cardiology Admission Diagnosis Gangrene of toe Peripheral arterial disease Coronary artery disease Hypertension Assessment/Plan Status post acute respiratory failure, better at this time, continue to monitor 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 Continue to monitor Anemia, monitored by primary care physician. Transfuse as needed. Coronary artery disease, status post drug-eluting stent deployment using 2 stents to the LAD Promus Premier 3.012 mm and 3.58 mm, done by Dr. Clements. Patient is on aspirin and Plavix. Continue to monitor Aortic stenosis, echocardiogram showed normal LV size and function with ejection fraction 50-55 percent, moderate aortic valve stenosis with valve area 1.0 cm, severe pulmonary hypertension with PA pressure of 50 mmHg. Continue to monitor Patient was on Eliquis, currently in sinus rhythm with frequent APCs. Not sure about her history. currently off Eliquis, maintained on aspirin and Plavix. Continue to monitor Hypertension, continue to monitor blood pressure Hyperlipidemia, maintained on Crestor and Zetia, continue to monitor lipids Moderate bilateral carotid stenosis, diffuse atherosclerotic plaques will need to have workup done in the future regarding her carotids Diabetes mellitus, followed and managed by primary care physician History of heart disease. Clinical Quality Measures DVT/VTE Risk/Contraindication: Risk Factor Score Per Nursin RFS Level Per Nursing on Admit: 4+=Very High GURWINDER CHINCHILLA MD Oct 20, 2018 13:43
[2018-10-20] MEDS ORDERED: LACTULOSE SYRUP 10GM/15ML (ENULOSE) 30ML UDC PO PRN (13:45)
[2018-10-20] MEDS: POLYETHYLENE GLYCOL 17 GM (MIRALAX) PACK PO SCH ×2 (14:12→20:19)
[2018-10-20] MEDS: SENNA W/DOCUSATE (SENOKOT S) TABLET PO SCH ×2 (14:12→20:18)
--- NOTE | 2018-10-20 14:35 | Progress Note ---
Subjective Time Seen by a Provider: 11:58 Subjective/Events-last exam Pt seen and examined, states pain is controlled and she's tolerating diet. Review of Systems General: No Chills, No Night Sweats Pulmonary: No Dyspnea, No Cough Cardiovascular: No: Chest Pain, Palpitations Objective Exam Vital Signs Date Time Temp Pulse Resp B/P (MAP) Pulse Ox O2 Delivery O2 Flow Rate FiO2 10/20/18 12:00 98.4 86 18 150/72 (98) 95 Vapotherm 60.00 15.00 10/20/18 08:00 Vapotherm 15.00 60 10/20/18 08:00 97.6 99 18 166/79 (108) 96 Vapotherm 60.00 15.00 10/20/18 07:40 96 Vapotherm 15.00 60 10/20/18 04:00 97.5 109 20 159/79 (105) 91 Vapotherm 60.00 15.00 10/20/18 02:30 94 Vapotherm 15.00 60 10/19/18 23:47 97.5 97 14 166/87 (113) 95 Vapotherm 60.00 15.00 10/19/18 19:56 97.5 98 16 149/80 (103) 98 Vapotherm 10/19/18 19:40 Vapotherm 15.00 60 10/19/18 19:06 97 Vapotherm 15.00 65 10/19/18 16:14 96.9 105 14 160/90 (113) 90 10/19/18 15:41 Vapotherm 15.00 65 I & O 10/20/18 07:00 Intake Total 1500 ml Output Total 6025 ml Balance -4525 ml Capillary Refill : Less Than 3 Seconds General Appearance: No Apparent Distress, Chronically ill HEENT: PERRL/EOMI Respiratory: Chest Non Tender, Lungs Clear, Normal Breath Sounds, No Accessory Muscle Use, No Respiratory Distress Cardiovascular: Regular Rate, Rhythm, No Edema, Systolic Murmur Extremity: Other (Right below the knee amputation dressing in place) Results Lab Laboratory Tests 10/19/18 15:38: Glucometer 208H 10/19/18 19:54: Glucometer 176H 10/19/18 23:52: Glucometer 232H 10/20/18 04:01: Glucometer 122H 10/20/18 05:07: White Blood Count 16.0H, Red Blood Count 3.00L, Hemoglobin 8.9L, Hematocrit 28L , Mean Corpuscular Volume 95, Mean Corpuscular Hemoglobin 30, Mean Corpuscular Hemoglobin Concent 31L, Red Cell Distribution Width 15.5H, Platelet Count 633H, Mean Platelet Volume 9.0, Neutrophils (%) (Auto) 83H, Lymphocytes (%) (Auto) 6L , Monocytes (%) (Auto) 10, Eosinophils (%) (Auto) 0, Basophils (%) (Auto) 0, Neutrophils # (Auto) 13.3H, Lymphocytes # (Auto) 0.9L, Monocytes # (Auto) 1.7H, Eosinophils # (Auto) 0.1, Basophils # (Auto) 0.0, Neutrophils % (Manual) 86, Lymphocytes % (Manual) 7, Monocytes % (Manual) 4, Eosinophils % (Manual) 0, Basophils % (Manual) 0, Band Neutrophils 3, Toxic Granulation 1+, Hypochromasia SLIGHT, Poikilocytosis SLIGHT, Anisocytosis SLIGHT, Elliptocytes SLIGHT, Sodium Level 137, Potassium Level 3.7, Chloride Level 94L, Carbon Dioxide Level 30, Anion Gap 13, Blood Urea Nitrogen 13, Creatinine 0.71, Estimat Glomerular Filtration Rate > 60, BUN/Creatinine Ratio 18, Glucose Level 156H, Calcium Level 9.2, Phosphorus Level 3.0, Magnesium Level 1.4L 10/20/18 08:30: Glucometer 205H 10/20/18 12:04: Glucometer 181H Microbiology 10/15/18 MRSA Screen - Final, Complete MRSA not isolated Assessment/Plan Assessment/Plan Assessment/Plan S/P Right BKA for Gangrene Anemia GI Bleed CAD, DM, HTN Pt is doing very well, pain controlled and Hg stable. Will leave dressing in place (it is holding pressure) and take down tomorrow. Clinical Quality Measures DVT/VTE Risk/Contraindication: Risk Factor Score Per Nursin RFS Level Per Nursing on Admit: 4+=Very High KIKE JACOBO DO Oct 20, 2018 14:35
--- NOTE | 2018-10-20 15:34 | NUR ---
Pastoral Care Visit.
[2018-10-20 16:10] VITALS: BP 146/65
[2018-10-20 19:57] VITALS: BP 146/83
[2018-10-20] MEDS: NORTRIPTYLINE 25 MG (PAMELOR) CAP PO SCH (20:18)
[2018-10-20] MEDS: ALPRAZolam 0.25 MG (XANAX) TAB PO PRN (20:18)
[2018-10-20] MEDS: amLODIPine 5 MG (NORVASC) TAB PO SCH (20:18)
[2018-10-20] MEDS: lisINopril 5 MG (PRINIVIL) TABLET PO SCH (20:18)
[2018-10-21] VITALS (7 sets, daily range): BP systolic 136–162; BP diastolic 72–83
[2018-10-21] MEDS: inSUlin ASPART (NovoLOG) 1 UNIT/0.01 ML (CHARGE PER UNIT) SC SCH ×7 (00:48→23:41)
--- NOTE | 2018-10-21 02:51 | OPERATIVE REPORT ---
DATE OF SERVICE: 10/19/2018 PREOPERATIVE DIAGNOSIS: Wet gangrene right foot. POSTOPERATIVE DIAGNOSIS: Wet gangrene right foot, pending pathology. PROCEDURE: Right below the knee amputation. SURGEON: Kike Garcia DO. SATURATOR TENDER: Ran Barnett DO. ANESTHESIA: General endotracheal tube. BLOOD LOSS: Less than 50 mL. FLUIDS: Per anesthesia. POSTOPERATIVE CONDITION: Stable. INDICATION FOR PROCEDURE: The patient is an 82-year-old female who has a wet gangrene and severe pain in the right foot, not controlled and she usually gets this taken care of to control her pain. FINDINGS: The patient had a right below the knee amputation performed, sent to pathology. PROCEDURE NOTE: After informed consent was obtained, the patient was brought to the operating room, placed on the table in supine position. A tourniquet was placed on the right thigh. She was then sterilely prepped and draped in normal fashion. Dell a skin flaps on the skin below the knee, about six inches below the knee and then using #10 blade, I made an incision along the skin incisions then down to the skin into subcutaneous tissue with Bovie electrocautery down to the muscle, turned the tourniquet on and then started going through the muscle laterally as well as medially going down to the tibia out toward the fibula and then down around the incision on the back of the leg then used the power saw to go through the tibia and shaped it a little bit inferior to superior to help with the flap, identified the large veins and arteries. These were tied off with 0 Vicryl came through the muscle, left little bit of muscle to come over the flap to protect the bone and the skin. Took off the fibula just a little bit about 3 or 4 cm higher than the tibia had been taken off. Let down the tourniquet found a couple of bleeders. These were controlled with more 0 Vicryl ties and then at this point elected to close the incision, sutured some of the muscle up over the tibial portion of the tibia with 0 Vicryl suture. Trimmed off some of the muscle to be able to finish this and then brought the 2 skin edges together started down with a #1 Prolene interrupted sutures and some vertical mattress sutures to close the skin together. It closed nicely and then used about 7 or 8 of these sutures and then in between used macho. Good closure. No bleeding at end of the case. It was then Xeroform, and then a fluff dressing placed and then an Osvaldo wrap and elastic tape to hold pressure on this area. The patient tolerated procedure. She was transferred to recovery room in stable condition. Sponge, instrument and needle counts correct at the end of the case. Dr. Barnett assisted in this case helping to make incisions, identifying anatomy, helping to close the incision as well as helping in the cut off portion of the bone with the saw. Job ID: [id number] DocumentID: [id number] Dictated Date: 10/20/2018 14:49:25 Communication Engineer Date: 10/21/2018 01:25:48 Dictated By: KIKE GARCIA DO
[2018-10-21] MEDS: RT-ALBUTEROL/IPRATROPIUM 3 ML (DUONEB) VIAL INH SCH ×3 (02:55→20:00)
[2018-10-21] MEDS: HYDROcodone/APAP 5 MG/325 MG (LORTAB) TAB PO PRN ×3 (03:17→12:35)
[2018-10-21 05:07] LABS: BASOPHILS % (AUTO) 0 % (0-10); EOSINOPHILS % (AUTO) 0 % (0-10); HEMATOCRIT 26 % (35-52); HEMOGLOBIN 8.5 G/DL (11.5-16.0); LYMPHOCYTES # (AUTO) 1.2 X 10^3 (1.0-4.0); LYMPHOCYTES % (AUTO) 9 % (12-44); MEAN CORPUSCULAR HEMOGLOBIN 30 PG (25-34); MEAN CORPUSCULAR HGB CONC 32 G/DL (32-36); MEAN CORPUSCULAR VOLUME 94 FL (80-99); MEAN PLATELET VOLUME 8.8 FL (7.4-10.4); MONOCYTES # (AUTO) 1.5 X 10^3 (0.0-1.0); MONOCYTES % (AUTO) 11 % (0-12); NEUTROPHILS # (AUTO) 10.8 X 10^3 (1.8-7.8); NEUTROPHILS % (AUTO) 80 % (42-75); PLATELET COUNT 562 10^3/uL (130-400); RED CELL DISTRIBUTION WIDTH 15.5 % (10.0-14.5); WHITE BLOOD COUNT 13.5 10^3/uL (4.3-11.0)
[2018-10-21 05:30] LABS: BUN/CREATININE RATIO 19; CALCIUM 8.8 MG/DL (8.5-10.1); CARBON DIOXIDE 32 MMOL/L (21-32); CHLORIDE 94 MMOL/L (98-107); CREATININE SERUM 0.69 MG/DL (0.60-1.30); GFR ESTIMATED > 60; GLUCOSE 187 MG/DL (70-105); PHOSPHORUS 2.7 MG/DL (2.3-4.7); POTASSIUM 3.6 MMOL/L (3.6-5.0); SODIUM 136 MMOL/L (135-145)
[2018-10-21] MEDS: PANTOPRAZOLE 40 MG (PROTONIX) TAB PO SCH (06:16)
[2018-10-21] MEDS: LEVOTHYROXINE 50 MCG (LEVOTHROID) TAB PO SCH (06:16)
[2018-10-21] MEDS: KCL 10 MEQ TAB (MICRO K) PO SCH ×2 (06:16→06:17)
--- NOTE | 2018-10-21 06:38 | Pulmonary Progress Note ---
Subjective Time Seen by a Provider: 06:32 Subjective/Events-last exam No complications noted. Sepsis Event Evaluation Height, Weight, BMI Height: 5'8.00" Weight: 165lbs. 6.4oz. [id number]; 25.1 BMI Method:Stated Exam Exam Vital Signs Date Time Temp Pulse Resp B/P (MAP) Pulse Ox O2 Delivery O2 Flow Rate FiO2 10/21/18 04:14 99.0 100 18 137/72 (93) 94 Vapotherm 50.00 15.00 10/21/18 02:56 90 Vapotherm 15.00 50 10/21/18 01:10 98.4 102 20 137/79 (98) 95 Vapotherm 50.00 15.00 10/21/18 00:21 98.4 102 20 137/79 (98) 95 Vapotherm 50.00 15.00 10/20/18 20:15 Vapotherm 15.00 50 10/20/18 19:57 99.9 100 22 146/83 (104) 94 Vapotherm 50.00 15.00 10/20/18 19:53 94 Vapotherm 15.00 50 10/20/18 16:10 98.8 107 20 146/65 (92) 96 Vapotherm 60.00 15.00 10/20/18 14:46 93 Vapotherm 15.00 60 10/20/18 12:00 98.4 86 18 150/72 (98) 95 Vapotherm 60.00 15.00 10/20/18 08:00 Vapotherm 15.00 60 10/20/18 08:00 97.6 99 18 166/79 (108) 96 Vapotherm 60.00 15.00 10/20/18 07:40 96 Vapotherm 15.00 60 I & O 10/21/18 07:00 Intake Total 2557 ml Output Total 2125 ml Balance 432 ml Height & Weight Height: 5'8.00" Weight: 165lbs. 6.4oz. 75.047474cw; 25.1 BMI Method:Stated General Appearance: No Apparent Distress, WD/WN, Chronically ill HEENT: PERRL/EOMI Respiratory: Chest Non Tender, No Accessory Muscle Use, No Respiratory Distress , Crackles, Decreased Breath Sounds Cardiovascular: No Gallop, No JVD, No Murmur, Normal Peripheral Pulses, Systolic Murmur, Irregularly Irregular, Tachycardia Gastrointestinal: normal bowel sounds, non tender, soft, no organomegaly, no pulsatile mass Extremity: Normal Capillary Refill, Normal Inspection, Other (necrosis of right first toe with swelling and ecchymosis that spreads to medial aspect of right midfoot) Neurologic/Psychiatric: Alert, No Motor/Sensory Deficits, Normal Mood/Affect, Disoriented Results Lab Laboratory Tests 10/20/18 05:07 10/21/18 05:00 Assessment/Plan Assessment/Plan Acute on chronic respiratory failure -Still requiring Vapotherm high flow oxygen -repeat CXR -repeat BNP -Lasix 40mg daily Pulmonary edema -Lasix and monitor COPDAE SVNs -advair Gangrene 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
--- NOTE | 2018-10-21 07:09 | Cardiology Progress Note ---
Subjective Date Seen by Provider: Oct 21, 2018 Time Seen by Provider: 07:08 Subjective/Events-last exam Patient is in bed, feeling better, still having generalized fatigue and weakness Review of Systems General: No Chills, No Night Sweats; Fatigue, Malaise; No Appetite, No Other HEENT: No Head Aches, No Visual Changes, No Eye Pain, No Ear Pain, No Dysphasia , No Sinus Congestion, No Post Nasal Drip, No Sore Throat, No Other Pulmonary: No Dyspnea, No Cough, No Pleuritic Chest Pain, No Other Cardiovascular: No: Chest Pain, Palpitations, Orthopnea, Paroxysmal Noc. Dyspnea, Edema, Lt Headedness, Other Objective-Cardiology Exam Last Set of Vital Signs Vital Signs 10/21/18 10/21/18 02:56 04:14 Temp 99.0 Pulse 100 Resp 18 B/P (MAP) 137/72 (93) Pulse Ox 94 O2 Delivery Vapotherm O2 Flow Rate 50.00 15.00 FiO2 50 Capillary Refill : Less Than 3 Seconds I&O Intake and Output 10/21/18 00:00 Intake Total 2757 ml Output Total 2825 ml Balance -68 ml Intake Oral 1840 ml IV Total 917 ml Output Urine Total 2825 ml General: Alert, Oriented X3, Cooperative, Moderate Distress HEENT: Atraumatic, PERRLA Neck: Supple, No Thyromegaly Lungs: Normal Air Movement, Other (bilateral wheezing, rhonchi) Heart: Regular Rate, Normal S1, Normal S2, Other (systolic murmur at the left sternal border) Abdomen: Normal Bowel Sounds, Soft, No Tenderness, No Hepatosplenomegaly, No Masses Extremities: No Clubbing, Other (R BKA dressing C/D/I) Skin: No Breakdown, Other (status post right BKA) Neuro: Normal Speech, Normal Tone, Sensation Intact Psych/Mental Status: Mental Status NL, Mood NL Results Lab Laboratory Tests 10/21/18 05:00 A/P-Cardiology Admission Diagnosis Gangrene of toe Peripheral arterial disease Coronary artery disease Hypertension Assessment/Plan Status post acute respiratory failure, better at this time, continue to monitor 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 Continue to monitor Anemia, monitored by primary care physician. Transfuse as needed. Coronary artery disease, status post drug-eluting stent deployment using 2 stents to the LAD Promus Premier 3.012 mm and 3.58 mm, done by Dr. Clements. Patient is on aspirin and Plavix. Continue to monitor Aortic stenosis, echocardiogram showed normal LV size and function with ejection fraction 50-55 percent, moderate aortic valve stenosis with valve area 1.0 cm, severe pulmonary hypertension with PA pressure of 50 mmHg. Continue to monitor Patient was on Eliquis, currently in sinus rhythm with frequent APCs. Not sure about her history. currently off Eliquis, maintained on aspirin and Plavix. Continue to monitor Hypertension, continue to monitor blood pressure Hyperlipidemia, maintained on Crestor and Zetia, continue to monitor lipids Moderate bilateral carotid stenosis, diffuse atherosclerotic plaques will need to have workup done in the future regarding her carotids Diabetes mellitus, followed and managed by primary care physician History of heart disease. Clinical Quality Measures DVT/VTE Risk/Contraindication: Risk Factor Score Per Nursin RFS Level Per Nursing on Admit: 4+=Very High GURWINDER CHINCHILLA MD Oct 21, 2018 07:09
[2018-10-21] MEDS: MAGNESIUM OXIDE (MAG-OX)400 MG TAB PO SCH ×2 (08:49→16:31)
[2018-10-21] MEDS: ASPIRIN 81 MG CHEW (CHILDREN'S ASA) PO SCH (08:50)
[2018-10-21] MEDS: CLOPIDOGREL 75 MG (PLAVIX) TABLET PO SCH (08:50)
[2018-10-21] MEDS: SENNA W/DOCUSATE (SENOKOT S) TABLET PO SCH ×2 (08:50→19:27)
[2018-10-21] MEDS: FUROSEMIDE 40 MG/4 ML INJ (LASIX) IVP SCH (08:52)
[2018-10-21] MEDS: POLYETHYLENE GLYCOL 17 GM (MIRALAX) PACK PO SCH ×2 (08:52→19:28)
--- NOTE | 2018-10-21 10:12 | Progress Note-Hospitalist ---
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 Saenz's office. She was sent over for definitive treatment for diabetic foot ulcer with infection and gangrene that was in need of some sort of amputation. He recommended vascular evaluation and would be available to do any type of surgery on the fat when Dr. Tolbert was consulted and knew the patient very well since unsuccessfully performed peripheral revascularization through stent and intervention who then was referred to [facility] who could not be successful at the intervention either so a right below the knee amputation was recommended by multiple physicians and Dr. Garcia so recommended general surgery to perform this since it was above the ankle for his podiatry specialty. Patient is a very poor historian she obviously has some sort of memory deficit versus dementia and I obtained most of the information by reviewing her home medication. At this current time patient does report pain but she has had some side effects from pain medication in the past that makes her sleep walk and become confused. I spoke with who will see her in consultation for bloody stools that she is reporting and arrange for right below the knee amputation on Thursday. Subjective/Events-last exam Patient continues to have an issue with right leg pain since right below the knee amputation Inpatient rehabilitation eval Physical therapy and occupational therapy will be ordered to evaluate criteria for inpatient rehabilitation tomorrow Off of antibiotics Completing IV iron Periodically on high flow oxygen versus Vapotherm Overall patient appears to be stable and has undergone the amputation and remained stable No bowel movement yet after multiple meds given so we will give suppository and/ or Fleet's enema Review of Systems General: Fatigue Pulmonary: Dyspnea Gastrointestinal: Constipation Objective Exam Vital Signs Vital Signs Date Time Temp Pulse Resp B/P (MAP) Pulse Ox O2 Delivery O2 Flow Rate FiO2 10/21/18 08:37 96.0 99 16 147/83 (104) 92 Vapotherm 50.00 15.00 10/21/18 08:00 50 Capillary Refill : Less Than 3 Seconds General Appearance: No Apparent Distress, WD/WN, Chronically ill Respiratory: Chest Non Tender, Normal Breath Sounds, No Accessory Muscle Use, No Respiratory Distress, Crackles Cardiovascular: Regular Rate, Rhythm, No Edema, No Gallop, No JVD, Normal Peripheral Pulses, Systolic Murmur Neurologic/Psychiatric: Alert, Oriented x3, No Motor/Sensory Deficits, Normal Mood/Affect, Disoriented Results/Procedures Lab Laboratory Tests 10/21/18 05:00 Patient resulted labs reviewed. Assessment/Plan Assessment and Plan Assess & Plan/Chief Complaint Assessment: Acute respiratory insufficiency due to exacerbation of congestive heart failure with volume overload given Lasix IV and placed in ICU with close monitoring and pulmonology consultation then transferred to floor Right acute infected diabetic ulcer of the right foot with gangrene in need of below the knee amputation due to unsuccessful intervention for vascular compromise status post uncomplicated amputation postop day #2 Chronic atrial fibrillation on anticoagulation holding for surgery but on DVT prophylaxis with Lovenox and meantime CAD w/stent placed 08/29 so must remain on antiplatelet meds Valvular heart disease with systolic murmur Hypertension Diabetes mellitus Hyperlipidemia Anemia iron def Bloody stools consulting general surgery Hypothyroidism Dementia DNR Constipation Plan: Hep-locked IV fluid DC abx Lovenox DVT prophylaxis Maintain antiplatelet agents due to recent stent placed August of this year by Dr. Tolbert Iron infusion DNR Inpatient rehabilitation then some sort of assisted living facility after that BM treatment Diagnosis/Problems Diagnosis/Problems (1) Amputation of right lower extremity below knee Status: Acute (2) Gangrene of right foot Status: Resolved Resolution Date/Time: 10/21/18 @ 11:01 (3) Respiratory insufficiency Status: Resolved Resolution Date/Time: 10/19/18 @ 10:06 (4) Tachypnea Status: Resolved Resolution Date/Time: 10/19/18 @ 10:06 (5) Hypoxemia Status: Chronic (6) Diabetes mellitus Status: Chronic Qualifiers: Diabetes mellitus type: type 2 Diabetes mellitus terminal clerk insulin use: with terminal clerk use Diabetes mellitus complication status: with circulatory complication Diabetes mellitus complication detail: with other circulatory complications Qualified Codes: E11.59 - Type 2 diabetes mellitus with other circulatory complications; Z79.4 - [facility] (current) use of insulin (7) Atrial fibrillation Status: Chronic Qualifiers: Atrial fibrillation type: chronic Qualified Codes: I48.2 - Chronic atrial fibrillation (8) Hypertension Status: Chronic Qualifiers: Hypertension type: essential hypertension Qualified Codes: I10 - Essential (primary) hypertension (9) Hyperlipemia Status: Chronic Qualifiers: Hyperlipidemia type: mixed hyperlipidemia Qualified Codes: E78.2 - Mixed hyperlipidemia (10) Hypothyroidism Status: Chronic Qualifiers: Hypothyroidism type: acquired Qualified Codes: E03.9 - Hypothyroidism, unspecified (11) Anemia Status: Acute Qualifiers: Anemia type: iron deficiency Iron deficiency anemia type: chronic blood loss Qualified Codes: D50.0 - Iron deficiency anemia secondary to blood loss ( chronic) (12) Melena Status: Acute (13) COPD (chronic obstructive pulmonary disease) Status: Chronic Qualifiers: COPD type: unspecified COPD Qualified Codes: J44.9 - Chronic obstructive pulmonary disease, unspecified (14) CHF (congestive heart failure) Status: Chronic Qualifiers: Heart failure type: unspecified Heart failure chronicity: unspecified Qualified Codes: I50.9 - Heart failure, unspecified (15) Right foot ulcer Status: Resolved Qualifiers: Non-pressure ulcer stage: with necrosis of bone Qualified Codes: L97.514 - Non-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
--- NOTE | 2018-10-21 11:40 | Physical Therapy Evaluation ---
PT Evaluation-General Medical Diagnosis Admission Date Oct 14, 2018 at 09:11 Medical Diagnosis: right foot infection/respiratory distress Onset Date: Oct 14, 2018 Therapy Diagnosis Therapy Diagnosis: severe debility/weakness Height/Weight Height (Feet): 5 Height (Inches): 8.00 Weight (Pounds): 165 Weight (Ounces): 6.4 Precautions Precautions/Isolations: Contact Isolation Weight Bear Status Left Lower Extremity: Left Full Weight Bearing Referral Physician: Sola Reason for Referral: Evaluation/Treatment Medical History Pertinent Medical History: CAD, COPD, DM, Dementia, HTN, Hypothroidism, Neuropathy Current History s/p right BKA 10/19/18 Reviewed History: Yes Social History Home: Single Level Current Living Status: Children Entry Into Home: Ramp Prior/Core FIM Prior Level of Function Therapy Code Descriptions/Definitions Functional Gila Measure: 0=Not Assessed/NA 4=Minimal Assistance 1=Total Assistance 5=Supervision or Setup 2=Maximal Assistance 6=Modified Gila 3=Moderate Assistance 7=Complete Gila Therapy Quality Codes: 6 Independent with activity with or without an assistive device 5 Patient requires set up or clean up by helper. Patient completes activity by themselves 4 Supervision or touching assist (CGA). Gunter provide cues , steadying assist 3 The helper provides less than half the effort to complete the activity 2 The helper provides more than half the effort to complete the activity 1 Dependent. The helper does all the effort to complete an activity 7 Patient refused to complete or attempt activity 9 The patient did not perform the activity before the current illness or injury 88 Not attempted due to Medical conditions or safety concerns Functional Abilities and Goals: Independent: Patient completed the activities by him/herself, with or without an assistive device, with no assistance from a helper. Needed Some Help: Patient needed partial assistance from another person to complete activities. Dependent: A helper completed the activities for the patient. Unknown: Not Applicable: Bed Mobility: 6 Transfers (B,C,W/C) (FIM): 6 Gait: 6 Indoor Mobility (Ambulation): Independent Stairs: Independent Prior Devices Use: Other-see list below Prior Device Use: 4WW PT Evaluation-Current Subjective Patient reports 10/10 right BKA pain with meds issued. Pain Numeric Pain Scale: 10-Worst Possible Pain Location: Right Location Body Site: Generalized (stump) Pain Description: Pressure, Acute, Throbbing Objective Patient Orientation: Person, Time, Situation Problem Solving: Fair Attachments: Oxygen (vapotherm), Wagner Catheter ROM/Strength ROM Lower Extremities right knee flexion/extension limited secondary to pain/left LE WFL Strength Lower Extremities right LE NT/left LE 3-/5 grossly Integumentary/Posture Integumentary refer to nursing notes Bladder Incontinence: Wagner Cath Posture trunk flexed posture with attempt to stand Neuromuscular (Tone, Coordination, Reflexes) diminished with all secondary to severely diminished proprioception Sensory Vision: Functional Hearing: Functional Sensation Right Lower Extremit: Impaired Sensation Left Lower Extremity: Impaired Transfers Therapy Code Descriptions/Definitions Functional Gila Measure: 0=Not Assessed/NA 4=Minimal Assistance 1=Total Assistance 5=Supervision or Setup 2=Maximal Assistance 6=Modified Gila 3=Moderate Assistance 7=Complete Gila Transfers (B, C, W/C) (FIM): 1 Scootin Rollin Supine to/from Sit: 1 Sit to/from Stand: 1 bed t/f WC(FIM only if WC use): 1 attempted to perform sit to stand to FWW, however, patient unable to perform requiring dependent assist x 2 with all mobility Balance Sitting Static: Fair Sitting Dynamic: Fair Standing Static: Poor Standing Dynamic: Poor Assessment/Needs 82 y.o. female, will benefit from skilled PT to address functional strength and mobility. Patient is recent right BKA and appears to limit self due to pain. Patient ceases treatment after up in recliner. Rehab Potential: Guarded Post Rehab Potential-Barriers: compliance PT Auto Inspection Specialist Goals Custodial Goals PT Custodial Goals Time Frame: Nov 06, 2018 Transfers (B,C,W/C) (FIM): 3 Wheelchair (FIM): 1 Wheelchair distance (FIM): 1=up to 49 ft Distance: 45' Wheelchair Level of Assist: 4 PT Plan Problem List Problem List: Activity Tolerance, Functional Strength, Safety, Balance, Gait, Transfer, Bed Mobility, ROM Treatment/Plan Treatment Plan: Continue Plan of Care Treatment Plan: Bed Mobility, Education, Functional Activity Andrzej, Functional Strength, Gait, Safety, Therapeutic Exercise, Transfers Treatment Duration: Nov 06, 2018 Frequency: 6 times per week (increase to 11/wk when able to tolerate) Estimated Hrs Per Day: .5 hour per day Patient and/or Family Agrees t: Yes Discharge Recommendations Therapy D/C Recommendations: [facility] Placement, Intermediate (TCU/NH) Time/GCodes Time In: 1110 Time Out: 1130 Total Billed Treatment Time: 20 Total Billed Treatment 1 visit EVHighC 20 min COSME ZABALA PT Oct 21, 2018 11:39
[2018-10-21] MEDS: ADVAIR HFA 115/21 MCG INHALER 8 GM IH SCH ×2 (12:38→20:04)
--- NOTE | 2018-10-21 15:33 | Diagnostic Imaging Report ---
INDICATION: Shortness of air. TIME OF EXAM: 12:30 p.m. Correlation is made with prior study from 10/18/2018. FINDINGS: The heart is enlarged. There are congestive changes in both lungs which appear increased. Central congestion and bibasilar infiltrates are noted. Left upper extremity PICC line has the tip overlying the right atrium. No pneumothorax is seen. IMPRESSION: Increase in congestive changes when compared with examination from three days earlier. Dictated by: Dictated on workstation # [id number]
--- NOTE | 2018-10-21 15:48 | Occupational Therapy Eval ---
OT Evaluation-General/PLF Medical Diagnosis Admission Date Oct 14, 2018 at 09:11 Medical Diagnosis: right foot infection/respiratory distress Onset Date: Oct 14, 2018 Therapy Diagnosis Therapy Diagnosis: Right BK Amputation Height/Weight Height (Feet): 5 Height (Inches): 8.00 Weight (Pounds): 165 Weight (Ounces): 6.4 Precautions Precautions/Isolations: Contact Isolation Safety Interventions: Bed Exit Alarm Referral Physician: Sola Referral Reason: Activity Tolerance, Self Care, Evaluation/Treatment, Strengthening/ROM Medical History Pertinent Medical History: CAD, COPD, DM, Dementia, HTN, Hypothroidism, Neuropathy Additional Medical History Rt BK Amputation, pt in Contact Isolation, Respi.insufficiency, anemia, bloody nose. Current History Pt very restless in her room , Pt stated, " I am doing fine , has pain in my Left leg not in a right leg. " Social History Home: Single Level Current Living Status: Children Entry Into Home: Ramp ADL-Prior Level of Function Therapy Code Descriptions/Definitions Functional [place] Measure: 0=Not Assessed/NA 4=Minimal Assistance 1=Total Assistance 5=Supervision or Setup 2=Maximal Assistance 6=Modified [place] 3=Moderate Assistance 7=Complete [place] Therapy Quality Codes: 6 Independent with activity with or without an assistive device 5 Patient requires set up or clean up by helper. Patient completes activity by themselves 4 Supervision or touching assist (CGA). [place] provide cues , steadying assist 3 The helper provides less than half the effort to complete the activity 2 The helper provides more than half the effort to complete the activity 1 Dependent. The helper does all the effort to complete an activity 7 Patient refused to complete or attempt activity 9 The patient did not perform the activity before the current illness or injury 88 Not attempted due to Medical conditions or safety concerns Functional Abilities and Goals: Independent: Patient completed the activities by him/herself, with or without an assistive device, with no assistance from a helper. Needed Some Help: Patient needed partial assistance from another person to complete activities. Dependent: A helper completed the activities for the patient. Unknown: Not Applicable: ADL PLOF Comments 83 yrs old white female , was living at home with her daughter in [facility], & was Independent in all ADL's, transfers, bed mobility & ambulation with w/ walker . Self Care: Independent Functional Cognition: Independent DME/Equipment Comments w/walker Drive Self: No OT Current Status Subjective Patient in [place] ISOLATION. On enterning her room , pt was sitted in bed hoding both bed railings & restless. On asking , " how are you, pt replied, " I am fine . Pt aware of her Rt BK Amputation & no c/o pain in stump. Pain Numeric Pain Scale: 3 Location: Left Location Body Site: Knee Pain Description: Sharp Mental Status/Objective Patient Orientation: Person, Place, Eyes Open, Normal For Age ADL-Treatment Therapy Code Descriptions/Definitions Functional [place] Measure: 0=Not Assessed/NA 4=Minimal Assistance 1=Total Assistance 5=Supervision or Setup 2=Maximal Assistance 6=Modified [place] 3=Moderate Assistance 7=Complete [place] Therapy Quality Codes: 6 Independent with activity with or without an assistive device 5 Patient requires set up or clean up by helper. Patient completes activity by themselves 4 Supervision or touching assist (CGA). [place] provide cues , steadying assist 3 The helper provides less than half the effort to complete the activity 2 The helper provides more than half the effort to complete the activity 1 Dependent. The helper does all the effort to complete an activity 7 Patient refused to complete or attempt activity 9 The patient did not perform the activity before the current illness or injury 88 Not attempted due to Medical conditions or safety concerns Eating (FIM): 6 Grooming (FIM): 3 Bathing (FIM): 0 Upper Body Dressing (FIM): 2 Lower Body Dressing (FIM): 0 Toileting (FIM): 0 Transfers (B, C, W/C) (FIM): 0 Toilet/Commode Transfer (FIM): 0 Shower Transfer (FIM): 0 Education OT Patient Education: Correct positioning Teaching Recipient: Patient Teaching Methods: Demonstration, Discussion Response to Teaching: Verbalize Understanding, Return Demonstration OT Short Term Goals Short Term Goals Time Frame: Nov 04, 2018 Eating(FIM): 6 Grooming(FIM): 5 Upper Body Dressing(FIM): 4 Lower Body Dressing(FIM): 2 Toileting(FIM): 2 Transfers (B,C,W/C) (FIM): 3 Additional Short Term Goals: 1-Demonstrate ADL Tasks, 2-Verbalize Understanding , 3-ImproveStrength/Andrzej 1=Demonstrate adherence to instructed precautions during ADL tasks. 2=Patient will verbalize/demonstrate understanding of assistive devices/ modifications for ADL. 3=Patient will improve strength/tolerance for activity to enable patient to perform ADL's. OT Prison Goals Prison Goals Time Frame: Nov 18, 2018 Eating (FIM): 7 Grooming(FIM): 7 Bathing(FIM): 4 Bathing Location: L Arm, R Arm, L Upper Leg, R Upper Leg, L Lower Leg ( including foot), Chest, Abdomen, Buttocks, Perineal Area Upper Body Dressing(FIM): 6 Lower Body Dressing(FIM): 4 Toileting(FIM): 5 Transfers (B,C,W/C) (FIM): 4 Toilet/Commode Transfer(FIM): 4 Shower Transfer(FIM): 4 Additional Goals: 1-Demonstrate ADL Tasks, 2-Verbalize Understanding, 3- ImproveStrength/Andrzej 1=Demonstrate adherence to instructed precautions during ADL tasks. 2=Patient will verbalize/demonstrate understanding of assistive devices/ modifications for ADL. 3=Patient will improve strength/tolerance for activity to enable patient to perform ADL's. OT Education/Plan Problem List/Assessment Assessment: Decreased Activ Tolerance, Decreased Safety Aware, Decreased UE Strength, Dependent Transfers, Impaired Bed Mobility, Impaired Cognition, Impaired Funct Balance, Impaired Self-Care Skills Discharge Recommendations Plan To return home Independently with my daughter.with safety Plan/Recommendations: Continue POC Therapy D/C Recommendations: Home w/ Family Support, Occupational Therapy Home Care Equpiment Recommendations-D/C: Extended Bath Bench, Toilet Riser with Rails, Bath Chair, Extended Shower Sprayer, Acupuncture Physician, Sock Aide, Long Shoe Horn Comment Pt has Rt BK Amputation & she will require A E for safety to prevent for & to maximise [place] in all ADL's Barriers to Progress Mild cofusion, aging & Rt BK Amputation Patient/Family Goals To return home with her daughter Independently. Treatment Plan/Plan of Care Treatment,Training & Education: Yes Patient would benefit from OT for education, treatment and training to promote independence in ADL's, mobility, safety and/or upper extremity function for ADL' s. Plan of Care: ADL Retraining, Caregiver Training, Cognitive Retraining, Functional Mobility, UE Funct Exercise/Act Treatment Duration: Nov 18, 2018 Frequency: 5 times per week Estimated Hrs Per Day: .25 hour per day Agreement: Yes Rehab Potential: Good Time/GCodes Start Time: 14:45 Stop Time: 15:25 Total Time Billed (hr/min): 40 Billed Treatment Time 1 Visit, EVM 25, ADL's 15 Total 40 min CHALO TRIVEDI OT Oct 21, 2018 15:48
[2018-10-21] MEDS: amLODIPine 5 MG (NORVASC) TAB PO SCH (19:27)
[2018-10-21] MEDS: ALPRAZolam 0.25 MG (XANAX) TAB PO PRN (19:27)
[2018-10-21] MEDS: NORTRIPTYLINE 25 MG (PAMELOR) CAP PO SCH (19:27)
[2018-10-21] MEDS: lisINopril 5 MG (PRINIVIL) TABLET PO SCH (19:27)
[2018-10-22 00:16] VITALS: BP 148/77
[2018-10-22] MEDS: RT-ALBUTEROL/IPRATROPIUM 3 ML (DUONEB) VIAL INH SCH ×2 (03:23→09:50)
[2018-10-22 04:01] VITALS: BP 144/67
[2018-10-22] MEDS: inSUlin ASPART (NovoLOG) 1 UNIT/0.01 ML (CHARGE PER UNIT) SC SCH ×2 (04:18→08:40)
[2018-10-22] MEDS: LEVOTHYROXINE 50 MCG (LEVOTHROID) TAB PO SCH (06:41)
[2018-10-22] MEDS: PANTOPRAZOLE 40 MG (PROTONIX) TAB PO SCH (06:41)
[2018-10-22] MEDS: KCL 10 MEQ TAB (MICRO K) PO SCH ×2 (06:41)
[2018-10-22 06:57] LABS: BASOPHILS % (AUTO) 0 % (0-10); EOSINOPHILS # (AUTO) 0.1 10^3/uL (0.0-0.3); EOSINOPHILS % (AUTO) 1 % (0-10); HEMATOCRIT 26 % (35-52); HEMOGLOBIN 8.2 G/DL (11.5-16.0); LYMPHOCYTES # (AUTO) 1.3 X 10^3 (1.0-4.0); LYMPHOCYTES % (AUTO) 10 % (12-44); MEAN CORPUSCULAR HEMOGLOBIN 29 PG (25-34); MEAN CORPUSCULAR HGB CONC 31 G/DL (32-36); MEAN CORPUSCULAR VOLUME 95 FL (80-99); MEAN PLATELET VOLUME 9.1 FL (7.4-10.4); MONOCYTES # (AUTO) 1.5 X 10^3 (0.0-1.0); MONOCYTES % (AUTO) 11 % (0-12); NEUTROPHILS # (AUTO) 10.3 X 10^3 (1.8-7.8); NEUTROPHILS % (AUTO) 78 % (42-75); PLATELET COUNT 500 10^3/uL (130-400); RED BLOOD COUNT 2.79 10^6/uL (4.35-5.85); WHITE BLOOD COUNT 13.2 10^3/uL (4.3-11.0)
--- NOTE | 2018-10-22 07:12 | Pulmonary Progress Note ---
Subjective Time Seen by a Provider: 07:12 Subjective/Events-last exam PT is now off Vapotherm and on a regular NC. Sepsis Event Evaluation Height, Weight, BMI Height: 5'8.00" Weight: 162lbs. 7.0oz. 73.714693gl; 25.1 BMI Method:Stated Exam Exam Vital Signs Date Time Temp Pulse Resp B/P (MAP) Pulse Ox O2 Delivery O2 Flow Rate FiO2 10/22/18 04:01 98.4 103 16 144/67 (92) 96 Vapotherm 10/22/18 03:24 93 High Flow N/C 10.00 10/22/18 00:16 97.5 103 16 148/77 (100) 99 Vapotherm 10/21/18 20:01 96 High Flow N/C 10.00 10/21/18 19:19 98.9 107 16 162/81 (108) 96 Vapotherm 10/21/18 19:15 High Flow N/C 10.00 10/21/18 16:03 99.6 91 16 137/75 (95) 98 Vapotherm 10/21/18 12:55 97.9 94 18 136/82 (100) 92 Vapotherm 50.00 10/21/18 08:37 96.0 99 16 147/83 (104) 92 Vapotherm 50.00 15.00 10/21/18 08:00 92 Vapotherm 15.00 50 I & O 10/22/18 07:00 Intake Total 1870 ml Output Total 2100 ml Balance -230 ml Height & Weight Height: 5'8.00" Weight: 162lbs. 7.0oz. 73.927084uf; 25.1 BMI Method:Stated General Appearance: No Apparent Distress, WD/WN, Chronically ill HEENT: PERRL/EOMI Respiratory: Chest Non Tender, No Accessory Muscle Use, No Respiratory Distress , Crackles, Decreased Breath Sounds Cardiovascular: No Gallop, No JVD, No Murmur, Normal Peripheral Pulses, Systolic Murmur, Irregularly Irregular, Tachycardia Gastrointestinal: normal bowel sounds, non tender, soft, no organomegaly, no pulsatile mass Extremity: Normal Capillary Refill, Normal Inspection, Other (necrosis of right first toe with swelling and ecchymosis that spreads to medial aspect of right midfoot) Neurologic/Psychiatric: Alert, No Motor/Sensory Deficits, Normal Mood/Affect, Disoriented Results Lab Laboratory Tests 10/21/18 05:00 10/22/18 06:48 Assessment/Plan Assessment/Plan Acute on chronic respiratory failure -PT is now off Vapotherm and on a regular NC. 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
[2018-10-22 07:17] LABS: BUN/CREATININE RATIO 21; CALCIUM 9.2 MG/DL (8.5-10.1); CARBON DIOXIDE 30 MMOL/L (21-32); CHLORIDE 96 MMOL/L (98-107); CREATININE SERUM 0.66 MG/DL (0.60-1.30); GFR ESTIMATED > 60; GLUCOSE 110 MG/DL (70-105); MAGNESIUM 1.7 MG/DL (1.8-2.4); PHOSPHORUS 2.5 MG/DL (2.3-4.7); SODIUM 135 MMOL/L (135-145)
[2018-10-22 08:00] VITALS: BP 119/96
[2018-10-22] MEDS: MAGNESIUM OXIDE (MAG-OX)400 MG TAB PO SCH (08:10)
[2018-10-22] MEDS: CLOPIDOGREL 75 MG (PLAVIX) TABLET PO SCH (08:10)
[2018-10-22] MEDS: POLYETHYLENE GLYCOL 17 GM (MIRALAX) PACK PO SCH (08:10)
[2018-10-22] MEDS: SENNA W/DOCUSATE (SENOKOT S) TABLET PO SCH (08:10)
[2018-10-22] MEDS: ASPIRIN 81 MG CHEW (CHILDREN'S ASA) PO SCH (08:10)
[2018-10-22] MEDS: HYDROcodone/APAP 5 MG/325 MG (LORTAB) TAB PO PRN (08:26)
[2018-10-22] MEDS ORDERED: FUROSEMIDE 40 MG/4 ML INJ (LASIX) IVP SCH (09:00)
--- NOTE | 2018-10-22 09:03 | Cardiology Progress Note ---
Subjective Date Seen by Provider: Oct 22, 2018 Time Seen by Provider: 09:02 Subjective/Events-last exam patient is laying down in bed, complaining of fatigue and loss of energy. No chest pain Review of Systems General: No Chills, No Night Sweats; Fatigue; No Malaise, No Appetite, No Other HEENT: No Head Aches, No Visual Changes, No Eye Pain, No Ear Pain, No Dysphasia , No Sinus Congestion, No Post Nasal Drip, No Sore Throat, No Other Pulmonary: No Dyspnea, No Cough, No Pleuritic Chest Pain, No Other Cardiovascular: No: Chest Pain, Palpitations, Orthopnea, Paroxysmal Noc. Dyspnea, Edema, Lt Headedness, Other Objective-Cardiology Exam Last Set of Vital Signs Vital Signs 10/21/18 10/22/18 10/22/18 08:00 03:24 04:01 Temp 98.4 Pulse 103 Resp 16 B/P (MAP) 144/67 (92) Pulse Ox 96 O2 Delivery Vapotherm O2 Flow Rate 10.00 FiO2 50 Capillary Refill : Less Than 3 Seconds I&O Intake and Output 10/22/18 00:00 Intake Total 2170 ml Output Total 2300 ml Balance -130 ml Intake Oral 2170 ml Output Urine Total 2300 ml General: Alert, Oriented X3, Cooperative, Moderate Distress HEENT: Atraumatic, PERRLA Neck: Supple, No Thyromegaly Lungs: Normal Air Movement, Other (bilateral wheezing, rhonchi) Heart: Regular Rate, Normal S1, Normal S2, Other (systolic murmur at the left sternal border) Abdomen: Normal Bowel Sounds, Soft, No Tenderness, No Hepatosplenomegaly, No Masses Extremities: No Clubbing, Other (R BKA dressing C/D/I) Skin: No Breakdown, Other (status post right BKA) Neuro: Normal Speech, Normal Tone, Sensation Intact Psych/Mental Status: Mental Status NL, Mood NL Results Lab Laboratory Tests 10/22/18 06:48 A/P-Cardiology Admission Diagnosis Gangrene of toe Peripheral arterial disease Coronary artery disease Hypertension Assessment/Plan Status post acute respiratory failure, better at this time, continue to monitor 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 Continue to monitor Anemia, monitored by primary care physician. Transfuse as needed. Coronary artery disease, status post drug-eluting stent deployment using 2 stents to the LAD Promus Premier 3.012 mm and 3.58 mm, done by Dr. Clements. Patient is on aspirin and Plavix. Continue to monitor Aortic stenosis, echocardiogram showed normal LV size and function with ejection fraction 50-55 percent, moderate aortic valve stenosis with valve area 1.0 cm, severe pulmonary hypertension with PA pressure of 50 mmHg. Continue to monitor Patient was on Eliquis, currently in sinus rhythm with frequent APCs. Not sure about her history. currently off Eliquis, maintained on aspirin and Plavix. Continue to monitor Hypertension, continue to monitor blood pressure Hyperlipidemia, maintained on Crestor and Zetia, continue to monitor lipids Moderate bilateral carotid stenosis, diffuse atherosclerotic plaques will need to have workup done in the future regarding her carotids Diabetes mellitus, followed and managed by primary care physician History of heart disease. Clinical Quality Measures DVT/VTE Risk/Contraindication: Risk Factor Score Per Nursin RFS Level Per Nursing on Admit: 4+=Very High GURWINDER CHINCHILLA MD Oct 22, 2018 09:03
--- NOTE | 2018-10-22 09:30 | NUR ---
Documentation is indicating that patient is still on Vapotherm in some areas. Went to patient's room to check on this. The patient is currently on Hi flow nasal canula at 9LPM. Physical therapy in room helping patient transfer to a chair. Noted that the patient's respirations are even et unlabored et does not appear to be in any respiratory distress with this activity.
[2018-10-22] MEDS: ADVAIR HFA 115/21 MCG INHALER 8 GM IH SCH (09:50)
--- NOTE | 2018-10-22 10:03 | NUR ---
Swing Bed Note: Patient qualifies for swing bed for short term goals with Physical et Occupational therapies. She had a right below the knee amputation on 10/19 et continues to improve slowly. She is working with PT et OT et at this point is dependent for transfers. Ultimate goal for this stay is to increase tolerance to therapies et ultimately transition to inpatient rehabilitation for intensive therapies vs. care home home placement for slower rehabilitation. Will admit to swing bed today 10/22/18. Thank you for this referral!
--- NOTE | 2018-10-22 10:22 | Physical Therapy Daily Note ---
PT Daily Note-Current Subjective Patient reluctantly agrees to PT. She had just received pain medication prior to PT arrival. Pain Numeric Pain Scale: 10-Worst Possible Pain Location: Right Location Body Site: Knee (stump) Pain Description: Acute Mental Status Patient Orientation: Confused Attachments: Oxygen (10L HF), Wagner Catheter Transfers Therapy Code Descriptions/Definitions Functional [place] Measure: 0=Not Assessed/NA 4=Minimal Assistance 1=Total Assistance 5=Supervision or Setup 2=Maximal Assistance 6=Modified [place] 3=Moderate Assistance 7=Complete [place] Therapy Quality Codes: 6 Independent with activity with or without an assistive device 5 Patient requires set up or clean up by helper. Patient completes activity by themselves 4 Supervision or touching assist (CGA). [place] provide cues , steadying assist 3 The helper provides less than half the effort to complete the activity 2 The helper provides more than half the effort to complete the activity 1 Dependent. The helper does all the effort to complete an activity 7 Patient refused to complete or attempt activity 9 The patient did not perform the activity before the current illness or injury 88 Not attempted due to Medical conditions or safety concerns Transfers (B, C, W/C) (FIM): 1 Scootin Rollin Supine to/from Sit: 1 Sit to/from Stand: 1 Bed to/from Chair: 1 dependent x 2 assist with SPT to left with assist of 1 for tubing Weight Bearing Left Lower Extremity: Left Full Weight Bearing Assessment Noted increase in confusion on this date. Patient is up in recliner with needs met. RN is aware to assist patient upon returning to bed. PT to increase activity as tolerated by patient. Currently she is unable to tolerate extension time and treatment. PT Short Term Goals Short Term Goals Transfers (B,C,W/C) (FIM): 3 PT Mcc Goals Mcc Goals PT Customer Service Rep Goals Time Frame: Nov 06, 2018 Transfers (B,C,W/C) (FIM): 3 Wheelchair (FIM): 1 Wheelchair distance (FIM): 1=up to 49 ft Distance: 45' Wheelchair Level of Assist: 4 PT Plan Treatment/Plan Treatment Plan: Continue Plan of Care Treatment Plan: Bed Mobility, Education, Functional Activity Andrzej, Functional Strength, Gait, Safety, Therapeutic Exercise, Transfers Treatment Duration: Nov 06, 2018 Frequency: 6 times per week (increase to 11/wk when able to tolerate) Estimated Hrs Per Day: .5 hour per day Patient and/or Family Agrees t: Yes Time/GCodes Time In: 930 Time Out: 945 Total Billed Treatment Time: 15 Total Billed Treatment 1 visit FA 15 min COSME ZABALA PT Oct 22, 2018 10:22
--- NOTE | 2018-10-22 10:48 | Discharge Summary-Hospitalist ---
Diagnosis/Chief Complaint Date of Admission Oct 14, 2018 at 09:11 Date of Discharge Discharge Date: Oct 22, 2018 Admission Diagnosis Assessment: Right acute infected diabetic ulcer of the right foot with gangrene in need of below the knee amputation due to unsuccessful intervention for vascular compromise Chronic atrial fibrillation on anticoagulation Valvular heart disease with systolic murmur Hypertension Diabetes mellitus Hyperlipidemia Anemia Bloody stools consulting general surgery Hypothyroidism Dementia Plan: Appreciate Dr. Garcia help with below the knee amputation Thursday and evaluation of bloody stools Hold anticoagulation in preparation for amputation Blood sugar checks Check labs IV antibiotics Home meds otherwise Pain control Discharge Diagnosis (1) Amputation of right lower extremity below knee Status: Acute (2) Gangrene of right foot Status: Resolved (3) Respiratory insufficiency Status: Resolved (4) Tachypnea Status: Resolved (5) Hypoxemia Status: Chronic (6) Diabetes mellitus Status: Chronic (7) Atrial fibrillation Status: Chronic (8) Hypertension Status: Chronic (9) Hyperlipemia Status: Chronic (10) Hypothyroidism Status: Chronic (11) Anemia Status: Acute (12) Melena Status: Acute (13) COPD (chronic obstructive pulmonary disease) Status: Chronic (14) CHF (congestive heart failure) Status: Chronic (15) Right foot ulcer Status: Resolved (16) Presence of stent in coronary artery in patient with coronary artery disease Status: Chronic Discharge Summary Discharge Physical Exam Allergies: Coded Allergies: codeine (Verified Allergy, Unknown, 10/16/18) Vitals & I&Os Vital Signs Date Time Temp Pulse Resp B/P (MAP) Pulse Ox O2 Delivery O2 Flow Rate FiO2 10/22/18 09:50 96 High Flow N/C 7.00 10/22/18 08:00 98.4 115 18 119/96 (104) 10/21/18 08:00 50 General Appearance: No Apparent Distress, WD/WN, Chronically ill Respiratory: Chest Non Tender, Normal Breath Sounds, No Accessory Muscle Use, No Respiratory Distress, Crackles Cardiovascular: Regular Rate, Rhythm, No Edema, No Gallop, No JVD, No Murmur, Normal Peripheral Pulses Gastrointestinal: Normal Bowel Sounds, No Organomegaly, No Pulsatile Mass, Non Tender, Soft Neurologic/Psychiatric: Alert, Oriented x3, No Motor/Sensory Deficits, Normal Mood/Affect Hospital Course Hospital course: Patient had an extended hospital stay after she was admitted for right foot diabetic ulcer infection and placed on empiric antibiotics. Preparation was made for right below the knee amputation by Dr. Garcia along with EGD and colonoscopy due to melena reported since she was maintain on anticoagulation for atrial fibrillation. She did undergo respiratory failure which prompted ICU admission and received IV Lasix with cardiology and pulmonology management. Patient was titrated down off oxygen of Vapotherm and underwent an uncomplicated right below the knee amputation with good results. She received iron infusions during the hospital stay. Overall poor prognosis considering advanced age and comorbidities but she did benefit from the right below the knee amputation and will be placed on swing bed for further recovery to evaluate inpatient rehabilitation or straight to a nursing facility at discharge. Labs (last 24 hrs) Laboratory Tests 10/21/18 15:43: Glucometer 183H 10/21/18 16:07: Stool Occult Blood Immunoassay NEGATIVE 10/21/18 20:08: Glucometer 245H 10/21/18 23:40: Glucometer 156H 10/22/18 03:35: Glucometer 218H 10/22/18 06:48: White Blood Count 13.2H, Red Blood Count 2.79L, Hemoglobin 8.2L, Hematocrit 26L , Mean Corpuscular Volume 95, Mean Corpuscular Hemoglobin 29, Mean Corpuscular Hemoglobin Concent 31L, Red Cell Distribution Width 16.0H, Platelet Count 500H, Mean Platelet Volume 9.1, Neutrophils (%) (Auto) 78H, Lymphocytes (%) (Auto) 10L , Monocytes (%) (Auto) 11, Eosinophils (%) (Auto) 1, Basophils (%) (Auto) 0, Neutrophils # (Auto) 10.3H, Lymphocytes # (Auto) 1.3, Monocytes # (Auto) 1.5H, Eosinophils # (Auto) 0.1, Basophils # (Auto) 0.0, Sodium Level 135, Potassium Level 4.0, Chloride Level 96L, Carbon Dioxide Level 30, Anion Gap 9, Blood Urea Nitrogen 14, Creatinine 0.66, Estimat Glomerular Filtration Rate > 60, BUN/ Creatinine Ratio 21, Glucose Level 110H, Calcium Level 9.2, Phosphorus Level 2.5 , Magnesium Level 1.7L 10/22/18 08:29: Glucometer 110 10/22/18 11:14: Glucometer 169H Microbiology 10/15/18 MRSA Screen - Final, Complete MRSA not isolated Patient resulted labs reviewed. Pending Labs Laboratory Tests 10/22/18 06:48: White Blood Count 13.2, Red Blood Count 2.79, Hemoglobin 8.2, Hematocrit 26, Mean Corpuscular Volume 95, Mean Corpuscular Hemoglobin 29, Mean Corpuscular Hemoglobin Concent 31, Red Cell Distribution Width 16.0, Platelet Count 500, Mean Platelet Volume 9.1, Neutrophils (%) (Auto) 78, Lymphocytes (%) (Auto) 10, Monocytes (%) (Auto) 11, Eosinophils (%) (Auto) 1, Basophils (%) (Auto) 0, Neutrophils # (Auto) 10.3, Lymphocytes # (Auto) 1.3, Monocytes # (Auto) 1.5, Eosinophils # (Auto) 0.1, Basophils # (Auto) 0.0, Sodium Level 135, Potassium Level 4.0, Chloride Level 96, Carbon Dioxide Level 30, Anion Gap 9, Blood Urea Nitrogen 14, Creatinine 0.66, Estimat Glomerular Filtration Rate > 60, BUN/ Creatinine Ratio 21, Glucose Level 110, Calcium Level 9.2, Phosphorus Level 2.5 , Magnesium Level 1.7 10/22/18 08:29: Glucometer 110 10/22/18 11:14: Glucometer 169 Discussion & Recommendations Discharge Planning: <30 minutes discharge planning Discharge Home Medications: Active Scripts Active Reported Proair Hfa (Albuterol Sulfate) 1 Puff Puff 2 Puff IH Q4H PRN 1 PUFF = 90 MCG Tylenol Extra Strength (Acetaminophen) 500 Mg Tablet 1,000 Mg PO Q6H PRN Vitamin B-6 (Pyridoxine HCl) 100 Mg Tablet 100 Mg PO DAILY Vitamin C (Ascorbate Calcium) 500 Mg Tablet 500 Mg PO DAILY Advil (Ibuprofen) 200 Mg Tablet 200 Mg PO Q4H PRN Iron (Ferrous Sulfate) 325 Mg Tablet 325 Mg PO DAILY Vitamin D3 (Cholecalciferol (Vitamin D3)) 2,000 Unit Capsule 2,000 Unit PO DAILY Vitamin E (Vitamin E (Dl,Tocopheryl Acet)) 200 Unit Capsule 200 Unit PO DAILY Plavix (Clopidogrel Bisulfate) 75 Mg Tablet 75 Mg PO DAILY Humalog Kwikpen (Insulin Lispro) 100 Unit/1 Ml Insuln.pen 10 Unit SQ TIDAC PRN Eliquis (Apixaban) 5 Mg Tablet 5 Mg PO BID Metformin HCl ER (Metformin HCl) 500 Mg Tab.er.24h 1,000 Mg PO BID TAKES 2 (500MG) TABLETS Lisinopril 5 Mg Tablet 5 Mg PO HS Nortriptyline HCl 25 Mg Capsule 25 Mg PO HS LAST FILLED #90 8-- Levothyroxine Sodium 50 Mcg Tablet 50 Mcg PO DAILY Amlodipine Besylate 5 Mg Tablet 5 Mg PO HS Esomeprazole Magnesium 40 Mg Capsule.dr 40 Mg PO DAILY Atorvastatin Calcium 80 Mg Tablet 80 Mg PO HS Diltiazem 24Hr ER (Diltiazem HCl) 180 Mg Cap.er.24h 180 Mg PO DAILY LAST FILLED #90 06-11-18 [place] 3 1,000 mg Softgel ([place]-3 Fatty Acids/Fish Oil) 1 Each Capsule 1 Cap PO DAILY Instructions to patient/family Please see electronic discharge instructions given to patient. 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 (2) Atrial fibrillation: Atrial fibrillation type: chronic Qualified Codes: I48.2 - Chronic atrial fibrillation (3) Hypertension: Hypertension type: essential hypertension Qualified Codes: I10 - Essential ( primary) hypertension (4) Hyperlipemia: Hyperlipidemia type: mixed hyperlipidemia Qualified Codes: E78.2 - Mixed hyperlipidemia (5) Hypothyroidism: Hypothyroidism type: acquired Qualified Codes: E03.9 - Hypothyroidism, unspecified (6) Anemia: Anemia type: iron deficiency Iron deficiency anemia type: chronic blood loss Qualified Codes: D50.0 - Iron deficiency anemia secondary to blood loss ( chronic) (7) COPD (chronic obstructive pulmonary disease): COPD type: unspecified COPD Qualified Codes: J44.9 - Chronic obstructive pulmonary disease, unspecified (8) CHF (congestive heart failure): Heart failure type: unspecified Heart failure chronicity: unspecified Qualified Codes: I50.9 - Heart failure, unspecified (9) Right foot ulcer: Non-pressure ulcer stage: with necrosis of bone Qualified Codes: L97.514 - Non-pressure chronic ulcer of other part of right foot with necrosis of bone CHUCK NAVA DO Oct 22, 2018 10:48
[2018-10-26] MEDS ORDERED: FLUT12AE4 IH (09:48)
[2018-10-26] MEDS ORDERED: ACHD5005 PO (09:48)
[2018-10-26] MEDS ORDERED: ASPI-999 PO (09:48)
[2018-10-26] MEDS ORDERED: DOCU100C37 PO (09:48)
[2018-10-26] MEDS ORDERED: FURO20TA4 PO (09:48)
== END 2018-10-22 10:55 | disposition swing bed (61) | DRG 239 ==
LOC: 4TH 09:11 → ICU 10-17 05:21 → 4TH 10-18 13:50
PROVIDERS: ADMIT Internal Medicine; ATTEND Internal Medicine
PROC: 0Y6H0Z1 Detachment at Right Lower Leg, High, Open Approach (ICD-10-PCS; principal; 2018-10-19 13:10)
DX: E11.52 Type 2 diabetes mellitus with diabetic peripheral angiopathy with gangrene (principal); E11.40 Type 2 diabetes mellitus with diabetic neuropathy, unspecified; L97.514 Non-pressure chronic ulcer of other part of right foot with necrosis of bone; J96.20 Acute and chronic respiratory failure, unspecified whether with hypoxia or hypercapnia; J44.1 Chronic obstructive pulmonary disease with (acute) exacerbation; K92.1 Melena; D50.0 Iron deficiency anemia secondary to blood loss (chronic); I48.2 Chronic atrial fibrillation; Z66 Do not resuscitate; I25.10 Atherosclerotic heart disease of native coronary artery without angina pectoris; E78.2 Mixed hyperlipidemia; I11.0 Hypertensive heart disease with heart failure; I50.9 Heart failure, unspecified; I49.1 Atrial premature depolarization; I35.0 Nonrheumatic aortic (valve) stenosis; F41.9 Anxiety disorder, unspecified; E03.9 Hypothyroidism, unspecified; K59.09 Other constipation; R01.1 Cardiac murmur, unspecified; F03.90 Unspecified dementia, unspecified severity, without behavioral disturbance, psychotic disturbance, mood disturbance, and anxiety; I65.23 Occlusion and stenosis of bilateral carotid arteries; I27.20 Pulmonary hypertension, unspecified; Z79.01 Long term (current) use of anticoagulants; Z95.5 Presence of coronary angioplasty implant and graft; Z87.891 Personal history of nicotine dependence; Z79.4 Long term (current) use of insulin
CPT/HCPCS: 36415; 36569; 71045; 71046; 73620; 76937; 80048; 80053; 80202; 81000; 82274; 82805; 82962; 83036; 83540; 83735; 83880; 84100; 84484; 85007; 85025; 85027; 86850; 86900; 86901; 86920; 87081; 88307; 93005; 93306; 93926; 94640; 94760

== ENCOUNTER 2018-10-22 09:54 | Inpatient (IN) | payer MEDICARE, OTHER, MEDICAID ==
[~2018-10-22] VITALS: Ht 172.7 cm; Wt 73.7 kg
[~2018-10-22 09:54] MED LIST changes: +ACET-2267 PO; +ASCO-262 PO; +CHOL20003 PO; +CLOP75TA69 PO; +FERR-84 PO; +IBUP-30 PO; +INSU100I23 SQ; +PYRI100T2 PO; +RT-ALBUINH IH; +VITA200C60 PO
[2018-10-22] MEDS ORDERED: ONDANSETRON 4 MG/2 ML (SDV) Z0FRAN IVP PRN (11:00)
[2018-10-22] MEDS ORDERED: DOCUSATE SODIUM 100 MG (COLACE) CAP PO PRN (11:00)
[2018-10-22] MEDS ORDERED: morphine INJ 4 MG/ML 1 ML (VIAL/SYRINGE) IVP PRN (11:00)
[2018-10-22] MEDS ORDERED: RT-ALBUTEROL/IPRATROPIUM 3 ML (DUONEB) VIAL INH PRN (11:00)
[2018-10-22] MEDS ORDERED: diphenhydrAMINE 25 MG TAB (BENADRYL) PO PRN (11:00)
[2018-10-22] MEDS ORDERED: ACETAMINOPHEN 500 MG TAB (TYLENOL) PO PRN (11:00)
[2018-10-22] MEDS ORDERED: CALCIUM CARBONATE 500 MG (TUMS) TAB.CHEW PO PRN (11:00)
[2018-10-22] MEDS ORDERED: LACTATED RINGERS 1,000 ML IV PRN (11:00)
[2018-10-22] MEDS ORDERED: ALPRAZolam 0.25 MG (XANAX) TAB PO PRN (11:00)
[2018-10-22] MEDS ORDERED: LOPERAMIDE 2 MG (IMODIUM) CAP PO PRN (11:00)
[2018-10-22] MEDS ORDERED: MELATONIN 3 MG TABLET PO PRN (11:00)
[2018-10-22] MEDS ORDERED: LACTULOSE SYRUP 10GM/15ML (ENULOSE) 30ML UDC PO PRN (11:00)
--- NOTE | 2018-10-22 11:24 | Physical Therapy Evaluation ---
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 Patient completes activity by themselves 4 Supervision or touching assist (CGA). [place] provide cues , steadying assist 3 The helper provides less than half the effort to complete the activity 2 The helper provides more than half the effort to complete the activity 1 Dependent. The helper does all the effort to complete an activity 7 Patient refused to complete or attempt activity 9 The patient did not perform the activity before the current illness or injury 88 Not attempted due to Medical conditions or safety concerns Functional Abilities and Goals: Independent: Patient completed the activities by him/herself, with or without an assistive device, with no assistance from a helper. Needed Some Help: Patient needed partial assistance from another person to complete activities. Dependent: A helper completed the activities for the patient. Unknown: Not Applicable: Bed Mobility: 6 Transfers (B,C,W/C) (FIM): 6 Gait: 6 Stairs: 6 Indoor Mobility (Ambulation): Independent Stairs: Independent Prior Device Use: 4WW PT Evaluation-Current Subjective Patient in recliner pre tx, agrees to PT, has no pain in right stump at rest but does with movement. Patient would like to get back to bed. Pt/Family Goals "to get stronger" Objective Patient Orientation: Person, Confused, Place Attachments: Oxygen, Wagner Catheter ROM/Strength ROM Lower Extremities WNL on left leg, RLE not tested due to recent surgery and pain but it is observed that she cannot get full knee extension during exercises Strenght Lower Extremities RLE not tested, LLE 3+/5 gross Neuromuscular (Tone, Coordination, Reflexes) NT Sensory Vision: Functional Hearing: Functional Sensation Right Lower Extremit: Impaired Sensation Left Lower Extremity: Impaired Transfers Therapy Code Descriptions/Definitions Functional [place] Measure: 0=Not Assessed/NA 4=Minimal Assistance 1=Total Assistance 5=Supervision or Setup 2=Maximal Assistance 6=Modified [place] 3=Moderate Assistance 7=Complete [place] Therapy Quality Codes: 6 Independent with activity with or without an assistive device 5 Patient requires set up or clean up by helper. Patient completes activity by themselves 4 Supervision or touching assist (CGA). [place] provide cues , steadying assist 3 The helper provides less than half the effort to complete the activity 2 The helper provides more than half the effort to complete the activity 1 Dependent. The helper does all the effort to complete an activity 7 Patient refused to complete or attempt activity 9 The patient did not perform the activity before the current illness or injury 88 Not attempted due to Medical conditions or safety concerns Transfers (B, C, W/C) (FIM): 1 Scootin Rollin Roll Left to Right (QC): 2 Supine to/from Sit: 1 Sit to/from Stand: 1 bed t/f WC(FIM only if WC use): 1 Sit to Lying (QC): 1 Lying to Sitting/Side of Bed(Q: 1 Sit to Stand (QC): 1 Chair/Hyt-tm-Dyrnc Xfer(QC): 1 Patient is able to assist with rolling but other bed mobility and transfers are dependent. She attempted to stand from the chair with a rolling walker in front but was not able to even with assist. Dependent stand pivot had to be performed. Gait Does the Patient Walk?: No and Walking Goal IS indicated Mode of Locomotion: Both Balance Sitting Static: Good Sitting Dynamic: Fair Standing Static: Poor Standing Dynamic: Poor Treatment supine exercises x10 on the right side (SLR, QS, hip abd) Assessment/Needs Patient has impaired mobility, strength, endurance post right BKA Rehab Potential: Guarded PT Jail Goals Jail Goals PT Jail Goals Time Frame: Oct 29, 2018 Transfers (B,C,W/C) (FIM): 4 Sit to Lying (QC): 3 Lying-Sitting on Side/Bed(QC): 3 Sit to Stand (QC): 3 Rollin Roll Left to Right (QC): 3 Chair/Faf-zp-Kadoc Xfer(QC): 3 Gait (FIM): 1 Distance: 5' Gait Level of Assist: 3 Gait Assistive Device: FWW PT Plan Problem List Problem List: Activity Tolerance, Functional Strength, Safety, Balance, Gait, Transfer, Bed Mobility, ROM Treatment/Plan Treatment Plan: Continue Plan of Care Treatment Plan: Bed Mobility, Concurrent Therapy, Education, Functional Activity Andrzej, Functional Strength, Gait, Safety, Therapeutic Exercise, Transfers Treatment Duration: Oct 29, 2018 Frequency: 6 times per week Estimated Hrs Per Day: .25 hour per day (15-30') Patient and/or Family Agrees t: Yes Safety Risks/Education Patient Education: Transfer Techniques, Correct Positioning, Safety Issues Teaching Recipient: Patient Teaching Methods: Demonstration, Discussion Response to Teaching: Reinforcement Needed Discharge Recommendations Plan Patient will perform bed mobility and transfer training, balance and endurance training, functional strengthening, gait training, and education, to improve functional mobility and independence at home. Therapy D/C Recommendations: Home w/ Family Support, Half-Way (TCU/NH) Time/GCodes Time In: 1100 Time Out: 1130 Total Billed Treatment Time: 30 Total Billed Treatment 1 visit EVM 20' FA 10' EN BORJA PT Oct 22, 2018 11:24
[2018-10-22] MEDS ORDERED: inSUlin ASPART (NovoLOG) 1 UNIT/0.01 ML (CHARGE PER UNIT) SC PRN (11:30)
--- NOTE | 2018-10-22 11:38 | NUR ---
Admission Drug Regimen Review: Date: 10/22/18 Time: 1138 Review Completed, No Issues found
[2018-10-22] MEDS: inSUlin ASPART (NovoLOG) 1 UNIT/0.01 ML (CHARGE PER UNIT) SC SCH ×3 (12:05→20:29)
[2018-10-22] MEDS: IRON SUCROSE 200 MG/10 ML (VENOFER) VIAL IV SCH (12:10)
--- NOTE | 2018-10-22 12:12 | NUR ---
FILI NEGRETE admitted to swing bed status to room 432-1, with an admitting diagnosis of SWB , on 10/22/18 from acute inpatient status. Therapy to evaluate patient for activity needs. FILI NEGRETE and/or family introduced to surroundings, call light, bed controls, phone, TV, temperature control, lights, meal times, smoking policy, visitor policy, side rail policy, bathrooms, and showers. Patient rights given to patient in the handbook.. FILI NEGRETE and/or family member verbalized understanding that [facility] is not responsible for the loss or damage to any personal effects or valuables that are kept in the patients possession during their hospitalization.
--- NOTE | 2018-10-22 13:02 | Occupational Therapy Eval ---
OT Evaluation-General/PLF Medical Diagnosis Admission Date Oct 22, 2018 at 10:59 Medical Diagnosis: right BKA Onset Date: Oct 14, 2018 Therapy Diagnosis Therapy Diagnosis: Rt BK Amputation Height/Weight Height (Feet): 5 Height (Inches): 8.00 Weight (Pounds): 162 Weight (Ounces): 7.0 Precautions Precautions/Isolations: Contact Isolation, Protective Isolation, Fall Prevention, Standard Precautions Safety Interventions: Bed Exit Alarm Weight Bear Status Weight Bearing Restriction: Full Weight Bearing Referral Physician: Flores Selby DO Referral Reason: Activity Tolerance, Self Care, Evaluation/Treatment, Strengthening/ROM Medical History Pertinent Medical History: CAD, COPD, DM, Dementia, HTN, Hypothroidism, Neuropathy Additional Medical History Bloody nose, Bone CA Left leg, cardiac cathetarization Current History 83 yrs old Estefany Fernandez, W/F ,hospitalised due to Rt Foot gangrene & thus had to go for surgery for BK Amputation. Pt been eval yesterday in acte unit, today pt moved to Swing bed Rehab. Pt very alert, oriented today . Social History Home: Single Level Current Living Status: Children Entry Into Home: Ramp ADL-Prior Level of Function Therapy Code Descriptions/Definitions Functional [place] Measure: 0=Not Assessed/NA 4=Minimal Assistance 1=Total Assistance 5=Supervision or Setup 2=Maximal Assistance 6=Modified [place] 3=Moderate Assistance 7=Complete [place] Therapy Quality Codes: 6 Independent with activity with or without an assistive device 5 Patient requires set up or clean up by helper. Patient completes activity by themselves 4 Supervision or touching assist (CGA). [place] provide cues , steadying assist 3 The helper provides less than half the effort to complete the activity 2 The helper provides more than half the effort to complete the activity 1 Dependent. The helper does all the effort to complete an activity 7 Patient refused to complete or attempt activity 9 The patient did not perform the activity before the current illness or injury 88 Not attempted due to Medical conditions or safety concerns Functional Abilities and Goals: Independent: Patient completed the activities by him/herself, with or without an assistive device, with no assistance from a helper. Needed Some Help: Patient needed partial assistance from another person to complete activities. Dependent: A helper completed the activities for the patient. Unknown: Not Applicable: ADL PLOF Comments Pt was living at home with her daughter & was Independent in all self care tasks & mobility . Functional Cognition: Needed Some Help Drive Self: No OT Current Status Subjective Pt states, " I am fine today, waiting for my daughter .. Pt very alert cognitively , cooperative & oriented. Pain Numeric Pain Scale: 3 Location: Left Location Body Site: Knee Pain Description: Acute, Sharp Mental Status/Objective Patient Orientation: Person, Place, Time, Normal For Age Attachments: Oxygen Current Glasses/Contacts: Yes Hand Dominance: Right Upper Extremity ROM WFL Upper Extremity Coordination INTACT Upper Extremity Sensation Intact Upper Extremity Strength MS in BUE -4/5 grossaly graded. ADL-Treatment Eating (FIM): 6 Eating (QC): 6 Grooming (FIM): 5 Oral Hygiene (QC): 5 Bathing (FIM): 0 Shower/Bathe Self (QC): 0 Upper Body Dressing (FIM): 3 Upper Body Dressing (QC): 3 Lower Body Dressing (FIM): 0 Lower Body Dressing (QC): 0 Other Treatments Pt seen for OT Swing bed OT Eval, Strengthening ex, increase activity tolerance , self care tasks & mobility. Education OT Patient Education: Correct positioning Teaching Recipient: Patient Teaching Methods: Demonstration, Discussion Response to Teaching: Verbalize Understanding, Return Demonstration OT Short Term Goals Short Term Goals Time Frame: Nov 05, 2018 Eating(FIM): 7 Grooming(FIM): 7 Bathing(FIM): 4 Bathing Location: L Arm, R Arm, L Upper Leg, R Upper Leg, L Lower Leg ( including foot), Abdomen Upper Body Dressing(FIM): 4 Lower Body Dressing(FIM): 4 Toileting(FIM): 4 Transfers (B,C,W/C) (FIM): 4 Toilet/Commode Transfer(FIM): 4 Shower Transfer(FIM): 4 Additional Short Term Goals: 1-Demonstrate ADL Tasks, 2-Verbalize Understanding , 3-ImproveStrength/Andrzej 1=Demonstrate adherence to instructed precautions during ADL tasks. 2=Patient will verbalize/demonstrate understanding of assistive devices/ modifications for ADL. 3=Patient will improve strength/tolerance for activity to enable patient to perform ADL's. OT Lpn Goals Detention Goals Time Frame: Nov 19, 2018 Eating (FIM): 7 Eating (QC): 7 Groomin Oral Hygiene (QC): 6 Bathing(FIM): 5 Bathing Location: L Arm, R Arm, L Upper Leg, R Upper Leg, L Lower Leg ( including foot), Chest, Abdomen Shower/Bathe Self (QC): 5 Upper Body Dressing(FIM): 6 Upper Body Dressing (QC): 6 Lower Body Dressing(FIM): 5 Lower Body Dressing (QC): 5 Toileting(FIM): 6 Toileting Hygiene (QC): 6 Transfers (B,C,W/C) (FIM): 5 Toilet/Commode Transfer(FIM): 5 Toilet/Commode Transfer (QC): 5 Shower Transfer(FIM): 5 1=Demonstrate adherence to instructed precautions during ADL tasks. 2=Patient will verbalize/demonstrate understanding of assistive devices/ modifications for ADL. 3=Patient will improve strength/tolerance for activity to enable patient to perform ADL's. OT Education/Plan Problem List/Assessment Assessment: Decreased Activ Tolerance, Decreased Safety Aware, Decreased UE Strength, Dependent Transfers, Impaired Bed Mobility, Impaired Self-Care Skills Discharge Recommendations Plan/Recommendations: Continue POC Therapy D/C Recommendations: Home w/ Family Support, Occupational Therapy Home Care Barriers to Progress Pt has Rt BK Amputation. Patient/Family Goals To return home with daughter Independently. Treatment Plan/Plan of Care Patient would benefit from OT for education, treatment and training to promote independence in ADL's, mobility, safety and/or upper extremity function for ADL' s. Plan of Care: ADL Retraining, Caregiver Training, Functional Mobility Treatment Duration: Nov 19, 2018 Frequency: 5 times per week Estimated Hrs Per Day: .25 hour per day Agreement: Yes Rehab Potential: Guarded Time/GCodes Start Time: 11:35 Stop Time: 12:15 Total Time Billed (hr/min): 40 Billed Treatment Time 1 Visit, [facility] 40 min CHALO TRIVEDI OT Oct 22, 2018 13:02
[2018-10-22] MEDS: HYDROcodone/APAP 5 MG/325 MG (LORTAB) TAB PO PRN ×2 (14:26→21:40)
[2018-10-22] MEDS: RT-ALBUTEROL/IPRATROPIUM 3 ML (DUONEB) VIAL INH SCH ×2 (15:12→18:45)
--- NOTE | 2018-10-22 16:41 | NUR ---
1130 ASSESSMENT COMPLETED ON ACUTE CHART/ NO CHANGES FROM ACUTE STATUS ASSESSMENT.
--- NOTE | 2018-10-22 17:23 | Progress Note ---
Subjective Time Seen by a Provider: 17:10 Subjective/Events-last exam Pt seen and dressing taken down. She states pain is much better than before the surgery. Review of Systems Pulmonary: No Dyspnea, No Cough Cardiovascular: No: Chest Pain, Palpitations Objective Exam Vital Signs Date Time Temp Pulse Resp B/P (MAP) Pulse Ox O2 Delivery O2 Flow Rate FiO2 10/22/18 15:12 95 High Flow N/C 5.00 Capillary Refill : General Appearance: No Apparent Distress Respiratory: Chest Non Tender, Lungs Clear, Normal Breath Sounds Cardiovascular: Regular Rate, Rhythm Extremity: Other (incision is C/D/I, fluid filled blister on anterior aspect of leg, skin edges look good) Assessment/Plan Assessment/Plan Assessment/Plan S/P R BKA Dressing changed to kerlix and naldo wrap, change daily and as needed. PT to work with pt. I will follow along. Clinical Quality Measures DVT/VTE Risk/Contraindication: Risk Factor Score Per Nursin KIKE JACBOO DO Oct 22, 2018 17:23
[2018-10-22 18:10] VITALS: BP 142/70
[2018-10-22] MEDS: ADVAIR HFA 115/21 MCG INHALER 8 GM IH SCH (18:45)
[2018-10-22] MEDS: MAGNESIUM OXIDE (MAG-OX)400 MG TAB PO SCH (18:51)
--- NOTE | 2018-10-22 19:18 | NUR ---
1729 DR JACOBO ON FLOOR AND DRESSING TO RIGHT STUMP CHANGED.
[2018-10-22] MEDS: POLYETHYLENE GLYCOL 17 GM (MIRALAX) PACK PO SCH (19:41)
[2018-10-22] MEDS: SENNA W/DOCUSATE (SENOKOT S) TABLET PO SCH (19:41)
[2018-10-22] MEDS: FUROSEMIDE 40 MG/4 ML INJ (LASIX) IVP SCH (20:33)
[2018-10-22] MEDS: NORTRIPTYLINE 25 MG (PAMELOR) CAP PO SCH (20:34)
[2018-10-22] MEDS: lisINopril 5 MG (PRINIVIL) TABLET PO SCH (20:34)
[2018-10-22] MEDS: amLODIPine 5 MG (NORVASC) TAB PO SCH (20:34)
[2018-10-23] MEDS: RT-ALBUTEROL/IPRATROPIUM 3 ML (DUONEB) VIAL INH SCH ×4 (01:29→19:10)
[2018-10-23 05:38] VITALS: BP 151/87
[2018-10-23] MEDS: PANTOPRAZOLE 40 MG (PROTONIX) TAB PO SCH (06:30)
[2018-10-23] MEDS: LEVOTHYROXINE 50 MCG (LEVOTHROID) TAB PO SCH (06:30)
[2018-10-23] MEDS: KCL 10 MEQ TAB (MICRO K) PO SCH (06:31)
[2018-10-23] MEDS: inSUlin ASPART (NovoLOG) 1 UNIT/0.01 ML (CHARGE PER UNIT) SC SCH ×4 (06:31→20:19)
[2018-10-23] MEDS: HYDROcodone/APAP 5 MG/325 MG (LORTAB) TAB PO PRN ×3 (06:31→20:19)
[2018-10-23] MEDS: ADVAIR HFA 115/21 MCG INHALER 8 GM IH SCH ×2 (07:19→19:10)
[2018-10-23] MEDS: SENNA W/DOCUSATE (SENOKOT S) TABLET PO SCH ×2 (08:23→19:52)
[2018-10-23] MEDS: POLYETHYLENE GLYCOL 17 GM (MIRALAX) PACK PO SCH ×2 (08:23→19:52)
[2018-10-23] MEDS: MAGNESIUM OXIDE (MAG-OX)400 MG TAB PO SCH ×2 (08:35→18:37)
[2018-10-23] MEDS: FUROSEMIDE 40 MG/4 ML INJ (LASIX) IVP SCH (09:18)
[2018-10-23] MEDS: CLOPIDOGREL 75 MG (PLAVIX) TABLET PO SCH (09:19)
[2018-10-23] MEDS: ASPIRIN 81 MG CHEW (CHILDREN'S ASA) PO SCH (09:19)
--- NOTE | 2018-10-23 10:26 | Pulmonary Progress Note ---
Subjective Time Seen by a Provider: 10:25 Subjective/Events-last exam Pt appears to be doing better. Sepsis Event Evaluation Height, Weight, BMI Height: 5'8.00" Weight: 162lbs. 7.0oz. 73.567811vp; 25.1 BMI Method:Stated Exam Exam Vital Signs Date Time Temp Pulse Resp B/P (MAP) Pulse Ox O2 Delivery O2 Flow Rate FiO2 10/23/18 09:50 98.2 10/23/18 09:00 High Flow N/C 4.00 10/23/18 07:28 98 High Flow N/C 3.00 10/23/18 05:38 98.2 106 16 151/87 (108) 94 Nasal Cannula 5.00 10/23/18 01:30 92 High Flow N/C 4.00 10/22/18 21:00 High Flow N/C 4.00 10/22/18 18:56 98 High Flow N/C 4.00 10/22/18 18:45 97 High Flow N/C 5.00 10/22/18 18:10 97.2 94 16 142/70 (94) 98 Nasal Cannula 5.00 10/22/18 15:12 95 High Flow N/C 5.00 I & O 10/23/18 07:00 Intake Total 1890 ml Output Total 3295 ml Balance -1405 ml Height & Weight Height: 5'8.00" Weight: 162lbs. 7.0oz. 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
--- NOTE | 2018-10-23 12:00 | Physical Therapy Daily Note ---
PT Daily Note-Current Subjective Pt initially stating she is not going to do anything, then with encouragement was agreeable to PT Pain Numeric Pain Scale: 10-Worst Possible Pain Comment: juan LE's Appearance Pre PT, pt supine in bed with head elevated, awake and alert At end of session, pt sitting up in recliner with footrest elevated, phone, bedside table and call light within reach. Nsg present and with pt Transfers Therapy Code Descriptions/Definitions Functional [place] Measure: 0=Not Assessed/NA 4=Minimal Assistance 1=Total Assistance 5=Supervision or Setup 2=Maximal Assistance 6=Modified [place] 3=Moderate Assistance 7=Complete [place] Therapy Quality Codes: 6 Independent with activity with or without an assistive device 5 Patient requires set up or clean up by helper. Patient completes activity by themselves 4 Supervision or touching assist (CGA). [place] provide cues , steadying assist 3 The helper provides less than half the effort to complete the activity 2 The helper provides more than half the effort to complete the activity 1 Dependent. The helper does all the effort to complete an activity 7 Patient refused to complete or attempt activity 9 The patient did not perform the activity before the current illness or injury 88 Not attempted due to Medical conditions or safety concerns Transfers (B, C, W/C) (FIM): 2 Scootin (max encouragement and instruction) Rollin Roll Left to Right (QC): 5 Supine to/from Sit: 5 (requiring max encouragement and instruction) Sit to/from Stand: 2 (c/o LLE too painful to bear wt) Bed to/from Chair: 2 Pt is able to perform bed mobility and supine to sit with SBA but requiring max instruction and encouragement to do without assist Weight Bearing BKA RLE Treatments bed mobility and transfer training Assessment Current Status: Fair Progress PT Short Term Goals Short Term Goals Transfers (B,C,W/C) (FIM): 4 PT Traveling Missionary Goals Mcfp Goals PT Traveling Missionary Goals Time Frame: Oct 29, 2018 Transfers (B,C,W/C) (FIM): 4 Sit to Lying (QC): 3 Lying-Sitting on Side/Bed(QC): 3 Sit to Stand (QC): 3 Rollin Roll Left to Right (QC): 3 Chair/Sfj-do-Eyxgb Xfer(QC): 3 Gait (FIM): 1 Distance: 5' Gait Level of Assist: 3 Gait Assistive Device: FWW PT Plan Problem List Problem List: Activity Tolerance, Functional Strength, Safety, Balance, Gait, Transfer, Bed Mobility, ROM Treatment/Plan Treatment Plan: Continue Plan of Care Treatment Plan: Bed Mobility, Concurrent Therapy, Education, Functional Activity Andrzej, Functional Strength, Gait, Safety, Therapeutic Exercise, Transfers Treatment Duration: Oct 29, 2018 Frequency: 6 times per week Estimated Hrs Per Day: .25 hour per day (15-30') Patient and/or Family Agrees t: Yes Safety Risks/Education Patient Education: Transfer Techniques, Correct Positioning, Safety Issues Teaching Recipient: Patient Teaching Methods: Demonstration, Discussion Response to Teaching: Verbalize Understanding, Return Demonstration, Reinforcement Needed Time/GCodes Time In: 1043 Time Out: 1100 Total Billed Treatment Time: 17 Total Billed Treatment 1 visit FA 17 min MARYAM SHI PTA Oct 23, 2018 12:00
--- NOTE | 2018-10-23 12:18 | Progress Note-Hospitalist ---
Subjective HPI/CC On Admission Date Seen by Provider: Oct 23, 2018 Time Seen by Provider: 11:45 Subjective/Events-last exam Patient doing well Diuresis is really helped her Less short of breath and no crackles on lung exam Bowel movements are regular Pain is controlled Hopefully inpatient rehab at the first of the week Maintain on oxygen Nebulizer treatments are tolerated Blood sugars satisfactory Awaiting lab results Review of Systems General: Fatigue Musculoskeletal: leg pain Objective Exam Vital Signs Vital Signs Date Time Temp Pulse Resp B/P (MAP) Pulse Ox O2 Delivery O2 Flow Rate FiO2 10/23/18 12:25 98.2 10/23/18 09:00 High Flow N/C 4.00 10/23/18 07:28 98 10/23/18 05:38 106 16 151/87 (108) Capillary Refill : General Appearance: No Apparent Distress, WD/WN, Chronically ill Respiratory: Chest Non Tender, Lungs Clear, Normal Breath Sounds, No Accessory Muscle Use, No Respiratory Distress Cardiovascular: Regular Rate, Rhythm, No Edema, No Gallop, No JVD, No Murmur, Normal Peripheral Pulses Neurologic/Psychiatric: Alert, Oriented x3, No Motor/Sensory Deficits, Depressed Affect Results/Procedures Lab Laboratory Tests 10/23/18 12:59 Patient resulted labs reviewed. Assessment/Plan Assessment and Plan Assess & Plan/Chief Complaint Assessment: Right acute infected diabetic ulcer of the right foot with gangrene in need of below the knee amputation due to unsuccessful intervention for vascular compromise s/p uncomplicated right BKA Chronic atrial fibrillation on anticoagulation Valvular heart disease with systolic murmur Hypertension Diabetes mellitus Hyperlipidemia Anemia Bloody stools consulting general surgery Hypothyroidism Dementia Iron deficiency receiving iron infusions Plan: Monitor closely Pain control IRF soon O2 Maintain IV Lasix Diagnosis/Problems Diagnosis/Problems (1) Amputated below knee Status: Acute Qualifiers: Laterality: right Qualified Codes: Z89.511 - Acquired absence of right leg below knee (2) Gangrene of right foot Status: Resolved Resolution Date/Time: 10/21/18 @ 11:01 (3) Right foot ulcer Status: Resolved Resolution Date/Time: 10/21/18 @ 11:02 (4) Respiratory insufficiency Status: Resolved Resolution Date/Time: 10/19/18 @ 10:06 (5) Hypoxemia Status: Chronic (6) Tachypnea Status: Resolved Resolution Date/Time: 10/19/18 @ 10:06 (7) Presence of stent in coronary artery in patient with coronary artery disease Status: Chronic (8) Hypothyroidism Status: Chronic Qualifiers: Hypothyroidism type: acquired Qualified Codes: E03.9 - Hypothyroidism, unspecified (9) Hypertension Status: Chronic Qualifiers: Hypertension type: essential hypertension Qualified Codes: I10 - Essential (primary) hypertension (10) Hyperlipemia Status: Chronic Qualifiers: Hyperlipidemia type: mixed hyperlipidemia Qualified Codes: E78.2 - Mixed hyperlipidemia (11) CHF (congestive heart failure) Status: Chronic Qualifiers: Heart failure type: unspecified Heart failure chronicity: unspecified Qualified Codes: I50.9 - Heart failure, unspecified (12) Anemia Status: Acute Qualifiers: Anemia type: iron deficiency Iron deficiency anemia type: chronic blood loss Qualified Codes: D50.0 - Iron deficiency anemia secondary to blood loss ( chronic) (13) Diabetes mellitus Status: Chronic Qualifiers: Diabetes mellitus type: type 2 Diabetes mellitus intermediate frame tender insulin use: with intermediate frame tender use Diabetes mellitus complication status: with circulatory complication Diabetes mellitus complication detail: with other circulatory complications Qualified Codes: E11.59 - Type 2 diabetes mellitus with other circulatory complications; Z79.4 - correction (current) use of insulin (14) Atrial fibrillation Status: Chronic Qualifiers: Atrial fibrillation type: paroxysmal Qualified Codes: I48.0 - Paroxysmal atrial fibrillation (15) COPD (chronic obstructive pulmonary disease) Status: Chronic Qualifiers: COPD type: unspecified COPD Qualified Codes: J44.9 - Chronic obstructive pulmonary disease, unspecified (16) Volume overload Status: Acute Qualifiers: Hypervolemia type: unspecified Qualified Codes: E87.70 - Fluid overload, unspecified (17) Hyponatremia Status: Acute Clinical Quality Measures DVT/VTE Risk/Contraindication: Risk Factor Score Per Nursin CHUCK NAVA DO Oct 23, 2018 12:18
[2018-10-23 13:06] LABS: BASOPHILS % (AUTO) 0 % (0-10); EOSINOPHILS # (AUTO) 0.1 10^3/uL (0.0-0.3); EOSINOPHILS % (AUTO) 1 % (0-10); HEMATOCRIT 29 % (35-52); HEMOGLOBIN 9.1 G/DL (11.5-16.0); LYMPHOCYTES # (AUTO) 0.8 X 10^3 (1.0-4.0); LYMPHOCYTES % (AUTO) 8 % (12-44); MEAN CORPUSCULAR HEMOGLOBIN 30 PG (25-34); MEAN CORPUSCULAR HGB CONC 31 G/DL (32-36); MEAN CORPUSCULAR VOLUME 96 FL (80-99); MEAN PLATELET VOLUME 9.5 FL (7.4-10.4); MONOCYTES # (AUTO) 1.4 X 10^3 (0.0-1.0); MONOCYTES % (AUTO) 13 % (0-12); NEUTROPHILS # (AUTO) 7.8 X 10^3 (1.8-7.8); NEUTROPHILS % (AUTO) 77 % (42-75); PLATELET COUNT 483 10^3/uL (130-400); RED BLOOD COUNT 3.08 10^6/uL (4.35-5.85); RED CELL DISTRIBUTION WIDTH 16.9 % (10.0-14.5); WHITE BLOOD COUNT 10.2 10^3/uL (4.3-11.0)
[2018-10-23 13:25] LABS: ALANINE AMINOTRANSFERASE 12 U/L (0-55); ALBUMIN 3.2 GM/DL (3.2-4.5); ALKALINE PHOSPHATASE 86 U/L (40-136); BILIRUBIN,TOTAL 0.4 MG/DL (0.1-1.0); BUN/CREATININE RATIO 21; CALCIUM 9.3 MG/DL (8.5-10.1); CARBON DIOXIDE 27 MMOL/L (21-32); CHLORIDE 92 MMOL/L (98-107); CREATININE SERUM 0.78 MG/DL (0.60-1.30); GFR ESTIMATED > 60; GLUCOSE 278 MG/DL (70-105); POTASSIUM 4.5 MMOL/L (3.6-5.0); SODIUM 133 MMOL/L (135-145); TOTAL PROTEIN 6.7 GM/DL (6.4-8.2)
[2018-10-23 17:45] VITALS: BP 158/70
[2018-10-23] MEDS: lisINopril 5 MG (PRINIVIL) TABLET PO SCH (20:19)
[2018-10-23] MEDS: NORTRIPTYLINE 25 MG (PAMELOR) CAP PO SCH (20:20)
[2018-10-23] MEDS: amLODIPine 5 MG (NORVASC) TAB PO SCH (20:20)
[2018-10-24] MEDS: RT-ALBUTEROL/IPRATROPIUM 3 ML (DUONEB) VIAL INH SCH ×4 (01:37→19:32)
[2018-10-24] MEDS: KCL 10 MEQ TAB (MICRO K) PO SCH (06:26)
[2018-10-24] MEDS: inSUlin ASPART (NovoLOG) 1 UNIT/0.01 ML (CHARGE PER UNIT) SC SCH ×4 (06:26→20:35)
[2018-10-24] MEDS: LEVOTHYROXINE 50 MCG (LEVOTHROID) TAB PO SCH (06:26)
[2018-10-24] MEDS: PANTOPRAZOLE 40 MG (PROTONIX) TAB PO SCH (06:26)
[2018-10-24] MEDS: HYDROcodone/APAP 5 MG/325 MG (LORTAB) TAB PO PRN ×2 (06:26→20:27)
[2018-10-24 06:35] LABS: BASOPHILS # (AUTO) 0.1 10^3/uL (0.0-0.1); BASOPHILS % (AUTO) 1 % (0-10); EOSINOPHILS # (AUTO) 0.2 10^3/uL (0.0-0.3); EOSINOPHILS % (AUTO) 2 % (0-10); HEMATOCRIT 28 % (35-52); HEMOGLOBIN 8.7 G/DL (11.5-16.0); LYMPHOCYTES # (AUTO) 1.1 X 10^3 (1.0-4.0); LYMPHOCYTES % (AUTO) 13 % (12-44); MEAN CORPUSCULAR HEMOGLOBIN 30 PG (25-34); MEAN CORPUSCULAR HGB CONC 31 G/DL (32-36); MEAN CORPUSCULAR VOLUME 95 FL (80-99); MEAN PLATELET VOLUME 9.3 FL (7.4-10.4); MONOCYTES # (AUTO) 1.3 X 10^3 (0.0-1.0); MONOCYTES % (AUTO) 15 % (0-12); NEUTROPHILS # (AUTO) 5.9 X 10^3 (1.8-7.8); NEUTROPHILS % (AUTO) 70 % (42-75); PLATELET COUNT 468 10^3/uL (130-400); RED BLOOD COUNT 2.95 10^6/uL (4.35-5.85); RED CELL DISTRIBUTION WIDTH 16.6 % (10.0-14.5); WHITE BLOOD COUNT 8.5 10^3/uL (4.3-11.0)
[2018-10-24 06:52] VITALS: BP 152/71
[2018-10-24 06:53] LABS: ALANINE AMINOTRANSFERASE 12 U/L (0-55); ALKALINE PHOSPHATASE 79 U/L (40-136); BILIRUBIN,TOTAL 0.5 MG/DL (0.1-1.0); BUN/CREATININE RATIO 19; CALCIUM 9.4 MG/DL (8.5-10.1); CARBON DIOXIDE 31 MMOL/L (21-32); CHLORIDE 93 MMOL/L (98-107); CREATININE SERUM 0.75 MG/DL (0.60-1.30); GFR ESTIMATED > 60; GLUCOSE 197 MG/DL (70-105); POTASSIUM 4.1 MMOL/L (3.6-5.0); SODIUM 134 MMOL/L (135-145); TOTAL PROTEIN 6.7 GM/DL (6.4-8.2)
[2018-10-24] MEDS: POLYETHYLENE GLYCOL 17 GM (MIRALAX) PACK PO SCH ×2 (07:57→19:28)
[2018-10-24] MEDS: SENNA W/DOCUSATE (SENOKOT S) TABLET PO SCH ×2 (07:58→19:28)
[2018-10-24] MEDS: CLOPIDOGREL 75 MG (PLAVIX) TABLET PO SCH (08:47)
[2018-10-24] MEDS: FUROSEMIDE 40 MG/4 ML INJ (LASIX) IVP SCH (08:47)
[2018-10-24] MEDS: MAGNESIUM OXIDE (MAG-OX)400 MG TAB PO SCH ×2 (08:47→16:51)
[2018-10-24] MEDS: ASPIRIN 81 MG CHEW (CHILDREN'S ASA) PO SCH (08:47)
[2018-10-24] MEDS: ADVAIR HFA 115/21 MCG INHALER 8 GM IH SCH ×2 (09:14→19:32)
[2018-10-24] MEDS: IRON SUCROSE 200 MG/10 ML (VENOFER) VIAL IV SCH (12:32)
--- NOTE | 2018-10-24 14:17 | Progress Note ---
Subjective Time Seen by a Provider: 12:41 Subjective/Events-last exam Pt seen and examined, has some minimal to moderate stump pain. Nurse stated they had to reinforce the dressing last night. Review of Systems General: No Chills, No Night Sweats Pulmonary: No Dyspnea, No Cough Cardiovascular: No: Chest Pain, Palpitations Objective Exam Vital Signs Date Time Temp Pulse Resp B/P (MAP) Pulse Ox O2 Delivery O2 Flow Rate FiO2 10/24/18 09:14 93 High Flow N/C 3.00 10/24/18 09:14 High Flow N/C 3.00 10/24/18 09:00 High Flow N/C 1.50 10/24/18 06:52 99.1 102 20 152/71 (98) 97 Nasal Cannula 2.00 10/24/18 01:38 93 High Flow N/C 3.00 10/23/18 21:00 High Flow N/C 2.00 10/23/18 19:16 High Flow N/C 3.00 10/23/18 19:10 93 High Flow N/C 3.00 10/23/18 17:45 98.2 98 20 158/70 (99) 95 Nasal Cannula 2.00 10/23/18 15:50 High Flow N/C 3.00 I & O 10/24/18 07:00 Intake Total 1910 ml Output Total 750 ml Balance 1160 ml Capillary Refill : General Appearance: No Apparent Distress, Chronically ill HEENT: PERRL/EOMI Respiratory: Chest Non Tender, Lungs Clear, Normal Breath Sounds, No Accessory Muscle Use, No Respiratory Distress Cardiovascular: Regular Rate, Rhythm, No Murmur Extremity: Other (incision is C/D/I, fluid filled blister on anterior aspect of leg, skin edges look good) Neurologic/Psychiatric: Alert, Depressed Affect Results Lab Laboratory Tests 10/24/18 06:30: White Blood Count 8.5, Red Blood Count 2.95L, Hemoglobin 8.7L, Hematocrit 28L, Mean Corpuscular Volume 95, Mean Corpuscular Hemoglobin 30, Mean Corpuscular Hemoglobin Concent 31L, Red Cell Distribution Width 16.6H, Platelet Count 468H, Mean Platelet Volume 9.3, Neutrophils (%) (Auto) 70, Lymphocytes (%) (Auto) 13, Monocytes (%) (Auto) 15H, Eosinophils (%) (Auto) 2, Basophils (%) (Auto) 1, Neutrophils # (Auto) 5.9, Lymphocytes # (Auto) 1.1, Monocytes # (Auto) 1.3H, Eosinophils # (Auto) 0.2, Basophils # (Auto) 0.1, Sodium Level 134L, Potassium Level 4.1, Chloride Level 93L, Carbon Dioxide Level 31, Anion Gap 10, Blood Urea Nitrogen 14, Creatinine 0.75, Estimat Glomerular Filtration Rate > 60, BUN/ Creatinine Ratio 19, Glucose Level 197H, Calcium Level 9.4, Corrected Calcium 10.2H, Total Bilirubin 0.5, Aspartate Amino Transf (AST/SGOT) 17, Alanine Aminotransferase (ALT/SGPT) 12, Alkaline Phosphatase 79, Total Protein 6.7, Albumin 3.0L Assessment/Plan Assessment/Plan Assessment/Plan S/P R BKA Dressing changed. PT to work with pt. I will follow along. Clinical Quality Measures DVT/VTE Risk/Contraindication: Risk Factor Score Per Nursin KIKE JACOBO DO Oct 24, 2018 14:17
[2018-10-24 18:05] VITALS: BP 161/73
[2018-10-24] MEDS: amLODIPine 5 MG (NORVASC) TAB PO SCH (20:26)
[2018-10-24] MEDS: NORTRIPTYLINE 25 MG (PAMELOR) CAP PO SCH (20:27)
[2018-10-24] MEDS: lisINopril 5 MG (PRINIVIL) TABLET PO SCH (20:27)
[2018-10-25] MEDS: RT-ALBUTEROL/IPRATROPIUM 3 ML (DUONEB) VIAL INH SCH ×4 (01:35→20:01)
[2018-10-25] MEDS: PANTOPRAZOLE 40 MG (PROTONIX) TAB PO SCH (05:54)
[2018-10-25] MEDS: inSUlin ASPART (NovoLOG) 1 UNIT/0.01 ML (CHARGE PER UNIT) SC SCH ×4 (05:54→21:02)
[2018-10-25] MEDS: LEVOTHYROXINE 50 MCG (LEVOTHROID) TAB PO SCH (05:54)
[2018-10-25] MEDS: KCL 10 MEQ TAB (MICRO K) PO SCH (05:54)
[2018-10-25] MEDS: HYDROcodone/APAP 5 MG/325 MG (LORTAB) TAB PO PRN (05:55)
[2018-10-25 06:16] VITALS: BP 154/73
[2018-10-25] MEDS: FUROSEMIDE 40 MG/4 ML INJ (LASIX) IVP SCH (07:37)
[2018-10-25] MEDS: MAGNESIUM OXIDE (MAG-OX)400 MG TAB PO SCH ×2 (07:37→17:17)
[2018-10-25] MEDS: CLOPIDOGREL 75 MG (PLAVIX) TABLET PO SCH (07:37)
[2018-10-25] MEDS: ASPIRIN 81 MG CHEW (CHILDREN'S ASA) PO SCH (07:37)
[2018-10-25] MEDS: POLYETHYLENE GLYCOL 17 GM (MIRALAX) PACK PO SCH ×2 (07:41→22:08)
[2018-10-25] MEDS: SENNA W/DOCUSATE (SENOKOT S) TABLET PO SCH ×2 (07:41→22:09)
[2018-10-25] MEDS: ADVAIR HFA 115/21 MCG INHALER 8 GM IH SCH ×2 (09:36→20:01)
--- NOTE | 2018-10-25 09:53 | NUR ---
CM/SS spoke with the daughter (Treesa Romero), she will speak with her brothers and let me know of a facility they would like referral packet sent to. She also plans to be at hospital this afternoon.
--- NOTE | 2018-10-25 10:01 | Progress Note-Hospitalist ---
CHUCK NAVA DO 10/25/18 1001: Subjective HPI/CC On Admission Date Seen by Provider: Oct 25, 2018 Time Seen by Provider: 09:00 Subjective/Events-last exam Patient doing ok Needs NHP not IRF Patient interested in Hospice soon which is reasonable O2 maintained Pt back to baseline to NH will be chosen by family today Review of Systems Musculoskeletal: leg pain Objective Exam Vital Signs Vital Signs Date Time Temp Pulse Resp B/P (MAP) Pulse Ox O2 Delivery O2 Flow Rate FiO2 10/25/18 09:41 Nasal Cannula 1.00 10/25/18 09:37 97 10/25/18 06:16 99.2 101 20 154/73 (100) Capillary Refill : General Appearance: No Apparent Distress, WD/WN, Chronically ill Respiratory: Chest Non Tender, Lungs Clear, Normal Breath Sounds, No Accessory Muscle Use, No Respiratory Distress Cardiovascular: Regular Rate, Rhythm, No Edema, No Gallop, No JVD, No Murmur, Normal Peripheral Pulses Neurologic/Psychiatric: Alert, Oriented x3, No Motor/Sensory Deficits, Normal Mood/Affect Results/Procedures Lab Patient resulted labs reviewed. Assessment/Plan Assessment and Plan Assess & Plan/Chief Complaint Assessment: Right acute infected diabetic ulcer of the right foot with gangrene in need of below the knee amputation due to unsuccessful intervention for vascular compromise s/p uncomplicated right BKA Chronic atrial fibrillation on anticoagulation Valvular heart disease with systolic murmur Hypertension Diabetes mellitus Hyperlipidemia Anemia Bloody stools consulting general surgery Hypothyroidism Dementia Iron deficiency receiving iron infusions Plan: Monitor closely Pain control NH tomorrow O2 Maintain diuresis Diagnosis/Problems Diagnosis/Problems (1) Amputated below knee Status: Acute Qualifiers: Laterality: right Qualified Codes: Z89.511 - Acquired absence of right leg below knee (2) Gangrene of right foot Status: Resolved Resolution Date/Time: 10/21/18 @ 11:01 (3) Right foot ulcer Status: Resolved Resolution Date/Time: 10/21/18 @ 11:02 (4) Respiratory insufficiency Status: Resolved Resolution Date/Time: 10/19/18 @ 10:06 (5) Hypoxemia Status: Chronic (6) Tachypnea Status: Resolved Resolution Date/Time: 10/19/18 @ 10:06 (7) Presence of stent in coronary artery in patient with coronary artery disease Status: Chronic (8) Hypothyroidism Status: Chronic Qualifiers: Hypothyroidism type: acquired Qualified Codes: E03.9 - Hypothyroidism, unspecified (9) Hypertension Status: Chronic Qualifiers: Hypertension type: essential hypertension Qualified Codes: I10 - Essential (primary) hypertension (10) Hyperlipemia Status: Chronic Qualifiers: Hyperlipidemia type: mixed hyperlipidemia Qualified Codes: E78.2 - Mixed hyperlipidemia (11) CHF (congestive heart failure) Status: Chronic Qualifiers: Heart failure type: unspecified Heart failure chronicity: unspecified Qualified Codes: I50.9 - Heart failure, unspecified (12) Anemia Status: Acute Qualifiers: Anemia type: iron deficiency Iron deficiency anemia type: chronic blood loss Qualified Codes: D50.0 - Iron deficiency anemia secondary to blood loss ( chronic) (13) Diabetes mellitus Status: Chronic Qualifiers: Diabetes mellitus type: type 2 Diabetes mellitus longterm insulin use: with longterm use Diabetes mellitus complication status: with circulatory complication Diabetes mellitus complication detail: with other circulatory complications Qualified Codes: E11.59 - Type 2 diabetes mellitus with other circulatory complications; Z79.4 - ad terminal makeup operator (current) use of insulin (14) Atrial fibrillation Status: Chronic Qualifiers: Atrial fibrillation type: paroxysmal Qualified Codes: I48.0 - Paroxysmal atrial fibrillation (15) COPD (chronic obstructive pulmonary disease) Status: Chronic Qualifiers: COPD type: unspecified COPD Qualified Codes: J44.9 - Chronic obstructive pulmonary disease, unspecified (16) Volume overload Status: Acute Qualifiers: Hypervolemia type: unspecified Qualified Codes: E87.70 - Fluid overload, unspecified (17) Hyponatremia Status: Acute Clinical Quality Measures DVT/VTE Risk/Contraindication: Risk Factor Score Per Nursin JAMEL ELMORE MEDICAL STUDENT 10/25/18 1129: Subjective Subjective/Events-last exam Pt states she is having phantom pain of her right leg. Other than the pain she states she is doing well. Denies any complaints of SOB, fever, chills Pt remained afebrile Assessment/Plan Assessment and Plan Assess & Plan/Chief Complaint Assessment: Right diabetic foot ulcer with gangrene - status post right BKA phantom limb pain Plan: Monitor patient closely continue pain control O2 continue lasix consider patient for inpatient rehab CHUCK NAVA DO Oct 25, 2018 10:01 JAMEL ELMORE MEDICAL STUDENT Oct 25, 2018 11:29
--- NOTE | 2018-10-25 10:22 | Cardiology Progress Note ---
Subjective Date Seen by Provider: Oct 25, 2018 Time Seen by Provider: 10:18 Subjective/Events-last exam patient is laying down in bed, still having pain at the stump. Review of Systems General: No Chills, No Night Sweats, No Fatigue, No Malaise, No Appetite, No Other HEENT: No Head Aches, No Visual Changes, No Eye Pain, No Ear Pain, No Dysphasia , No Sinus Congestion, No Post Nasal Drip, No Sore Throat, No Other Pulmonary: No Dyspnea, No Cough, No Pleuritic Chest Pain, No Other Cardiovascular: No: Chest Pain, Palpitations, Orthopnea, Paroxysmal Noc. Dyspnea, Edema, Lt Headedness, Other Objective-Cardiology Exam Last Set of Vital Signs Vital Signs 10/25/18 10/25/18 10/25/18 06:16 09:37 09:41 Temp 99.2 Pulse 101 Resp 20 B/P (MAP) 154/73 (100) Pulse Ox 97 O2 Delivery Nasal Cannula O2 Flow Rate 1.00 Capillary Refill : I&O Intake and Output 10/25/18 00:00 Intake Total 1710 ml Output Total 1200 ml Balance 510 ml Intake Oral 1710 ml Output Urine Total 1200 ml # Voids 4 # Bowel Movements 1 General: Alert, Oriented X3, Cooperative HEENT: Atraumatic, PERRLA Neck: Supple, No JVD, No Thyromegaly Lungs: Clear to Auscultation, Normal Air Movement Heart: Regular Rate, Normal S1, Normal S2, Other (systolic murmur at the left sternal border) Abdomen: Normal Bowel Sounds, Soft, No Tenderness, No Hepatosplenomegaly, No Masses Extremities: No Clubbing, No Cyanosis, Other (right BKA) Skin: No Rashes, No Breakdown, No Significant Lesion Neuro: Normal Speech, Sensation Intact Psych/Mental Status: Mental Status NL, Mood NL Results Lab Laboratory Tests Test 10/24/18 20:31 10/25/18 01:48 10/25/18 05:22 Range/Units Glucometer 46 *L 402 *H 317 H 70-110 MG/DL A/P-Cardiology Admission Diagnosis Right BKA Peripheral arterial disease Coronary artery disease Anemia Assessment/Plan 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 Continue to monitor Anemia, monitored by primary care physician. Transfuse as needed. Status post respiratory failure, improved. Continue to monitor Coronary artery disease, status post drug-eluting stent deployment using 2 stents to the LAD Promus Premier 3.012 mm and 3.58 mm, done by Dr. Clements. Patient is on aspirin and Plavix. Continue to monitor Aortic stenosis, echocardiogram showed normal LV size and function with ejection fraction 50-55 percent, moderate aortic valve stenosis with valve area 1.0 cm, severe pulmonary hypertension with PA pressure of 50 mmHg. Continue to monitor Patient was on Eliquis, currently in sinus rhythm with frequent APCs. Not sure about her history. currently off Eliquis, maintained on aspirin and Plavix. Continue to monitor Hypertension, continue to monitor blood pressure Hyperlipidemia, maintained on Crestor and Zetia, continue to monitor lipids Moderate bilateral carotid stenosis, diffuse atherosclerotic plaques will need to have workup done in the future regarding her carotids Diabetes mellitus, followed and managed by primary care physician History of heart disease. Clinical Quality Measures DVT/VTE Risk/Contraindication: Risk Factor Score Per Nursin GURWINDER CHINCHILLA MD Oct 25, 2018 10:22
[2018-10-25 12:00] VITALS: BP 143/69
--- NOTE | 2018-10-25 12:08 | Physical Therapy Daily Note ---
PT Daily Note-Current Subjective Patient is confused but agrees to PT. Mental Status Patient Orientation: Confused Transfers Therapy Code Descriptions/Definitions Functional [place] Measure: 0=Not Assessed/NA 4=Minimal Assistance 1=Total Assistance 5=Supervision or Setup 2=Maximal Assistance 6=Modified [place] 3=Moderate Assistance 7=Complete [place] Therapy Quality Codes: 6 Independent with activity with or without an assistive device 5 Patient requires set up or clean up by helper. Patient completes activity by themselves 4 Supervision or touching assist (CGA). [place] provide cues , steadying assist 3 The helper provides less than half the effort to complete the activity 2 The helper provides more than half the effort to complete the activity 1 Dependent. The helper does all the effort to complete an activity 7 Patient refused to complete or attempt activity 9 The patient did not perform the activity before the current illness or injury 88 Not attempted due to Medical conditions or safety concerns Transfers (B, C, W/C) (FIM): 1 Scootin Rollin Roll Left to Right (QC): 5 Supine to/from Sit: 5 Sit to/from Stand: 1 Sit to Lying (QC): 5 Sit to Stand (QC): 1 Chair/Klr-pd-Vvnon Xfer(QC): 1 Bed to/from Chair: 1 patient continues to be dependent with sit to stand and SPT bed to recliner Weight Bearing BKA RLE Exercises Supine Ex: Ankle pumps, Quad Set, Heel Slides Supine Reps: 10 (AP left Le only) Assessment Patient not progressing with sit to stand or SPT due to confusion, weakness, and over all debility. Physician notified. PT Short Term Goals Short Term Goals Transfers (B,C,W/C) (FIM): 4 PT Senior Care Goals Senior Care Goals PT Senior Care Goals Time Frame: Oct 29, 2018 Transfers (B,C,W/C) (FIM): 4 Sit to Lying (QC): 3 Lying-Sitting on Side/Bed(QC): 3 Sit to Stand (QC): 3 Rollin Roll Left to Right (QC): 3 Chair/Orv-ab-Xvevw Xfer(QC): 3 Gait (FIM): 1 Distance: 5' Gait Level of Assist: 3 Gait Assistive Device: FWW PT Plan Treatment/Plan Treatment Plan: Continue Plan of Care Treatment Plan: Bed Mobility, Concurrent Therapy, Education, Functional Activity Andrzej, Functional Strength, Gait, Safety, Therapeutic Exercise, Transfers Treatment Duration: Oct 29, 2018 Frequency: 6 times per week Estimated Hrs Per Day: .25 hour per day (15-30') Patient and/or Family Agrees t: Yes Discharge Recommendations Therapy D/C Recommendations: [facility] Placement, Intermediate (TCU/NH) Time/GCodes Time In: 1111 Time Out: 1126 Total Billed Treatment Time: 15 Total Billed Treatment 1 visit FA 15 min COSME ZABALA PT Oct 25, 2018 12:08
--- NOTE | 2018-10-25 13:24 | NUR ---
CM/SS spoke with daughter and she would like referral packet sent to [facility] for consideration. Referral packet sent to [facility].
--- NOTE | 2018-10-25 15:11 | NUR ---
CM/SS [facility] said they were not going to be able to accept the patient. Referral packet then sent to [facility] at the patient and her daughter's request.
--- NOTE | 2018-10-25 15:17 | NUR ---
CM/SS referral packet also sent to [facility] in [place], [place]. Due to the patient's secondary Medicaid being [place] and that was part of admission denial to [facility].
--- NOTE | 2018-10-25 16:14 | NUR ---
CM/SS [facility] will not accept the patient due to Skilled days remaining and then having [place] Medicaid.
--- NOTE | 2018-10-25 16:44 | Pulmonary Progress Note ---
Subjective Time Seen by a Provider: 07:42 Subjective/Events-last exam pt feels improved. No complications noted. Sepsis Event Evaluation Height, Weight, BMI Height: 5'8.00" Weight: 162lbs. 7.0oz. 73.867193oo; 25.1 BMI Method:Stated Exam Exam Vital Signs Date Time Temp Pulse Resp B/P (MAP) Pulse Ox O2 Delivery O2 Flow Rate FiO2 10/25/18 15:59 95 Nasal Cannula 1.00 10/25/18 12:00 97.2 97 18 143/69 (93) 96 Nasal Cannula 1.50 10/25/18 09:41 Nasal Cannula 1.00 10/25/18 09:37 97 Nasal Cannula 1.50 10/25/18 09:00 High Flow N/C 1.50 10/25/18 06:16 99.2 101 20 154/73 (100) 95 Nasal Cannula 1.50 10/25/18 01:35 91 Nasal Cannula 1.50 10/24/18 21:00 High Flow N/C 2.00 10/24/18 19:37 96 Nasal Cannula 1.00 10/24/18 19:32 95 Nasal Cannula 1.50 10/24/18 18:05 98.9 99 20 161/73 (102) 97 Nasal Cannula 1.50 I & O 10/25/18 07:00 Intake Total 2000 ml Output Total 1200 ml Balance 800 ml Height & Weight Height: 5'8.00" Weight: 162lbs. 7.0oz. 73.567968gw; 25.1 BMI Method:Stated General Appearance: No Apparent Distress, WD/WN, Chronically ill HEENT: PERRL/EOMI Respiratory: Chest Non Tender, Lungs Clear, Normal Breath Sounds, No Accessory Muscle Use, No Respiratory Distress Cardiovascular: Regular Rate, Rhythm, No Edema, No Gallop, No JVD, No Murmur, Normal Peripheral Pulses Extremity: Other (incision is C/D/I, fluid filled blister on anterior aspect of leg, skin edges look good) Neurologic/Psychiatric: Alert, Oriented x3, No Motor/Sensory Deficits, Normal Mood/Affect Results Lab Laboratory Tests 10/24/18 06:30 Assessment/Plan Assessment/Plan Acute on chronic respiratory failure - improving -Lasix Pulmonary edema -Lasix and monitor COPDAE SVNs -advair Gangrene 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 LILLIAN GONZALES DO Oct 25, 2018 16:44
--- NOTE | 2018-10-25 16:47 | Occupational Ther Daily Note ---
OT Current Status-Daily Note Subjective Pt sitting with her daughter in room. Pt stated ," I am doing good today. feeling lot better. " Pain Numeric Pain Scale: 5-Moderate Pain Location: Right Location Body Site: Calf Pain Description: Ache, Dull Mental Status/Objective Patient Orientation: Person, Place, Time Therapy Code Descriptions/Definitions Functional [place] Measure: 0=Not Assessed/NA 4=Minimal Assistance 1=Total Assistance 5=Supervision or Setup 2=Maximal Assistance 6=Modified [place] 3=Moderate Assistance 7=Complete [place] ADL-Treatment Pt seen for strengthening Ex to BUE , 20 reps with 1 lb wts Both elbow & shoulders Flexion / ext , 20 reps with yellow theraband in all planes of motion , washing face with wash rag with setup , Abdominal ex 10 reps with SBA . Pt very cooperative & doing good. Therapy Code Descriptions/Definitions Functional [place] Measure: 0=Not Assessed/NA 4=Minimal Assistance 1=Total Assistance 5=Supervision or Setup 2=Maximal Assistance 6=Modified [place] 3=Moderate Assistance 7=Complete [place] Therapy Quality Codes: 6 Independent with activity with or without an assistive device 5 Patient requires set up or clean up by helper. Patient completes activity by themselves 4 Supervision or touching assist (CGA). [place] provide cues , steadying assist 3 The helper provides less than half the effort to complete the activity 2 The helper provides more than half the effort to complete the activity 1 Dependent. The helper does all the effort to complete an activity 7 Patient refused to complete or attempt activity 9 The patient did not perform the activity before the current illness or injury 88 Not attempted due to Medical conditions or safety concerns Eating (FIM): 7 Eating (QC): 6 Grooming (FIM): 5 Oral Hygiene (QC): 5 Bathing (FIM): 0 Shower/Bathe Self (QC): 0 Upper Body (FIM): 0 Upper Body Dressing (QC): 0 Lower Body Dressing (FIM): 0 Lower Body Dressing (QC): 0 On/Off Footwear (QC): 0 Toileting (FIM): 0 Toileting Hygiene (QC): 0 Transfers (B, C, W/C) (FIM): 0 Toilet/Commode Transfer (FIM): 0 Toilet Transfer (QC): 0 Tub Transfer(FIM): 0 Shower Transfer(FIM): 0 Education OT Patient Education: Correct positioning, Instructions to caregiver, Safety issues Teaching Recipient: Patient, Primary Caregiver Teaching Methods: Demonstration Response to Teaching: Verbalize Understanding, Return Demonstration OT Short Term Goals Short Term Goals Time Frame: Nov 05, 2018 Eating(FIM): 7 Grooming(FIM): 7 Bathing(FIM): 4 Bathing Location: L Arm, R Arm, L Upper Leg, R Upper Leg, L Lower Leg ( including foot), Abdomen Upper Body Dressing(FIM): 4 Lower Body Dressing(FIM): 4 Toileting(FIM): 4 Transfers (B,C,W/C) (FIM): 4 Toilet/Commode Transfer(FIM): 4 Shower Transfer(FIM): 4 Additional Short Term Goals: 1-Demonstrate ADL Tasks, 2-Verbalize Understanding , 3-ImproveStrength/Andrzej 1=Demonstrate adherence to instructed precautions during ADL tasks. 2=Patient will verbalize/demonstrate understanding of assistive devices/ modifications for ADL. 3=Patient will improve strength/tolerance for activity to enable patient to perform ADL's. OT Residential Goals Pharmacy Laboratory Technician Goals Time Frame: Nov 19, 2018 Eating (FIM): 7 Eating (QC): 7 Groomin Oral Hygiene (QC): 6 Bathing(FIM): 5 Bathing Location: L Arm, R Arm, L Upper Leg, R Upper Leg, L Lower Leg ( including foot), Chest, Abdomen Shower/Bathe Self (QC): 5 Upper Body Dressing(FIM): 6 Upper Body Dressing (QC): 6 Lower Body Dressing(FIM): 5 Lower Body Dressing (QC): 5 Toileting(FIM): 6 Toileting Hygiene (QC): 6 Transfers (B,C,W/C) (FIM): 5 Toilet/Commode Transfer(FIM): 5 Toilet/Commode Transfer (QC): 5 Shower Transfer(FIM): 5 1=Demonstrate adherence to instructed precautions during ADL tasks. 2=Patient will verbalize/demonstrate understanding of assistive devices/ modifications for ADL. 3=Patient will improve strength/tolerance for activity to enable patient to perform ADL's. OT Education/Plan Problem List/Assessment Assessment: Decreased Activ Tolerance, Decreased Safety Aware, Decreased UE Strength, Dependent Transfers, Impaired Bed Mobility, Impaired Funct Balance, Impaired Self-Care Skills Discharge Recommendations Plan/Recommendations: Continue POC Therapy D/C Recommendations: Home w/ Family Support Barriers to Progress Rt BK Amputation Patient/Family Goals To return home Independently with AD. Treatment Plan/Plan of Care Patient would benefit from OT for education, treatment and training to promote independence in ADL's, mobility, safety and/or upper extremity function for ADL' s. Plan of Care: ADL Retraining, Caregiver Training, Functional Mobility Treatment Duration: Nov 19, 2018 Frequency: 5 times per week Estimated Hrs Per Day: .25 hour per day Agreement: Yes Rehab Potential: Guarded Time/GCodes Start Time: 15:30 Stop Time: 15:45 Total Time Billed (hr/min): 15 Billed Treatment Time 1, Ex 15 min CHALO TRIVEDI OT Oct 25, 2018 16:47
[2018-10-25 18:15] VITALS: BP 145/91
[2018-10-25] MEDS: NORTRIPTYLINE 25 MG (PAMELOR) CAP PO SCH (21:02)
[2018-10-25] MEDS: amLODIPine 5 MG (NORVASC) TAB PO SCH (21:02)
[2018-10-25] MEDS: lisINopril 5 MG (PRINIVIL) TABLET PO SCH (21:02)
[2018-10-26] MEDS: HYDROcodone/APAP 5 MG/325 MG (LORTAB) TAB PO PRN ×3 (00:05→16:20)
[2018-10-26] MEDS: RT-ALBUTEROL/IPRATROPIUM 3 ML (DUONEB) VIAL INH SCH ×4 (03:38→20:52)
[2018-10-26 05:48] LABS: HEMOGLOBIN 8.2 G/DL (11.5-16.0); MEAN PLATELET VOLUME 9.6 FL (7.4-10.4); RED BLOOD COUNT 2.77 10^6/uL (4.35-5.85); RED CELL DISTRIBUTION WIDTH 16.7 % (10.0-14.5); WHITE BLOOD COUNT 4.9 10^3/uL (4.3-11.0)
[2018-10-26 05:59] VITALS: BP 121/66
[2018-10-26 06:18] LABS: BUN/CREATININE RATIO 24; CALCIUM 8.7 MG/DL (8.5-10.1); CARBON DIOXIDE 27 MMOL/L (21-32); CHLORIDE 96 MMOL/L (98-107); CREATININE SERUM 0.71 MG/DL (0.60-1.30); GFR ESTIMATED > 60; GLUCOSE 214 MG/DL (70-105); SODIUM 133 MMOL/L (135-145)
[2018-10-26] MEDS: PANTOPRAZOLE 40 MG (PROTONIX) TAB PO SCH (06:39)
[2018-10-26] MEDS: LEVOTHYROXINE 50 MCG (LEVOTHROID) TAB PO SCH (06:40)
[2018-10-26] MEDS: inSUlin ASPART (NovoLOG) 1 UNIT/0.01 ML (CHARGE PER UNIT) SC SCH ×4 (06:40→21:44)
[2018-10-26] MEDS: KCL 10 MEQ TAB (MICRO K) PO SCH (06:40)
--- NOTE | 2018-10-26 07:45 | Pulmonary Progress Note ---
Sepsis Event Evaluation Height, Weight, BMI Height: 5'8.00" Weight: 162lbs. 7.0oz. 73.089358fm; 25.1 BMI Method:Stated Exam Exam Vital Signs Date Time Temp Pulse Resp B/P (MAP) Pulse Ox O2 Delivery O2 Flow Rate FiO2 10/26/18 05:59 98.9 99 16 121/66 (84) 94 Nasal Cannula 0.50 10/26/18 03:39 96 Nasal Cannula 0.50 10/25/18 21:00 High Flow N/C 1.50 10/25/18 20:08 Nasal Cannula 1.00 10/25/18 20:04 95 Nasal Cannula 1.00 10/25/18 18:15 99.1 97 18 145/91 (109) 94 Nasal Cannula 0.50 10/25/18 15:59 95 Nasal Cannula 1.00 10/25/18 12:00 97.2 97 18 143/69 (93) 96 Nasal Cannula 1.50 10/25/18 09:41 Nasal Cannula 1.00 10/25/18 09:37 97 Nasal Cannula 1.50 10/25/18 09:00 High Flow N/C 1.50 I & O 10/26/18 07:00 Intake Total 1260 ml Output Total 300 ml Balance 960 ml Height & Weight Height: 5'8.00" Weight: 162lbs. 7.0oz. 73.646137py; 25.1 BMI Method:Stated General Appearance: No Apparent Distress, WD/WN, Chronically ill HEENT: PERRL/EOMI Respiratory: Chest Non Tender, Lungs Clear, Normal Breath Sounds, No Accessory Muscle Use, No Respiratory Distress Cardiovascular: Regular Rate, Rhythm, No Edema, No Gallop, No JVD, No Murmur, Normal Peripheral Pulses Extremity: Other (incision is C/D/I, fluid filled blister on anterior aspect of leg, skin edges look good) Neurologic/Psychiatric: Alert, Oriented x3, No Motor/Sensory Deficits, Normal Mood/Affect Results Lab Laboratory Tests 10/26/18 05:40 Assessment/Plan Assessment/Plan Acute on chronic respiratory failure - improving -Lasix Pulmonary edema -Lasix and monitor COPDAE SVNs -advair Gangrene 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 LILLIAN GONZALES DO Oct 26, 2018 07:45
--- NOTE | 2018-10-26 08:08 | Cardiology Progress Note ---
Subjective Date Seen by Provider: Oct 26, 2018 Time Seen by Provider: 08:07 Subjective/Events-last exam patient is sitting in a chair, feeling better, still have phantom pain Review of Systems General: No Chills, No Night Sweats, No Fatigue, No Malaise, No Appetite, No Other HEENT: No Head Aches, No Visual Changes, No Eye Pain, No Ear Pain, No Dysphasia , No Sinus Congestion, No Post Nasal Drip, No Sore Throat, No Other Pulmonary: No Dyspnea, No Cough, No Pleuritic Chest Pain, No Other Cardiovascular: No: Chest Pain, Palpitations, Orthopnea, Paroxysmal Noc. Dyspnea, Edema, Lt Headedness, Other Objective-Cardiology Exam Last Set of Vital Signs Vital Signs 10/26/18 05:59 Temp 98.9 Pulse 99 Resp 16 B/P (MAP) 121/66 (84) Pulse Ox 94 O2 Delivery Nasal Cannula O2 Flow Rate 0.50 Capillary Refill : I&O Intake and Output 10/26/18 00:00 Intake Total 1240 ml Output Total 300 ml Balance 940 ml Intake Oral 1240 ml Output Urine Total 300 ml # Voids 3 # Bowel Movements 1 General: Alert, Oriented X3, Cooperative HEENT: Atraumatic, PERRLA Neck: Supple, No JVD, No Thyromegaly Lungs: Clear to Auscultation, Normal Air Movement Heart: Regular Rate, Normal S1, Normal S2, Other (systolic murmur at the left sternal border) Abdomen: Normal Bowel Sounds, Soft, No Tenderness, No Hepatosplenomegaly, No Masses Extremities: No Clubbing, No Cyanosis, Other (right BKA) Skin: No Rashes, No Breakdown, No Significant Lesion Neuro: Normal Speech, Sensation Intact Psych/Mental Status: Mental Status NL, Mood NL Results Lab Laboratory Tests 10/26/18 05:40 A/P-Cardiology Admission Diagnosis Right BKA Peripheral arterial disease Coronary artery disease Anemia Assessment/Plan 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 Continue to monitor Anemia, monitored by primary care physician. Transfuse as needed. Status post respiratory failure, improved. Continue to monitor Coronary artery disease, status post drug-eluting stent deployment using 2 stents to the LAD Promus Premier 3.012 mm and 3.58 mm, done by Dr. Clements. Patient is on aspirin and Plavix. Continue to monitor Aortic stenosis, echocardiogram showed normal LV size and function with ejection fraction 50-55 percent, moderate aortic valve stenosis with valve area 1.0 cm, severe pulmonary hypertension with PA pressure of 50 mmHg. Continue to monitor Patient was on Eliquis, currently in sinus rhythm with frequent APCs. Not sure about her history. currently off Eliquis, maintained on aspirin and Plavix. Continue to monitor Hypertension, continue to monitor blood pressure Hyperlipidemia, maintained on Crestor and Zetia, continue to monitor lipids Moderate bilateral carotid stenosis, diffuse atherosclerotic plaques will need to have workup done in the future regarding her carotids Diabetes mellitus, followed and managed by primary care physician History of heart disease. Clinical Quality Measures DVT/VTE Risk/Contraindication: Risk Factor Score Per Nursin GURWINDER CHINCHILLA MD Oct 26, 2018 08:08
--- NOTE | 2018-10-26 08:10 | Physical Therapy Daily Note ---
PT Daily Note-Current Subjective Patient is alert and cooperative on this date. Continues to be confused. Mental Status Patient Orientation: Confused Attachments: Oxygen Transfers Therapy Code Descriptions/Definitions Functional [place] Measure: 0=Not Assessed/NA 4=Minimal Assistance 1=Total Assistance 5=Supervision or Setup 2=Maximal Assistance 6=Modified [place] 3=Moderate Assistance 7=Complete [place] Therapy Quality Codes: 6 Independent with activity with or without an assistive device 5 Patient requires set up or clean up by helper. Patient completes activity by themselves 4 Supervision or touching assist (CGA). [place] provide cues , steadying assist 3 The helper provides less than half the effort to complete the activity 2 The helper provides more than half the effort to complete the activity 1 Dependent. The helper does all the effort to complete an activity 7 Patient refused to complete or attempt activity 9 The patient did not perform the activity before the current illness or injury 88 Not attempted due to Medical conditions or safety concerns Transfers (B, C, W/C) (FIM): 2 Scootin Rollin Roll Left to Right (QC): 5 Supine to/from Sit: 5 Sit to/from Stand: 2 Sit to Lying (QC): 5 Sit to Stand (QC): 2 Chair/Tgp-ef-Bfuju Xfer(QC): 2 Bed to/from Chair: 2 patient did assist with sit to stand and SPT bed to recliner Weight Bearing BKA RLE Exercises Seated Therapy Exercises: Ankle pumps, Long arc quads, Hip flexion Seated Reps: 15 (2 sets) Assessment Patient is up in recliner with needs met. From a PT standpoint, patient will require extended care facility for full recovery. PT Short Term Goals Short Term Goals Transfers (B,C,W/C) (FIM): 4 PT Detention Goals Shuttle Operator Goals PT Detention Goals Time Frame: Oct 29, 2018 Transfers (B,C,W/C) (FIM): 4 Sit to Lying (QC): 3 Lying-Sitting on Side/Bed(QC): 3 Sit to Stand (QC): 3 Rollin Roll Left to Right (QC): 3 Chair/Fwt-ft-Shnlp Xfer(QC): 3 Gait (FIM): 1 Distance: 5' Gait Level of Assist: 3 Gait Assistive Device: FWW PT Plan Treatment/Plan Treatment Plan: Continue Plan of Care Treatment Plan: Bed Mobility, Concurrent Therapy, Education, Functional Activity Andrzej, Functional Strength, Gait, Safety, Therapeutic Exercise, Transfers Treatment Duration: Oct 29, 2018 Frequency: 6 times per week Estimated Hrs Per Day: .25 hour per day (15-30') Patient and/or Family Agrees t: Yes Time/GCodes Time In: 745 Time Out: 801 Total Billed Treatment Time: 16 Total Billed Treatment 1 visit FA 16 min COSME ZABALA PT Oct 26, 2018 08:10
[2018-10-26] MEDS: FUROSEMIDE 20 MG (LASIX) TAB PO SCH (08:13)
[2018-10-26] MEDS: CLOPIDOGREL 75 MG (PLAVIX) TABLET PO SCH (08:14)
[2018-10-26] MEDS: ASPIRIN 81 MG CHEW (CHILDREN'S ASA) PO SCH (08:14)
[2018-10-26] MEDS: MAGNESIUM OXIDE (MAG-OX)400 MG TAB PO SCH ×2 (08:22→16:20)
[2018-10-26] MEDS: POLYETHYLENE GLYCOL 17 GM (MIRALAX) PACK PO SCH ×2 (08:37→21:44)
[2018-10-26] MEDS: SENNA W/DOCUSATE (SENOKOT S) TABLET PO SCH ×2 (08:37→21:43)
[2018-10-26] MEDS ORDERED: ASPI-999 PO (09:48)
[2018-10-26] MEDS ORDERED: FLUT12AE4 IH (09:48)
[2018-10-26] MEDS ORDERED: DOCU100C37 PO (09:48)
[2018-10-26] MEDS ORDERED: FURO20TA4 PO (09:48)
[2018-10-26] MEDS ORDERED: ACHD5005 PO (09:48)
--- NOTE | 2018-10-26 09:51 | Discharge Inst-Skilled Nursing ---
Discharge Inst-Skilled NF Patient Instructions Patient Problems: Right BKA COPD DM AF CRI CHF Goal: Independent ADL's Consult/Follow Up/Orders Follow Up Appt.: PCP in 2 weeks Skilled NF Admit to: Certification (SNF) I certify that SNF services are required to be given on an inpatient basis because of the above named patient's need for alf care on a continuing basis for the conditions(s) for which he/she was receiving inpatient hospital services prior to his/her transfer to the SNF. Long Term Facility Order: Nursing Services, Denture Finisher-Evaluate & Treat, Physical Therapy-Evaluate & Treat, Speech Language-Evaluate & Treat, Wound Care-Eval/Treat Discharge Diet: Low Sodium Diet, ADA Diet Daily Activity as Tolerated: Yes New & Resume Previous Orders Flores Selby Oct 26, 2018 09:49 FLORES SELBY DO Oct 26, 2018 09:51
--- NOTE | 2018-10-26 09:51 | Progress Note-Hospitalist ---
CHUCK NAVA DO 10/26/18 0951: Subjective HPI/CC On Admission Date Seen by Provider: Oct 26, 2018 Time Seen by Provider: 09:00 Subjective/Events-last exam Awaiting placement May need hospice in the near future No significant issues right now but patient appears to be very end-stage Overall doing well with amputation and pain is controlled Review of Systems General: Fatigue Musculoskeletal: leg pain Objective Exam Vital Signs Vital Signs Date Time Temp Pulse Resp B/P (MAP) Pulse Ox O2 Delivery O2 Flow Rate FiO2 10/26/18 17:55 97.6 95 18 126/69 (88) 96 Room Air 10/26/18 10:07 0.50 Capillary Refill : General Appearance: No Apparent Distress, WD/WN, Chronically ill Respiratory: Chest Non Tender, Lungs Clear, Normal Breath Sounds, No Accessory Muscle Use, No Respiratory Distress Cardiovascular: Regular Rate, Rhythm, No Edema, No Gallop, No JVD, Normal Peripheral Pulses, Systolic Murmur Neurologic/Psychiatric: Alert, Oriented x3, No Motor/Sensory Deficits, Normal Mood/Affect Skin: Normal Color, Warm/Dry Results/Procedures Lab Laboratory Tests 10/26/18 05:40 Patient resulted labs reviewed. Assessment/Plan Assessment and Plan Assess & Plan/Chief Complaint Assessment: Right acute infected diabetic ulcer of the right foot with gangrene in need of below the knee amputation due to unsuccessful intervention for vascular compromise s/p uncomplicated right BKA Chronic atrial fibrillation on anticoagulation Valvular heart disease with systolic murmur Hypertension Diabetes mellitus Hyperlipidemia Anemia Bloody stools consulting general surgery Hypothyroidism Dementia Iron deficiency receiving iron infusions Plan: Monitor closely Pain control NH tomorrow O2 Maintain diuresis Diagnosis/Problems Diagnosis/Problems (1) Amputated below knee Status: Acute Qualifiers: Laterality: right Qualified Codes: Z89.511 - Acquired absence of right leg below knee (2) Gangrene of right foot Status: Resolved Resolution Date/Time: 10/21/18 @ 11:01 (3) Right foot ulcer Status: Resolved Resolution Date/Time: 10/21/18 @ 11:02 (4) Respiratory insufficiency Status: Resolved Resolution Date/Time: 10/19/18 @ 10:06 (5) Hypoxemia Status: Chronic (6) Tachypnea Status: Resolved Resolution Date/Time: 10/19/18 @ 10:06 (7) Presence of stent in coronary artery in patient with coronary artery disease Status: Chronic (8) Hypothyroidism Status: Chronic Qualifiers: Hypothyroidism type: acquired Qualified Codes: E03.9 - Hypothyroidism, unspecified (9) Hypertension Status: Chronic Qualifiers: Hypertension type: essential hypertension Qualified Codes: I10 - Essential (primary) hypertension (10) Hyperlipemia Status: Chronic Qualifiers: Hyperlipidemia type: mixed hyperlipidemia Qualified Codes: E78.2 - Mixed hyperlipidemia (11) CHF (congestive heart failure) Status: Chronic Qualifiers: Heart failure type: unspecified Heart failure chronicity: unspecified Qualified Codes: I50.9 - Heart failure, unspecified (12) Anemia Status: Acute Qualifiers: Anemia type: iron deficiency Iron deficiency anemia type: chronic blood loss Qualified Codes: D50.0 - Iron deficiency anemia secondary to blood loss ( chronic) (13) Diabetes mellitus Status: Chronic Qualifiers: Diabetes mellitus type: type 2 Diabetes mellitus rat exterminator insulin use: with rat exterminator use Diabetes mellitus complication status: with circulatory complication Diabetes mellitus complication detail: with other circulatory complications Qualified Codes: E11.59 - Type 2 diabetes mellitus with other circulatory complications; Z79.4 - USP (current) use of insulin (14) Atrial fibrillation Status: Chronic Qualifiers: Atrial fibrillation type: paroxysmal Qualified Codes: I48.0 - Paroxysmal atrial fibrillation (15) COPD (chronic obstructive pulmonary disease) Status: Chronic Qualifiers: COPD type: unspecified COPD Qualified Codes: J44.9 - Chronic obstructive pulmonary disease, unspecified (16) Volume overload Status: Acute Qualifiers: Hypervolemia type: unspecified Qualified Codes: E87.70 - Fluid overload, unspecified (17) Hyponatremia Status: Acute Clinical Quality Measures DVT/VTE Risk/Contraindication: Risk Factor Score Per Nursin JAMEL ELMORE MEDICAL STUDENT 10/26/18 1219: Subjective Subjective/Events-last exam Pt states she feels much better today trying to get accustom to having the BKA pt denies much pain pt denies any fever Objective Exam General Appearance: No Apparent Distress, WD/WN HEENT: PERRL/EOMI Respiratory: Lungs Clear, Normal Breath Sounds Cardiovascular: Regular Rate, Rhythm, No Edema Extremity: Other (right BKA) Neurologic/Psychiatric: Alert, Oriented x3 Assessment/Plan Assessment and Plan Assess & Plan/Chief Complaint Assessment: Right diabetic foot ulcer with gangrene - status post right BKA - pain controlled phantom limb pain Plan: Monitor patient closely continue pain control O2 continue lasix arrange hospice for pt CHUCK NAVA DO Oct 26, 2018 09:51 JAMEL ELMORE MEDICAL STUDENT Oct 26, 2018 12:19
--- NOTE | 2018-10-26 10:01 | NUR ---
CM/SS followed up with [facility] in [place]. They are waiting for pre-certification before they can take her as an admission. Donna with their social media editor will contact me when they have pre-cert.
[2018-10-26] MEDS: ADVAIR HFA 115/21 MCG INHALER 8 GM IH SCH ×2 (10:07→20:52)
--- NOTE | 2018-10-26 12:00 | NUR ---
CM/SS sent info to [facility]. Patient's daughter was updated.
--- NOTE | 2018-10-26 16:08 | Occupational Ther Daily Note ---
OT Current Status-Daily Note Subjective On entering pt's room, a nurse told this therapist " she is doing much better today. I just transfered her form bed to bedside comod & back. Pt stated, " I am tired now. Pain Numeric Pain Scale: 5-Moderate Pain Location: Right Location Body Site: Calf Pain Description: Ache, Sharp Mental Status/Objective Patient Orientation: Person, Place, Time Therapy Code Descriptions/Definitions Functional [place] Measure: 0=Not Assessed/NA 4=Minimal Assistance 1=Total Assistance 5=Supervision or Setup 2=Maximal Assistance 6=Modified [place] 3=Moderate Assistance 7=Complete [place] ADL-Treatment Pt wiped her face , front & back of neck, brush her hairs with setup & SBA , slided up in bed to sit upright with min A . Participated in strengthening ex to BUE to increase activity tolerance, endurance, ROM, strength in BUE , supine to sit in bed to improve abdominal muscles . Pt performed 25 reps x 2 sets x 1 lb wt to both elbow & shoulders flex/ext & 30 reps with BUE in all planes of motion . Therapy Code Descriptions/Definitions Functional [place] Measure: 0=Not Assessed/NA 4=Minimal Assistance 1=Total Assistance 5=Supervision or Setup 2=Maximal Assistance 6=Modified [place] 3=Moderate Assistance 7=Complete [place] Therapy Quality Codes: 6 Independent with activity with or without an assistive device 5 Patient requires set up or clean up by helper. Patient completes activity by themselves 4 Supervision or touching assist (CGA). [place] provide cues , steadying assist 3 The helper provides less than half the effort to complete the activity 2 The helper provides more than half the effort to complete the activity 1 Dependent. The helper does all the effort to complete an activity 7 Patient refused to complete or attempt activity 9 The patient did not perform the activity before the current illness or injury 88 Not attempted due to Medical conditions or safety concerns Eating (FIM): 7 Eating (QC): 6 Grooming (FIM): 5 Oral Hygiene (QC): 5 Bathing (FIM): 0 Shower/Bathe Self (QC): 0 Upper Body (FIM): 4 Upper Body Dressing (QC): 4 Lower Body Dressing (FIM): 0 Education OT Patient Education: Correct positioning, Safety issues, Transfer techniques Teaching Recipient: Patient Teaching Methods: Demonstration, Discussion Response to Teaching: Verbalize Understanding, Return Demonstration OT Short Term Goals Short Term Goals Time Frame: Nov 05, 2018 Eating(FIM): 7 Grooming(FIM): 7 Bathing(FIM): 4 Bathing Location: L Arm, R Arm, L Upper Leg, R Upper Leg, L Lower Leg ( including foot), Abdomen Upper Body Dressing(FIM): 4 Lower Body Dressing(FIM): 4 Toileting(FIM): 4 Transfers (B,C,W/C) (FIM): 4 Toilet/Commode Transfer(FIM): 4 Shower Transfer(FIM): 4 Additional Short Term Goals: 1-Demonstrate ADL Tasks, 2-Verbalize Understanding , 3-ImproveStrength/Andrzej 1=Demonstrate adherence to instructed precautions during ADL tasks. 2=Patient will verbalize/demonstrate understanding of assistive devices/ modifications for ADL. 3=Patient will improve strength/tolerance for activity to enable patient to perform ADL's. OT Senior Living Goals Senior Living Goals Time Frame: Nov 19, 2018 Eating (FIM): 7 Eating (QC): 7 Groomin Oral Hygiene (QC): 6 Bathing(FIM): 5 Bathing Location: L Arm, R Arm, L Upper Leg, R Upper Leg, L Lower Leg ( including foot), Chest, Abdomen Shower/Bathe Self (QC): 5 Upper Body Dressing(FIM): 6 Upper Body Dressing (QC): 6 Lower Body Dressing(FIM): 5 Lower Body Dressing (QC): 5 Toileting(FIM): 6 Toileting Hygiene (QC): 6 Transfers (B,C,W/C) (FIM): 5 Toilet/Commode Transfer(FIM): 5 Toilet/Commode Transfer (QC): 5 Shower Transfer(FIM): 5 1=Demonstrate adherence to instructed precautions during ADL tasks. 2=Patient will verbalize/demonstrate understanding of assistive devices/ modifications for ADL. 3=Patient will improve strength/tolerance for activity to enable patient to perform ADL's. OT Education/Plan Problem List/Assessment Assessment: Decreased Activ Tolerance, Decreased Safety Aware, Decreased UE Strength, Dependent Transfers, Impaired Bed Mobility, Impaired Coordination, Impaired Funct Balance, Impaired Self-Care Skills Discharge Recommendations Plan/Recommendations: Continue POC Therapy D/C Recommendations: Home w/ Family Support, Occupational Therapy Home Care Equpiment Recommendations-D/C: Rails on Tub/Shower, Extended Shower Sprayer, Global Chief Experience Officer, [place] Treatment Plan/Plan of Care Treatment,Training & Education: Yes Patient would benefit from OT for education, treatment and training to promote independence in ADL's, mobility, safety and/or upper extremity function for ADL' s. Plan of Care: ADL Retraining, Caregiver Training, Functional Mobility Treatment Duration: Nov 19, 2018 Frequency: 5 times per week Estimated Hrs Per Day: .25 hour per day Agreement: Yes Rehab Potential: Good Time/GCodes Start Time: 15:05 Stop Time: 15:40 Total Time Billed (hr/min): 35 Billed Treatment Time 1, Ex 35 min 1505- 1540 Total 35 min. CHALO TRIVEDI OT Oct 26, 2018 16:08
[2018-10-26 17:55] VITALS: BP 126/69
[2018-10-26] MEDS: lisINopril 5 MG (PRINIVIL) TABLET PO SCH (21:43)
[2018-10-26] MEDS: amLODIPine 5 MG (NORVASC) TAB PO SCH (21:43)
[2018-10-26] MEDS: NORTRIPTYLINE 25 MG (PAMELOR) CAP PO SCH (21:43)
[2018-10-27] MEDS: RT-ALBUTEROL/IPRATROPIUM 3 ML (DUONEB) VIAL INH SCH ×2 (02:04→10:44)
[2018-10-27 05:55] VITALS: BP 140/74
[2018-10-27] MEDS: LEVOTHYROXINE 50 MCG (LEVOTHROID) TAB PO SCH (05:58)
[2018-10-27] MEDS: inSUlin ASPART (NovoLOG) 1 UNIT/0.01 ML (CHARGE PER UNIT) SC SCH ×2 (05:59→11:33)
[2018-10-27] MEDS: PANTOPRAZOLE 40 MG (PROTONIX) TAB PO SCH (05:59)
[2018-10-27] MEDS: KCL 10 MEQ TAB (MICRO K) PO SCH (05:59)
[2018-10-27] MEDS: SENNA W/DOCUSATE (SENOKOT S) TABLET PO SCH (07:59)
[2018-10-27] MEDS: MAGNESIUM OXIDE (MAG-OX)400 MG TAB PO SCH (07:59)
[2018-10-27] MEDS: CLOPIDOGREL 75 MG (PLAVIX) TABLET PO SCH (07:59)
[2018-10-27] MEDS: POLYETHYLENE GLYCOL 17 GM (MIRALAX) PACK PO SCH (08:00)
[2018-10-27] MEDS: HYDROcodone/APAP 5 MG/325 MG (LORTAB) TAB PO PRN (08:00)
[2018-10-27] MEDS: FUROSEMIDE 20 MG (LASIX) TAB PO SCH (08:00)
[2018-10-27] MEDS: ASPIRIN 81 MG CHEW (CHILDREN'S ASA) PO SCH (08:00)
--- NOTE | 2018-10-27 08:28 | NUR ---
CM/SS [facility] has been able to get insurance to approve, they need Teresa (daughter) to fill out paperwork before they could take the patient.
[2018-10-27] MEDS ORDERED: APIXABAN 5 MG (ELIQUIS) TABLET PO SCH (09:00)
--- NOTE | 2018-10-27 09:24 | NUR ---
BRYCE/MARCELINA spoke with Teresa and she is going to get to [place] this morning to fill out the paperwork they need before can take her.
--- NOTE | 2018-10-27 09:41 | Cardiology Progress Note ---
Subjective Date Seen by Provider: Oct 27, 2018 Time Seen by Provider: 08:55 Subjective/Events-last exam Patient is sitting up in chair, denies any chest pain or dyspnea. Objective-Cardiology Exam Last Set of Vital Signs Vital Signs 10/26/18 10/27/18 21:00 05:55 Temp 97.5 Pulse 85 Resp 20 B/P (MAP) 140/74 (96) Pulse Ox 96 O2 Delivery Room Air O2 Flow Rate 1.50 Capillary Refill : I&O Intake and Output 10/27/18 00:00 Intake Total 1480 ml Balance 1480 ml Intake Oral 1480 ml # Voids 11 # Urine Diapers 2 # Bowel Movements 4 General: Alert, Oriented X3, Cooperative HEENT: Atraumatic, PERRLA Neck: Supple, No JVD, No Thyromegaly Lungs: Clear to Auscultation, Normal Air Movement Heart: Regular Rate, Normal S1, Normal S2, Other (systolic murmur at the left sternal border) Abdomen: Normal Bowel Sounds, Soft, No Tenderness, No Hepatosplenomegaly, No Masses Extremities: No Clubbing, No Cyanosis, Other (right BKA) Skin: No Rashes, No Breakdown, No Significant Lesion Neuro: Normal Speech, Sensation Intact Psych/Mental Status: Mental Status NL, Mood NL A/P-Cardiology Admission Diagnosis Right BKA Peripheral arterial disease Coronary artery disease Anemia Assessment/Plan 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 Continue to monitor Anemia, monitored by primary care physician. Transfuse as needed. Status post respiratory failure, improved. Continue to monitor Coronary artery disease, status post drug-eluting stent deployment using 2 stents to the LAD Promus Premier 3.012 mm and 3.58 mm, done by Dr. Clements. Patient is on aspirin and Plavix. Continue to monitor Aortic stenosis, echocardiogram showed normal LV size and function with ejection fraction 50-55 percent, moderate aortic valve stenosis with valve area 1.0 cm, severe pulmonary hypertension with PA pressure of 50 mmHg. Continue to monitor Paroxysmal atrial fibrillation- restarted on Eliquis, continue to monitor. Hypertension, continue to monitor blood pressure Hyperlipidemia, maintained on Crestor and Zetia, continue to monitor lipids Moderate bilateral carotid stenosis, diffuse atherosclerotic plaques will need to have workup done in the future regarding her carotids Diabetes mellitus, followed and managed by primary care physician History of heart disease. Clinical Quality Measures DVT/VTE Risk/Contraindication: Risk Factor Score Per Nursin FRAN TONY Oct 27, 2018 09:41
--- NOTE | 2018-10-27 09:53 | Discharge Summary-Hospitalist ---
CHUCK NAVA DO 10/27/18 0953: Diagnosis/Chief Complaint Date of Admission Oct 22, 2018 at 10:59 Date of Discharge Discharge Date: Oct 26, 2018 Discharge Diagnosis (1) Amputated below knee Status: Acute (2) Gangrene of right foot Status: Resolved (3) Right foot ulcer Status: Resolved (4) Respiratory insufficiency Status: Resolved (5) Hypoxemia Status: Chronic (6) Tachypnea Status: Resolved (7) Presence of stent in coronary artery in patient with coronary artery disease Status: Chronic (8) Hypothyroidism Status: Chronic (9) Hypertension Status: Chronic (10) Hyperlipemia Status: Chronic (11) CHF (congestive heart failure) Status: Chronic (12) Anemia Status: Acute (13) Diabetes mellitus Status: Chronic (14) Atrial fibrillation Status: Chronic (15) COPD (chronic obstructive pulmonary disease) Status: Chronic (16) Volume overload Status: Acute (17) Hyponatremia Status: Acute Discharge Summary Discharge Physical Exam Allergies: Coded Allergies: codeine (Verified Allergy, Unknown, 10/16/18) Vitals & I&Os Vital Signs Date Time Temp Pulse Resp B/P (MAP) Pulse Ox O2 Delivery O2 Flow Rate FiO2 10/27/18 10:49 Nasal Cannula 1.00 10/27/18 10:44 96 10/27/18 05:55 97.5 85 20 140/74 (96) General Appearance: No Apparent Distress, WD/WN, Chronically ill Respiratory: Chest Non Tender, Lungs Clear, Normal Breath Sounds, No Accessory Muscle Use, No Respiratory Distress Cardiovascular: Regular Rate, Rhythm, No Edema, No Gallop, No JVD, Normal Peripheral Pulses, Systolic Murmur, Irregularly Irregular Neurologic/Psychiatric: Alert, Oriented x3, No Motor/Sensory Deficits, Normal Mood/Affect, Disoriented Hospital Course Hospital course: patient had a lengthy hospital course on swing bed due to comorbidities and slow recovery. She had an uncomplicated right BKA by Dr Garcia. EGD/Colon revealed no evidence of bleeding after melena was reported and anticoagulation was restarted at DC. Plavix and ASA maintained for recent stent in LAD 08/29. Home meds restarted and patient was able to be DC to [facility] for permanent status for 24/ nursing care. Labs (last 24 hrs) Laboratory Tests 10/26/18 15:15: Glucometer 85 10/26/18 20:19: Glucometer 180H 10/27/18 05:19: Glucometer 207H Patient resulted labs reviewed. Pending Labs Laboratory Tests 10/27/18 05:19: Glucometer 207 Discussion & Recommendations Discharge Planning: <30 minutes discharge planning Discharge Home Medications: Active Scripts Active Docusate Sodium 100 Mg Capsule 100 Mg PO BID PRN 30 Days Advair Hfa 115-21 Mcg Inhaler (Fluticasone/Salmeterol) 12 Gm Hfa.aer.ad 0 Puff IH BID@08,20 30 Days Furosemide 20 Mg Tablet 20 Mg PO DAILY 30 Days Hydrocodone/Acetaminophen 5/325mg Tablet (Acetaminophen/Hydrocodone Bitart) 1 Tab Tab 1 Tab PO Q4H PRN Aspirin 81 Mg Tab.chew 81 Mg PO DAILY@0900 30 Days Reported Proair Hfa (Albuterol Sulfate) 1 Puff Puff 2 Puff IH Q4H PRN 1 PUFF = 90 MCG Tylenol Extra Strength (Acetaminophen) 500 Mg Tablet 1,000 Mg PO Q6H PRN Vitamin B-6 (Pyridoxine HCl) 100 Mg Tablet 100 Mg PO DAILY Vitamin C (Ascorbate Calcium) 500 Mg Tablet 500 Mg PO DAILY Advil (Ibuprofen) 200 Mg Tablet 200 Mg PO Q4H PRN Iron (Ferrous Sulfate) 325 Mg Tablet 325 Mg PO DAILY Vitamin D3 (Cholecalciferol (Vitamin D3)) 2,000 Unit Capsule 2,000 Unit PO DAILY Vitamin E (Vitamin E (Dl,Tocopheryl Acet)) 200 Unit Capsule 200 Unit PO DAILY Plavix (Clopidogrel Bisulfate) 75 Mg Tablet 75 Mg PO DAILY Humalog Kwikpen (Insulin Lispro) 100 Unit/1 Ml Insuln.pen 10 Unit SQ TIDAC PRN Eliquis (Apixaban) 5 Mg Tablet 5 Mg PO BID Metformin HCl ER (Metformin HCl) 500 Mg Tab.er.24h 1,000 Mg PO BID TAKES 2 (500MG) TABLETS Lisinopril 5 Mg Tablet 5 Mg PO HS Nortriptyline HCl 25 Mg Capsule 25 Mg PO HS LAST FILLED #90 06-11-18 Levothyroxine Sodium 50 Mcg Tablet 50 Mcg PO DAILY Amlodipine Besylate 5 Mg Tablet 5 Mg PO HS Esomeprazole Magnesium 40 Mg Capsule.dr 40 Mg PO DAILY Atorvastatin Calcium 80 Mg Tablet 80 Mg PO HS Diltiazem 24Hr ER (Diltiazem HCl) 180 Mg Cap.er.24h 180 Mg PO DAILY LAST FILLED #90 8-31-18 [place] 3 1,000 mg Softgel ([place]-3 Fatty Acids/Fish Oil) 1 Each Capsule 1 Cap PO DAILY Instructions to patient/family Please see electronic discharge instructions given to patient. Clinical Quality Measures DVT/VTE Risk/Contraindication: Risk Factor Score Per Nursin JAMEL ELMORE MEDICAL STUDENT 10/27/18 1054: Discharge Summary Discharge Physical Exam Allergies: Coded Allergies: codeine (Verified Allergy, Unknown, 10/16/18) General Appearance: No Apparent Distress HEENT: PERRL/EOMI Respiratory: Chest Non Tender, Normal Breath Sounds, No Respiratory Distress Cardiovascular: Regular Rate, Rhythm, Systolic Murmur Extremity: Other (right BKA) Neurologic/Psychiatric: Alert, Oriented x3 Hospital Course this is an 82 year old female who was admitted on 10/14 for medical optimization prior to right BKA. Pt had necrotic area of her right 1st toe that extended up to midfoot. Pt was placed on Zosyn and Vanc. US of RLE showed trifurcation disease. Pt's hospital stay was complicated by an episode of ARDS vs CHF exacerbation on 10/17 and was transferred to the ICU and given lasix. Pt stabilized and had central line placed on 10/20. Pt was able to have right BKA on 10/19. During the hospital stay, pt and family decided to become DNR. Due to patients prior heart stent on 08/29 and remained on Lovonox and ASA prior to surgery but her other anticoagulation was DC'd prior to surgery. Pt was discovered to be anemia and received an iron infusion. Problem Qualifiers (1) Amputated below knee: Laterality: right Qualified Codes: Z89.511 - Acquired absence of right leg below knee (2) Hypothyroidism: Hypothyroidism type: acquired Qualified Codes: E03.9 - Hypothyroidism, unspecified (3) Hypertension: Hypertension type: essential hypertension Qualified Codes: I10 - Essential ( primary) hypertension (4) Hyperlipemia: Hyperlipidemia type: mixed hyperlipidemia Qualified Codes: E78.2 - Mixed hyperlipidemia (5) CHF (congestive heart failure): Heart failure type: unspecified Heart failure chronicity: unspecified Qualified Codes: I50.9 - Heart failure, unspecified (6) Anemia: Anemia type: iron deficiency Iron deficiency anemia type: chronic blood loss Qualified Codes: D50.0 - Iron deficiency anemia secondary to blood loss ( chronic) (7) Diabetes mellitus: Diabetes mellitus type: type 2 Diabetes mellitus halfway insulin use: with terminal supervisor use Diabetes mellitus complication status: with circulatory complication Diabetes mellitus complication detail: with other circulatory complications Qualified Codes: E11.59 - Type 2 diabetes mellitus with other circulatory complications; Z79.4 - terminal carman (current) use of insulin (8) Atrial fibrillation: Atrial fibrillation type: paroxysmal Qualified Codes: I48.0 - Paroxysmal atrial fibrillation (9) COPD (chronic obstructive pulmonary disease): COPD type: unspecified COPD Qualified Codes: J44.9 - Chronic obstructive pulmonary disease, unspecified (10) Volume overload: Hypervolemia type: unspecified Qualified Codes: E87.70 - Fluid overload, unspecified CHUCK NAVA DO Oct 27, 2018 09:53 JAMEL ELMORE MEDICAL STUDENT Oct 27, 2018 10:54
[2018-10-27] MEDS: ADVAIR HFA 115/21 MCG INHALER 8 GM IH SCH ×2 (10:44→10:50)
--- NOTE | 2018-10-27 12:58 | NUR ---
CM/SS spoke with Teresa and [facility], patient will transport this day with Karime Mccord. Discharge information and medications were faxed.
--- NOTE | 2018-10-27 13:06 | Cardiology Progress Note ---
Subjective Date Seen by Provider: Oct 27, 2018 Time Seen by Provider: 13:05 Subjective/Events-last exam patient is laying down in bed. Feeling better. No new complaint. Review of Systems General: No Chills, No Night Sweats; Fatigue, Malaise; No Appetite, No Other HEENT: No Head Aches, No Visual Changes, No Eye Pain, No Ear Pain, No Dysphasia , No Sinus Congestion, No Post Nasal Drip, No Sore Throat, No Other Pulmonary: No Dyspnea, No Cough, No Pleuritic Chest Pain, No Other Cardiovascular: No: Chest Pain, Palpitations, Orthopnea, Paroxysmal Noc. Dyspnea, Edema, Lt Headedness, Other Objective-Cardiology Exam Last Set of Vital Signs Vital Signs 10/27/18 10/27/18 10/27/18 05:55 10:44 10:49 Temp 97.5 Pulse 85 Resp 20 B/P (MAP) 140/74 (96) Pulse Ox 96 O2 Delivery Nasal Cannula O2 Flow Rate 1.00 Capillary Refill : I&O Intake and Output 10/27/18 00:00 Intake Total 1480 ml Balance 1480 ml Intake Oral 1480 ml # Voids 11 # Urine Diapers 2 # Bowel Movements 4 General: Alert, Oriented X3, Cooperative HEENT: Atraumatic, PERRLA Neck: Supple, No JVD, No Thyromegaly Lungs: Clear to Auscultation, Normal Air Movement Heart: Regular Rate, Normal S1, Normal S2, Other (systolic murmur at the left sternal border) Abdomen: Normal Bowel Sounds, Soft, No Tenderness, No Hepatosplenomegaly, No Masses Extremities: No Clubbing, No Cyanosis, Other (right BKA) Skin: No Rashes, No Breakdown, No Significant Lesion Neuro: Normal Speech, Sensation Intact Psych/Mental Status: Mental Status NL, Mood NL Results Lab Laboratory Tests Test 10/26/18 15:15 10/26/18 20:19 10/27/18 05:19 Range/Units Glucometer 85 180 H 207 H 70-110 MG/DL A/P-Cardiology Admission Diagnosis Right BKA Peripheral arterial disease Coronary artery disease Anemia Assessment/Plan 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 Continue to monitor Anemia, monitored by primary care physician. Transfuse as needed.next Paroxysmal atrial fibrillation, continue to monitor, restarted on Eliquis, I am planning to stop aspirin and continue Plavix Status post respiratory failure, improved. Continue to monitor Coronary artery disease, status post drug-eluting stent deployment using 2 stents to the LAD Promus Premier 3.012 mm and 3.58 mm, done by Dr. Clements. I will discontinue aspirin and continue Plavix Aortic stenosis, echocardiogram showed normal LV size and function with ejection fraction 50-55 percent, moderate aortic valve stenosis with valve area 1.0 cm, severe pulmonary hypertension with PA pressure of 50 mmHg. Continue to monitor Hypertension, continue to monitor blood pressure Hyperlipidemia, maintained on Crestor and Zetia, continue to monitor lipids Moderate bilateral carotid stenosis, diffuse atherosclerotic plaques will need to have workup done in the future regarding her carotids Diabetes mellitus, followed and managed by primary care physician History of heart disease. Clinical Quality Measures DVT/VTE Risk/Contraindication: Risk Factor Score Per Nursin GURWINDER CHINCHILLA MD Oct 27, 2018 13:06
[2018-10-27 13:55] VITALS: BP 140/74
--- NOTE | 2018-10-27 13:55 | NUR ---
Discharge instructions given to Pt. Time allowed for questions. IV and PICC line removed with no complication. Pt. left facility via wheel chair accompanied by friend and staff.
--- NOTE | 2018-10-27 14:24 | Therapy Team Discharge Summary ---
Therapy Discharge Summary Discharge Recommendations Date of Discharge Therapy D/C Recommendations: Home w/ Family Support, Occupational Therapy Home Care Occupational Therapy Decreased Activ Tolerance, Decreased Safety Aware, Decreased UE Strength, Dependent Transfers, Impaired Bed Mobility, Impaired Coordination, Impaired Funct Balance, Impaired Self-Care Skills PT Jail Goals Jail Goals PT Recycle Driver Goals Time Frame: Oct 29, 2018 Transfers (B,C,W/C) (FIM): 4 Sit to Lying (QC): 3 Lying-Sitting on Side/Bed(QC): 3 Sit to Stand (QC): 3 Rollin Chair/Blt-pd-Zrcqm Xfer(QC): 3 Gait (FIM): 1 Distance: 5' Gait Level of Assist: 3 Gait Assistive Device: FWW OT Recycle Driver Goals Jail Goals Time Frame: Nov 19, 2018 Eating (FIM): 7 Eating (QC): 7 Groomin Oral Hygiene (QC): 6 Bathing(FIM): 5 Bathing Location: L Arm, R Arm, L Upper Leg, R Upper Leg, L Lower Leg ( including foot), Chest, Abdomen Upper Body Dressing(FIM): 6 (goal met) Lower Body Dressing(FIM): 5 (goal met) Toileting(FIM): 6 (goal met) Toileting Hygiene (QC): 6 (goal met) Transfers (B,C,W/C) (FIM): 5 (Pt still need min A ) Toilet/Commode Transfer(FIM): 5 (min A) Toilet/Commode Transfer (QC): 5 (min A) Tub Transfer(FIM): 0 Shower Transfer(FIM): 5 (min A) Additional Goals: 1-Demonstrate ADL Tasks, 2-Verbalize Understanding, 3- ImproveStrength/Andrzej 1=Demonstrate adherence to instructed precautions during ADL tasks. 2=Patient will verbalize/demonstrate understanding of assistive devices/ modifications for ADL. 3=Patient will improve strength/tolerance for activity to enable patient to perform ADL's. Patient d/c from [facility] to custodial with Skilled OT recommendations. CHALO TRIVEDI OT Oct 27, 2018 14:24
--- NOTE | 2018-10-28 09:40 | Therapy Team Discharge Summary ---
Therapy Discharge Summary Discharge Recommendations Date of Discharge Oct 27, 2018 at 13:55 Therapy D/C Recommendations: Occupational Therapy Home Care, [facility] ( [facility]CU/[facility]) (Physical Therapy) Physical Therapy This patient was seen for skilled therapy on SWB status post acute stay due to a right BKA. Prior to acute hospital admit, she was mod indep with mobility. Upon initial evaluation on SWB, she was dep for bed mobility and transfers. Treatment focused on functional strength to facilitate transfers as well as transfer training with education on safety. At last visit, she was able to perform bed mobilty at a sBA level but continued to require max assist to transfer bed to/from chair. Pt to transfer to an outside LTC facility with recommended continued skilled therapy intervention as goals have not been fully met at this time. DC from this facility at this time. Occupational Therapy Decreased Activ Tolerance, Decreased Safety Aware, Decreased UE Strength, Dependent Transfers, Impaired Bed Mobility, Impaired Coordination, Impaired Funct Balance, Impaired Self-Care Skills PT Usp Goals Area Captain Goals PT Area Captain Goals Time Frame: Oct 29, 2018 Transfers (B,C,W/C) (FIM): 4 Sit to Lying (QC): 3 Lying-Sitting on Side/Bed(QC): 3 Sit to Stand (QC): 3 Rollin Chair/Bot-bh-Tpejx Xfer(QC): 3 Gait (FIM): 1 Distance: 5' Gait Level of Assist: 3 Gait Assistive Device: FWW Goals remain unmet at this time. OT Area Captain Goals Area Captain Goals Time Frame: Nov 19, 2018 Eating (FIM): 7 Eating (QC): 7 Groomin Oral Hygiene (QC): 6 Bathing(FIM): 5 Bathing Location: L Arm, R Arm, L Upper Leg, R Upper Leg, L Lower Leg ( including foot), Chest, Abdomen Upper Body Dressing(FIM): 6 (goal met) Lower Body Dressing(FIM): 5 (goal met) Toileting(FIM): 6 (goal met) Toileting Hygiene (QC): 6 (goal met) Transfers (B,C,W/C) (FIM): 5 (Pt still need min A ) Toilet/Commode Transfer(FIM): 5 (min A) Toilet/Commode Transfer (QC): 5 (min A) Tub Transfer(FIM): 0 Shower Transfer(FIM): 5 (min A) Additional Goals: 1-Demonstrate ADL Tasks, 2-Verbalize Understanding, 3- ImproveStrength/Andrzej 1=Demonstrate adherence to instructed precautions during ADL tasks. 2=Patient will verbalize/demonstrate understanding of assistive devices/ modifications for ADL. 3=Patient will improve strength/tolerance for activity to enable patient to perform ADL's. LAURA GUEVARA PT Oct 28, 2018 09:40
--- NOTE | 2018-10-29 11:14 | Therapy Team Discharge Summary ---
Therapy Discharge Summary Discharge Recommendations Date of Discharge Oct 27, 2018 at 13:55 Therapy D/C Recommendations: [facility] (Physical Therapy) Occupational Therapy Mrs Estefany Fernandez was been seen in OT for self care activities , func transfer training ,trunk balancing & strengthening ex to BUE . On D/C pt needs mod-max A to transfer from bed to w/c with transfer board , increased MS in BUE 4/5, increased sitting balance to good . Pt still requires SBA in UB dressing./ undressing garments, Supervision for grooming activity . Pt d/c from OT to LTC facility with OT recommendation . Decreased Activ Tolerance, Decreased Safety Aware, Decreased UE Strength, Dependent Transfers, Impaired Bed Mobility, Impaired Coordination, Impaired Funct Balance, Impaired Self-Care Skills PT Residential Goals Public Policy Mediator Goals PT Public Policy Mediator Goals Time Frame: Oct 29, 2018 Transfers (B,C,W/C) (FIM): 4 Sit to Lying (QC): 3 Lying-Sitting on Side/Bed(QC): 3 Sit to Stand (QC): 3 Rollin Chair/Umg-aq-Cshbe Xfer(QC): 3 Gait (FIM): 1 Distance: 5' Gait Level of Assist: 3 Gait Assistive Device: FWW OT Residential Goals Public Policy Mediator Goals Time Frame: Nov 19, 2018 Eating (FIM): 7 Eating (QC): 7 Groomin Oral Hygiene (QC): 6 Bathing(FIM): 5 Bathing Location: L Arm, R Arm, L Upper Leg, R Upper Leg, L Lower Leg ( including foot), Chest, Abdomen Upper Body Dressing(FIM): 6 (5) Lower Body Dressing(FIM): 5 (3) Toileting(FIM): 6 (goal met) Toileting Hygiene (QC): 6 (goal met) Transfers (B,C,W/C) (FIM): 5 (Pt still need min A ) Toilet/Commode Transfer(FIM): 5 (mod A) Toilet/Commode Transfer (QC): 5 (mod A) Tub Transfer(FIM): 0 (0) Shower Transfer(FIM): 5 (mod A) Additional Goals: 1-Demonstrate ADL Tasks, 2-Verbalize Understanding, 3- ImproveStrength/Andrzej 1=Demonstrate adherence to instructed precautions during ADL tasks. 2=Patient will verbalize/demonstrate understanding of assistive devices/ modifications for ADL. 3=Patient will improve strength/tolerance for activity to enable patient to perform ADL's. HCALO TRIVEDI OT Oct 29, 2018 11:14
== END 2018-10-27 13:55 | DRG 560 ==
LOC: 4TH 10:59
PROVIDERS: ADMIT Internal Medicine; ATTEND Internal Medicine
DX: Z47.81 Encounter for orthopedic aftercare following surgical amputation (principal); Z89.511 Acquired absence of right leg below knee; J81.1 Chronic pulmonary edema; J44.1 Chronic obstructive pulmonary disease with (acute) exacerbation; J96.10 Chronic respiratory failure, unspecified whether with hypoxia or hypercapnia; E87.1 Hypo-osmolality and hyponatremia; K92.1 Melena; E87.70 Fluid overload, unspecified; Z66 Do not resuscitate; I35.0 Nonrheumatic aortic (valve) stenosis; I27.22 Pulmonary hypertension due to left heart disease; I48.0 Paroxysmal atrial fibrillation; R01.1 Cardiac murmur, unspecified; I10 Essential (primary) hypertension; E11.59 Type 2 diabetes mellitus with other circulatory complications; E78.2 Mixed hyperlipidemia; I25.10 Atherosclerotic heart disease of native coronary artery without angina pectoris; E03.9 Hypothyroidism, unspecified; D50.0 Iron deficiency anemia secondary to blood loss (chronic); F03.90 Unspecified dementia, unspecified severity, without behavioral disturbance, psychotic disturbance, mood disturbance, and anxiety; G54.6 Phantom limb syndrome with pain; I27.20 Pulmonary hypertension, unspecified; I65.23 Occlusion and stenosis of bilateral carotid arteries; Z79.4 Long term (current) use of insulin; Z95.5 Presence of coronary angioplasty implant and graft
CPT/HCPCS: 36415; 80048; 80053; 82962; 85025; 85027; 93005; 94640; 94760